=== PATIENT | male | born 1950 | race Caucasian/White ===

== ENCOUNTER 2022-10-03 17:51 | Emergency (ER) | payer OTHER, SELFPAY ==
[2022-10-03] VITALS (7 sets, daily range): BP systolic 94–108; BP diastolic 52–66; PULSE 73–82; RESP 18–25; TEMP 36.7; O2SAT 88–94; BMI 20.7
--- NOTE | 2022-10-03 18:16 | ECG_ITS ---
[facility] Test Date: 2022-10-03 Pat Name: Robbie Rodriguez Department: Room: Gender: Male Electronic Coils Supervisor: : 1950 Requested By: Shan Anaya Order Number: [id number] Yaron MD: Kamila Miguel M.D. Measurements Intervals [place] Rate: 87 P: 10 MO: 140 QRS: -3 QRSD: 87 T: 8 QT: 342 QTc: 412 Interpretive Statements SINUS RHYTHM WITH OCCASIONAL VENTRICULAR PREMATURE COMPLEXES POSSIBLE RIGHT VENTRICULAR CONDUCTION DELAY [RSR (QR) IN V1/V2] No previous ECG available for comparison Electronically Signed On 10-05-2022 12:06:25 VOICE PATHOLOGIST by Kamila Miguel M.D. [id number] f
--- NOTE | 2022-10-03 18:17 | XRR_ITS ---
PROCEDURE INFORMATION: Exam: XR Chest Exam date and time: 10/03/2022 7:27 PM Age: 71 years old Clinical indication: Shortness of breath; Additional info: SOB TECHNIQUE: Imaging protocol: Radiologic exam of the chest. Views: 1 view. COMPARISON: CR XR shoulder RT min 2V* [id number] 12/24/2015 3:21 PM FINDINGS: Tubes, catheters and devices: Left-sided Port-A-Cath. Lungs: Bilateral mid to lower lung field atelectasis versus infiltrate. Pleural spaces: Unremarkable. No pleural effusion. No pneumothorax. Heart/Mediastinum: Unremarkable. No cardiomegaly. Bones/joints: Unremarkable. XR/XR chest 1V portable [id number] IMPRESSION: Bilateral mid to lower lung field atelectasis versus infiltrate.
--- NOTE | 2022-10-03 18:21 | PC.NURSE ---
PT PLACED ON CONTINUOUS NIBP, SPO2, AND CM
[2022-10-03 18:28] LABS: Hemoglobin 9.5 g/dL (11.7-16.6); Mean Corpuscular HGB Conc 31.7 g/dL (30.0-36.0); Mean Corpuscular Hemoglobin 27.8 pg (28.0-34.0); Mean Corpuscular Volume 87.7 fl (80-94); Mean Platelet Volume 10.7 fL (7.4-10.4); Platelet Count 387 10^3/cmm (130-400); Red Blood Count 3.42 10^6/uL (4.1-5.3); Red Cell Distribution Width 16.7 % (12.1-15.1); White Blood Count 7.9 10^3/uL (4.0-10.0)
[2022-10-03] MEDS: ipratropium-albuterol 3 mL Neb INHALATION (18:32)
[2022-10-03 18:53] LABS: ABG PCO2 34.3 mmHg (35-45); Arterial Blood Gas Hematocrit 46.7 % (42-52); Base Excess ABG 3.9 mmol/L (-2.0-2.0); Blood Gas Allen Test Pos; Blood Gas Operator Identificat CAK; Blood Gas Sample Site Radial, left; Blood Gas Sample Type Arterial; Carboxyhemoglobin 1.3 %THgb (0.4-20.1); HCO3 ABG 26.8 mmol/L (22-26); HGB O2 Sat 92.9 % (95-100); Methemoglobin 0.6 % (0.4-1.5); Oxygen Device NC; Total Hemoglobin 15.2 g/dL (14-18)
[2022-10-03 19:14] LABS: Absolute Neutrophil 7.3 10^3/cmm (1.4-6.5); Anisocytosis 1+; Band Neutrophils Absolute 0.3 10^3/cmm (0.0-1.2); Eosinophils 0 %; Lymphocytes 1 %; Lymphocytes Absolute 0.1 10^3/cmm (1.2-3.4); Monocytes Absolute 0.4 10^3/cmm (0.1-0.6); Platelet Estimate Normal (Normal); Poikilocytosis 2+; Segmented Neutrophils 88 %; Total Cells Counted 100 (0-100)
[2022-10-03 19:15] LABS: Ovalocytes 2+; Toxic Granulation 1+; Toxic Vacuolation 1+
[2022-10-03 19:16] LABS: Acanthocytes Trace
[2022-10-03 19:19] LABS: NT Pro B Type Natriuretic Pept 176 pg/mL (0-125); Procalcitonin 0.08 ng/mL (0-0.5)
[2022-10-03 19:30] LABS: Alanine Aminotransferase 91 U/L (0-41); Albumin Level 2.3 g/dL (3.5-5.2); Alkaline Phosphatase 108 U/L (40-130); Anion Gap 14.9 (5-19); Aspartate Amino Transferase 53 U/L (0-40); Blood Urea Nitrogen 10 mg/dL (8-23); C Reactive Protein 114.7 mg/L (0.0-4.9); Calcium 8.7 mg/dL (8.5-10.5); Carbon Dioxide 24 mmol/L (22-29); Chloride 101 mmol/L (98-107); Globulin 2.8 g/dL (1.3-4.6); Glucose 99 mg/dL (65-115); Osmolality Calculated 281 mOsm/kg (285-295); Potassium 3.9 mmol/L (3.5-5.1); Sodium 136 mmol/L (136-145); Total Bilirubin 0.4 mg/dL (0.15-1.2); Total Protein 5.1 g/dL (6.6-8.7)
--- NOTE | 2022-10-03 20:23 | W.ED.SOB ---
HPI - SOB/Dyspnea General: Chief Complaint: Shortness of Breath/Dyspnea Stated Complaint: RESP DISTRESS Time Seen by Provider: 10/03/22 18:14 Source: patient and EMS History of Present Illness: HPI Narrative: 71-year-old male evidently with a history of post COVID lung disease presenting with increased shortness of breath and fever. Evidently his saturations were in the 70s on room air in the assisted, although the patient tells me he is usually on 3 L of oxygen. Currently does not feel short of breath. Received a breathing treatment in route. His temperature is 98.1 here. It was elevated in the assisted and he got medication for this. He says he is feeling better after his temperatures come down. He has had a cough with some sputum production. MD elicited complaint: shortness of breath Pertinent past history: other Exacerbating factors: exertion Relieving factors: oxygen and bronchodilators Associated symptoms: Reports chest congestion, cough, fever(s) and orthopnea; Deny chest pain, diaphoresis, dizziness, extremity pain, nausea or vomiting Treatment prior to arrival: oxygen and bronchodilator Review of Systems Const: Reports: fever(s) and chills; Denies: body aches or diaphoresis Eyes: Denies: change in vision ENMT: Denies: throat pain Card: Reports: orthopnea; Denies: chest pain Resp: Reports: dyspnea, productive cough and chest congestion GI: Denies: nausea or vomiting Musc: Denies: extremity pain Neuro: Denies: dizziness Physical Exam Const: GENERAL APPEARANCE: cooperative, ill appearing (Mildly) and frail appearing HENMT: COMMON NORMALS: normocephalic and Normal external nose present HEAD & SCALP: normocephalic FACE & SINUS: normal facial exam and face symmetric NOSE: Normal external nose present Eye: COMMON NORMALS: Equal, round and reactive pupils present and EOMs intact bilaterally PUPIL: Yes Equal, round and reactive pupils present Neck/C-Spine: GENERAL: Yes trachea midline Chest: CHEST: Yes Symmetrical chest wall rise Resp: COMMON NORMALS: normal respiratory effort, No use of accessory muscles and clear to auscultation bilaterally AUSCULTATION: clear to auscultation bilaterally Cardio: COMMON NORMALS: regular rate and regular rhythm RATE: regular rate RHYTHM: regular rhythm GI: COMMON NORMALS: Normal to inspection, nondistended, normoactive bowel sounds present, Soft to palpation and non-tender PALPATION: Yes Soft to palpation Extremity: COMMON NORMALS: no pedal edema Neuro: WILFREDO COMA SCALE: document GCS findings Forest coma scale eye opening: Spontaneous [place] coma scale verbal response: Orientated Wilfredo coma scale motor response: Obey commands Wilfredo coma scale total score: 15 Skin: COMMON NORMALS: no wounds Course Vital Signs: Vital signs: Vital Signs Temperature 98.1 F 10/03/22 17:57 Pulse Rate 75 10/03/22 20:49 Respiratory Rate 18 10/03/22 20:49 Blood Pressure 99/52 10/03/22 20:49 Pulse Oximetry 91 10/03/22 20:49 Oxygen Delivery Me thod 10/03/22 18:44 Oxygen Flow Rate 4 10/03/22 18:44 MDM - SOB/Dyspnea Medical Decision Making Patient is not in any respiratory distress. He is on 4 L satting 93%. Respiratory rate is fallen. He is sinus at 75 with a blood pressure of 100/60. Hemoglobin is 9-1/2. White blood cell count 7.9. pH is 7.5. PO2 was 69 on 3 L. Chest x-ray reveals bilateral mid to lower lung field atelectasis versus infiltrate. Will cover with antibiotics. We will give him steroids. Nebulizer treatments. Lab Data : 10/03/22 17:59 10/03/22 18:41 Labs/Radiology: Radiology Impressions Chest X-Ray 10/03/22 18:17 IMPRESSION: Bilateral mid to lower lung field atelectasis versus infiltrate. Laboratory Results WBC 7.9 10^3/uL (4.0-10.0) 10/03/22 17:59 RBC 3.42 10^6/uL (4.1-5.3) L 10/03/22 17:59 Hgb 9.5 g/dL (11.7-16.6) L 10/03/22 17:59 Hct 30.0 % (42.0-52.0) L 10/03/22 17:59 MCV 87.7 fl (80-94) 10/03/22 17:59 MCH 27.8 pg (28.0-34.0) L 10/03/22 17:59 MCHC 31.7 g/dL (30.0-36.0) 10/03/22 17:59 RDW 16.7 % (12.1-15.1) H 10/03/22 17:59 Plt Count 387 10^3/cmm (130-400) 10/03/22 17:59 MPV 10.7 fL (7.4-10.4) H 10/03/22 17:59 Lymph % (Auto) Not Reportable 10/03/22 17:59 [place] % (Auto) Not Reportable 10/03/22 17:59 Lymph # (Auto) Not Reportable 10/03/22 17:59 [place] # (Auto) Not Reportable 10/03/22 17:59 Total Counted 100 (0-100) 10/03/22 17:59 Atypical Lymphs % 0.0 % (0-5) 10/03/22 17:59 Absolute Neutrophils 7.3 10^3/cmm (1.4-6.5) H 10/03/22 17:59 Segmented Neutrophils 88 % 10/03/22 17:59 Abs Segm Neuts (Man) 7.0 10/cmm (1.6-7.1) 10/03/22 17:59 Band Neutrophils 4.0 % 10/03/22 17:59 Abs Band Neuts (Man) 0.3 10^3/cmm (0.0-1.2) 10/03/22 17:59 Absolute Lymphocytes 0.1 10^3/cmm (1.2-3.4) L 10/03/22 17:59 Lymphocytes (Manual) 1 % 10/03/22 17:59 Monocytes (Manual) 5.0 % 10/03/22 17:59 Absolute Monocytes 0.4 10^3/cmm (0.1-0.6) 10/03/22 17:59 Eosinophils (Manual) 0 % 10/03/22 17:59 Absolute Eosinophils 0.0 10^3/cmm (0.0-0.7) 10/03/22 17:59 Basophils (Manual) 0.0 % 10/03/22 17:59 Absolute Basophils 0.0 10^3/cmm (0.0-0.2) 10/03/22 17:59 Metamyelocytes 2.0 % 10/03/22 17:59 Toxic Granulation 1+ H 10/03/22 17:59 Toxic Vacuolation 1+ H 10/03/22 17:59 Platelet Estimate Normal (Normal) 10/03/22 17:59 Poikilocytosis 2+ H 10/03/22 17:59 Anisocytosis 1+ H 10/03/22 17:59 Ovalocytes 2+ H 10/03/22 17:59 Acanthocytes (Spur) Trace 11 17:59 PT 19.40 SECONDS (12.1-14.9) H 10/03/22 17:59 INR 1.60 (0.8-1.2) H 10/03/22 17:59 Specimen Type Arterial 10/03/22 18:41 Sample Site Radial, left 10/03/22 18:41 ABG pH 7.50 (7.35-7.45) H 10/03/22 18:41 ABG pCO2 34.3 mmHg (35-45) L 10/03/22 18:41 ABG pO2 69.0 mmHg (80.0-100.0) L 10/03/22 18:41 ABG HCO3 26.8 mmol/L (22-26) H 10/03/22 18:41 ABG Base Excess 3.9 mmol/L (-2.0-2.0) H 10/03/22 18:41 Colt Test Pos 10/03/22 18:41 Hematocrit 46.7 % (42-52) 10/03/22 18:41 Hgb O2 Saturation 92.9 % (95-100) L 10/03/22 18:41 Carboxyhemoglobin 1.3 %THgb (0.4-20.1) 10/03/22 18:41 Methemoglobin 0.6 % (0.4-1.5) 10/03/22 18:41 Total Hemoglobin 15.2 g/dL (14-18) 10/03/22 18:41 O2 Delivery Device Nc 10/03/22 18:41 O2 Liters/Min 3.0 % 10/03/22 18:41 FiO2 32.0 % 10/03/22 18:41 Fine Arts Teacher ID Cak 10/03/22 18:41 Sodium 136 mmol/L (136-145) 10/03/22 18:41 Potassium 3.9 mmol/L (3.5-5.1) 10/03/22 18:41 Chloride 101 mmol/L (98-107) 10/03/22 18:41 Carbon Dioxide 24 mmol/L (22-29) 10/03/22 18:41 Anion Gap 14.9 (5-19) 10/03/22 18:41 BUN 10 mg/dL (8-23) 10/03/22 18:41 Creatinine 0.4 mg/dL (0.7-1.2) L 10/03/22 18:41 GFR Calculation Not Reportable 10/03/22 18:41 Glucose 99 mg/dL (65-115) 10/03/22 18:41 Calculated Osmolality 281 mOsm/kg (285-295) L 10/03/22 18:41 Lactic Acid 1.0 mmol/L (0.5-2.2) 10/03/22 17:59 Calcium 8.7 mg/dL (8.5-10.5) 10/03/22 18:41 Total Bilirubin 0.4 mg/dL (0.15-1.2) 10/03/22 18:41 AST 53 U/L (0-40) H 10/03/22 18:41 ALT 91 U/L (0-41) H 10/03/22 18:41 Alkaline Phosphatase 108 U/L (40-130) 10/03/22 18:41 C-Reactive Protein 114.7 mg/L (0.0-4.9) H 10/03/22 18:41 NT-Pro-B Natriuret Pep 176 pg/mL (0-125) H 10/03/22 18:41 Total Protein 5.1 g/dL (6.6-8.7) L 10/03/22 18:41 Albumin 2.3 g/dL (3.5-5.2) L 10/03/22 18:41 Globulin 2.8 g/dL (1.3-4.6) 10/03/22 18:41 Procalcitonin 0.08 ng/mL (0-0.5) 10/03/22 18:41 Nasal Influ A H1 2008 PCR Not detected (NOT DETECT) 10/03/22 18:41 Adenovirus (PCR) Not detected (NOT DETECT) 10/03/22 18:41 C. pneumoniae DNA (PCR) Not detected (NOT DETECT) 10/03/22 18:41 Coronavirus 229E (PCR) Not detected (NOT DETECT) 10/03/22 18:41 Human Metapneumovir PCR Not detected (NOT DETECT) 10/03/22 18:41 Influenza A (H1) PCR Not detected (NOT DETECT) 10/03/22 18:41 Influenza A (H3) PCR Not detected (NOT DETECT) 10/03/22 18:41 Influenza Type A (PCR) Not detected (NOT DETECT) 11 18:41 Influenza Type B (PCR) Not detected (NOT DETECT) 10/03/22 18:41 M. pneumoniae (PCR) Not detected (NOT DETECT) 10/03/22 18:41 Parainfluenza 1 (PCR) Not detected (NOT DETECT) 11 18:41 Parainfluenza 2 (PCR) Not detected (NOT DETECT) 10/03/22 18:41 Parainfluenza 3 (PCR) Not detected (NOT DETECT) 10/03/22 18:41 Parainfluenza 4 (PCR) Not detected (NOT DETECT) 10/03/22 18:41 RSV Type A (PCR) Not detected (NOT DETECT) 10/03/22 18:41 RSV Type B (PCR) Not detected (NOT DETECT) 10/03/22 18:41 Entero/Rhino (PCR) Not detected (NOT DETECT) 10/03/22 18:41 SARS-CoV-2 (PCR) Detected (NOT DETECT) A 10/03/22 18:41 Discharge Plan Discharge Patient Disposition: Home Clinical Impression: Acute exacerbation of chronic obstructive airways disease Condition: Stable Prescriptions: New Medrol (Shamir) 4 mg tablets,dose pack See Rx Instructions .ROUTE .COMPLEX Qty: 21 0RF Rx Instructions: orally per package directions doxycycline hyclate 100 mg tablet 100 mg PO BID 7 Days Qty: 14 0RF albuterol sulfate 2.5 mg/0.5 mL solution for nebulization 2.5 mg inhalation Q4H PRN (Reason: shortness of breath or wheezing) Qty: 30 0RF Paxlovid (EUA) 300 mg (150 mg x 2)-100 mg tablets,dose pack See Rx Instructions .ROUTE .COMPLEX Qty: 30 0RF Rx Instructions: take TWO 150 mg tablets of nirmatrelvir with ONE 100 mg tablet of ritonavir twice daily for 5 days Discharge Orders: Discharge ED (Routine); Ordered 10/03/22 Ordered By: Shan Kimball Referrals: Rubia Maya MD [Primary Care Provider] - 1-3 days Patient Instructions: Acute Bronchitis (ED), COPD (Chronic Obstructive Pulmonary Disease) (ED), COVID-19 (Coronavirus Disease 2019) (ED) Activity Restrictions/Additional Instructions: Use the albuterol prescribed every 4 hours while awake for the next 48 hours, then as needed. Other medications as directed. Return for worsening shortness of breath despite treatment, continued fever despite 3-4 doses of antibiotics, chest pain, mental status changes, any other concerning symptoms. Oxygen should be a 3 to 4 L by nasal cannula until cleared to move down by physician. Follow-up with your doctor this week. Coding Level of Care Code ED Slope Hoist Operator for Melissa Fwd Exam Comprehensive
[2022-10-03 20:33] LABS: Adenovirus Not Detected (NOT DETECT); Chlamydia Pneumoniae Not Detected (NOT DETECT); Coronavirus 229E,HKU1,NL63,OC4 Not Detected (NOT DETECT); Human Metapneumovirus Not Detected (NOT DETECT); Human Rhinovirus/Enterovirus Not Detected (NOT DETECT); Influenza A Not Detected (NOT DETECT); Influenza A H1 Not Detected (NOT DETECT); Influenza A H1-2009 Not Detected (NOT DETECT); Influenza A H3 Not Detected (NOT DETECT); Influenza B Not Detected (NOT DETECT); Mycoplasma Pneumoniae Not Detected (NOT DETECT); Parainfluenza Virus Type 1 Not Detected (NOT DETECT); Parainfluenza Virus Type 2 Not Detected (NOT DETECT); Parainfluenza Virus Type 3 Not Detected (NOT DETECT); Parainfluenza Virus Type 4 Not Detected (NOT DETECT); Respiratory Syncytial Virus A Not Detected (NOT DETECT); Respiratory Syncytial Virus B Not Detected (NOT DETECT); SARS-COV-2 Detected (NOT DETECT)
[2022-10-03] MEDS: doxycycline 100 mg Tablet PO (21:14)
== END 2022-10-03 21:43 | disposition home or self-care (01) ==
PROVIDERS: Emergency Provider Emergency Medicine; PCP Family Medicine
DX: J44.1 Chronic obstructive pulmonary disease with (acute) exacerbation (principal)
CPT/HCPCS: 36415; 36600; 71045; 80053; 82805; 83605; 83880; 84145; 85007; 85025; 85610; 86140; 87040; 87486; 87581; 87633; 93005; 94640; 96374; 99285; J2930

== ENCOUNTER 2022-10-05 08:10 | Inpatient (IN) | payer OTHER, SELFPAY ==
[2022-10-05] VITALS (12 sets, daily range): BP systolic 94–111; BP diastolic 60–71; PULSE 56–113; RESP 14–24; TEMP 36.4–38.9; O2SAT 89–99
--- NOTE | 2022-10-05 08:13 | XR_ITS ---
WS: [id number] Portable AP upright chest, 10/05/2022 Clinical Data: dyspnea/cough Comparison: Chest, 10/03/2022 Findings: Bilateral patchy opacities have not changed in both lower lobes. These opacities could repr esent atelectasis versus pneumonia. The heart remains enlarged. No nodules, masses or effusions are s een. The pulmonary vascularity is not remarkable. No pneumothorax is present. There is a left Port-A- Cath which ends in the superior vena cava. There are monitor leads on the chest wall. XR/XR chest 1V portable [id number] Impression: 1. No change in bilateral lower lobe opacities. 2. Cardiomegaly.
--- NOTE | 2022-10-05 08:25 | W.ED.SOB ---
HPI - SOB/Dyspnea General: Chief Complaint: Shortness of Breath/Dyspnea Stated Complaint: SOB, Covid, fever Time Seen by Provider: 10/05/22 08:12 Source: patient Mode of arrival: ambulatory History of Present Illness: HPI Narrative: 71-year-old male presents from the group home complaining of shortness of breath fever and hypoxia. He had this onset of symptoms 11 days ago and was tested positive for COVID 2 days ago. He had been hospitalized at [facility] for COVID and complications earlier this year. He was hospitalized later on this summer in June and July as well. On October 03 he had a positive COVID PCR test was given Paxlovid steroids and antibiotics and discharged back to the group home. He came back today hypoxic requiring 5 to 6 L by nasal cannula. He denies any chest pain. He has a history of DVT/PE dating back into the 90s and he is on anticoagulant. MD elicited complaint: shortness of breath and cough Pertinent past history: PE and DVT Onset (ago): day(s) () Timing: constant Severity: severe Exacerbating factors: exertion and coughing Relieving factors: oxygen and rest Associated symptoms: Reports chest congestion, cough and fever(s); Deny abdominal pain, chest pain, diaphoresis, dizziness, extremity pain, hemoptysis, lightheadedness, myalgias, nausea, orthopnea, palpitations, paresthesias, polydipsia, polyuria, rash, sense of impending doom, syncope or vomiting Treatment prior to arrival: oxygen Review of Systems Const: Reports: fever(s), chills, fatigue and malaise; Denies: diaphoresis ENMT: Denies: throat pain, ear or mastoid pain, nasal discharge or nasal congestion Card: Denies: chest pain, palpitations, lightheadedness, syncope or orthopnea Resp: Reports: dyspnea, non-productive cough, wheezing and chest congestion; Denies: productive cough or hemoptysis GI: Denies: abdominal pain, nausea or vomiting : Denies: flank pain, difficulty urinating, dysuria, urinary frequency or urinary urgency Musc: Denies: neck pain, back pain or extremity pain Skin/Breast: Denies: rash or pruritus Neuro: Denies: dizziness Endo: Denies: polyuria or polydipsia PFS ED PFSH: Medical History BPH (benign prostatic hyperplasia) Diastolic CHF DVT (deep venous thrombosis) GERD (gastroesophageal reflux disease) Hyperlipidemia Hypotension Neuropathy Obstructive sleep apnea Pneumonia due to COVID-19 virus Waldenstroms macroglobulinemia Surgical History History of tonsillectomy Family History Other CAD (coronary artery disease) Social History Smoking and tobacco status: former smoker Alcohol intake: never Physical Exam Const: COMMON NORMALS: no acute distress GENERAL APPEARANCE: cooperative and comfortable ORIENTATION/CONSCIOUSNESS: Yes awake, Yes oriented to person, Yes oriented to place and Yes oriented to time HENMT: COMMON NORMALS: normocephalic, atraumatic and hearing grossly normal bilaterally HEAD & SCALP: normocephalic and atraumatic Resp: COMMON NORMALS: normal respiratory effort, No retractions and No use of accessory muscles AUSCULTATION: rhonchi and wheezes Cardio: COMMON NORMALS: regular rhythm and No murmurs present (Cardio) RATE: tachycardic RHYTHM: regular rhythm GI: COMMON NORMALS: Soft to palpation and No hepatosplenomegaly present AUSCULTATION: Yes normoactive bowel sounds PALPATION: Yes Soft to palpation, No Tenderness to palpation present (GI), No Guarding due to palpation present (GI) and Yes No hepatosplenomegaly present Extremity: COMMON NORMALS: normal to inspection, capillary refill normal, no clubbing, cyanosis or edema, no calf tenderness and no pedal edema Neuro: SENSORIUM/ORIENTATION: Yes oriented to person, Yes oriented to place and Yes oriented to time Skin: COMMON NORMALS: no rashes or lesions noted GENERAL SKIN EXAM: no rashes or lesions noted Course Vital Signs: Vital signs: Vital Signs Temperature 97.9 F 10/05/22 15:35 Pulse Rate 76 10/05/22 15:35 Respiratory Rate 18 10/05/22 15:35 Blood Pressure 97/61 10/05/22 15:35 Pulse Oximetry 91 10/05/22 15:35 Oxygen Delivery Me thod 10/05/22 15:35 Oxygen Flow Rate 4 10/05/22 14:00 MDM - SOB/Dyspnea Medical Decision Making To CT shows pneumonia no PE. Patient is still requiring oxygen White count of 14,000 with a left shift cultures done and started on Levaquin Zosyn and vancomycin. Discussed with hospitalist orders written. Medical Records I reviewed the patient's medical records. Lab Data I reviewed the patient's lab results. : 10/05/22 09:03 10/05/22 09:03 Labs/Radiology: Radiology Impressions Chest X-Ray 10/05/22 08:13 Impression: 1. No change in bilateral lower lobe opacities. 2. Cardiomegaly. Chest CTA 10/05/22 08:27 IMPRESSION: 1. No segmental pulmonary embolism or thoracic aortic dissection. No thoracic aortic aneurysm. 2. Bilateral lower lobe and inferior lingula more confluent ground-glass opacities are seen with some small regions of patchy consolidation in bilateral lower lobe posterior basilar regions. These findings may represent post acute covert syndrome or multifocal pneumonia, although lung parenchymal leukemic involvement cannot be excluded. Recommend correlation with clinical findings and follow-up. 3. Multiple nodular 4-5 mm ground-glass opacities are seen in bilateral apical regions. Right upper lobe 3-5 mm 3 nodules are also seen (series 4, images 14 and 15). Recommend short interval follow-up in 3-6 months. 4. Moderate to severe coronary arterial atherosclerotic vascular calcifications. COMMENTS: Consistent with the [place] [employer]'s Incidental Findings Committee white paper (J Am Josefina Radiol 2015): In patients aged 35 years and older with an incidental thyroid nodule equal to or greater than 1.[address], MRI or extrathyroidal US, further evaluation with dedicated thyroid US is recommended for patients with normal life expectancy and without comorbidities. For smaller nodules without suspicious features, no further evaluation or follow up is recommended. Laboratory Results WBC 14.6 10^3/uL (4.0-10.0) H 10/05/22 09:03 RBC 4.63 10^6/uL (4.1-5.3) 10/05/22 09:03 Hgb 12.7 g/dL (11.7-16.6) 10/05/22 09:03 Hct 40.8 % (42.0-52.0) L 10/05/22 09:03 MCV 88.1 fl (80-94) 10/05/22 09:03 MCH 27.4 pg (28.0-34.0) L 10/05/22 09:03 MCHC 31.1 g/dL (30.0-36.0) 10/05/22 09:03 RDW 16.8 % (12.1-15.1) H 10/05/22 09:03 Plt Count 493 10^3/cmm (130-400) H 10/05/22 09:03 MPV 10.2 fL (7.4-10.4) 10/05/22 09:03 Neut % (Auto) 90.9 % 10/05/22 09:03 Lymph % (Auto) 1.0 % 10/05/22 09:03 [place] % (Auto) 5.7 % 10/05/22 09:03 Eos % (Auto) 0.0 % 10/05/22 09:03 Baso % (Auto) 0.1 % 10/05/22 09:03 Neut # (Auto) 13.29 10^3/uL (1.8-7.7) H 10/05/22 09:03 Lymph # (Auto) 0.2 10^3/uL (0.8-4.8) L 10/05/22 09:03 [place] # (Auto) 0.8 10^3/uL (0.2-0.9) 10/05/22 09:03 Eos # (Auto) 0.0 10^3/uL (0.0-0.8) 10/05/22 09:03 Baso # (Auto) 0.0 10^3/uL (0.0-0.1) 10/05/22 09:03 Nucleated RBC % (auto) 0 % 10/05/22 09:03 Nucleated RBCs # 0.0 /100WBC 10/05/22 09:03 Sodium 139 mmol/L (136-145) 10/05/22 09:03 Potassium 4.1 mmol/L (3.5-5.1) 10/05/22 09:03 Chloride 100 mmol/L (98-107) 10/05/22 09:03 Carbon Dioxide 26 mmol/L (22-29) 10/05/22 09:03 Anion Gap 17.1 (5-19) 10/05/22 09:03 BUN 11 mg/dL (8-23) 10/05/22 09:03 Creatinine 0.5 mg/dL (0.7-1.2) L 10/05/22 09:03 GFR Calculation Not Reportable 10/05/22 09:03 Glucose 107 mg/dL (65-115) 10/05/22 09:03 Calculated Osmolality 288 mOsm/kg (285-295) 10/05/22 09:03 Lactic Acid 3.3 mmol/L (0.5-2.2) H 10/05/22 09:03 Lactic Acid (Sepsis) 2.1 mmol/L (0.5-2.2) 10/05/22 11:13 Calcium 9.7 mg/dL (8.5-10.5) 10/05/22 09:03 Total Bilirubin 0.5 mg/dL (0.15-1.2) 10/05/22 09:03 Direct Bilirubin 0.20 mg/dL (0.00-0.30) 10/05/22 09:03 AST 63 U/L (0-40) H 10/05/22 09:03 ALT 99 U/L (0-41) H 10/05/22 09:03 Alkaline Phosphatase 131 U/L (40-130) H 10/05/22 09:03 C-Reactive Protein 60.5 mg/L (0.0-4.9) H 10/05/22 09:03 Total Protein 6.3 g/dL (6.6-8.7) L 10/05/22 09:03 Albumin 3.0 g/dL (3.5-5.2) L 10/05/22 09:03 Globulin 3.3 g/dL (1.3-4.6) 10/05/22 09:03 Procalcitonin 0.15 ng/mL (0-0.5) 10/05/22 09:03 Urine Color Yellow (Yellow) 10/05/22 11:35 Urine Appearance Clear (CLEAR) 10/05/22 11:35 Urine pH 7 (5-7) 10/05/22 11:35 Ur Specific [place] 1.010 (1.005-1.030) 10/05/22 11:35 Urine Protein Neg (Negative) 10/05/22 11:35 Urine Glucose (UA) Norm (Normal) 10/05/22 11:35 Urine Ketones Negative (Negative) 10/05/22 11:35 Urine Blood Neg (Negative) 10/05/22 11:35 Urine Nitrate Negative (Negative) 10/05/22 11:35 Urine Bilirubin Neg (Negative) 10/05/22 11:35 Urine Urobilinogen 4 mg/dL (Negative) H 10/05/22 11:35 Ur Leukocyte Esterase Negative (Negative) 10/05/22 11:35 Influenza Type A Ag negative (Negative) 10/05/22 09:03 Influenza Type B Ag negative (Negative) 10/05/22 09:03 Discharge Plan Discharge Patient Disposition: Admitted As Inpatient Admit Provider: Yohan Krause Clinical Impression: Pneumonia, Acute exacerbation of chronic obstructive airways disease, Pneumonia due to COVID-19 virus, Waldenstroms macroglobulinemia, Diastolic CHF Condition: Stable Coding Level of Care Code ED Bsa Officer for Melissa Maldonado
--- NOTE | 2022-10-05 08:27 | CTR_ITS ---
PROCEDURE INFORMATION: Exam: CTA Chest With Contrast Exam date and time: 10/05/2022 9:36 AM Age: 71 years old Clinical indication: Shortness of breath; Patient HX: Leukemia; Additional info: Post covid hypoxia TECHNIQUE: Imaging protocol: Computed tomographic angiography of the chest with contrast. 3D rendering (Not supervised by radiologist): MIP and/or 3D reconstructed images were created by the technologist. Radiation optimization: All CT scans at this facility use at least one of these dose optimization techniques: automated exposure control; mA and/or kV adjustment per patient size (includes targeted exams where dose is matched to clinical indication); or iterative reconstruction. Contrast material: OMNI 350; Contrast volume: 76 ml; Contrast route: INTRAVENOUS (IV); COMPARISON: CR XR chest 1V portable [id number] 10/05/2022 9:20 AM RADIATION DOSE METRICS: Total DLP (mGy-cm): 292.78 FINDINGS: Pulmonary arteries: No CT evidence for segmental pulmonary emboli. The main pulmonary arteries and outflow trunk are unremarkable. Aorta: No thoracic aortic aneurysm. No thoracic aortic dissection. Thyroid: Heterogeneous attenuation of the thyroid glands is seen with left lower thyroid 1.8 x 1.6 cm irregular nodule. Sonography may be performed for complete assessment. Trachea: The central airway is normal. Lungs: There are normal lung volumes. Moderate centrilobular emphysema is seen, most prominent in the upper lobes. Multiple nodular 4-5 mm ground-glass opacities are seen in bilateral apical regions. Right upper lobe 3-5 mm 3 nodules are also seen (series 4, images 14 and 15). Recommend short interval follow-up in 3-6 months. Bilateral lower lobe and inferior lingula more confluent ground-glass opacities are seen with some small regions of patchy consolidation in bilateral lower lobe posterior basilar regions. These findings may represent post acute COVID syndrome or multifocal pneumonia, although lung parenchymal leukemic involvement cannot be excluded. Recommend correlation with clinical findings and follow-up. Pleural spaces: No pneumothorax. No pleural effusion. Heart: The heart size is within normal limits. The RV/LV ratio is normal (no CT evidence of RV strain). There is no pericardial effusion. Moderate mitral annulus ossifications are seen. Moderate to severe left anterior descending coronary arterial atherosclerotic vascular calcifications. Lymph nodes: No enlarged lymph nodes. Bones/joints: No acute osseous abnormalities. Small degenerative osteophytes and mild degenerative disc disease changes are seen in the lower thoracic spine. Soft tissues: Unremarkable. Other: Some calcified visualized upper abdominal lymph nodes are seen. CT/CT angio chest PE protcl [id number] IMPRESSION: 1. No segmental pulmonary embolism or thoracic aortic dissection. No thoracic aortic aneurysm. 2. Bilateral lower lobe and inferior lingula more confluent ground-glass opacities are seen with some small regions of patchy consolidation in bilateral lower lobe posterior basilar regions. These findings may represent post acute covert syndrome or multifocal pneumonia, although lung parenchymal leukemic involvement cannot be excluded. Recommend correlation with clinical findings and follow-up. 3. Multiple nodular 4-5 mm ground-glass opacities are seen in bilateral apical regions. Right upper lobe 3-5 mm 3 nodules are also seen (series 4, images 14 and 15). Recommend short interval follow-up in 3-6 months. 4. Moderate to severe coronary arterial atherosclerotic vascular calcifications. COMMENTS: Consistent with the [employer]'s Incidental Findings Committee white paper (J Am Josefina Radiol 2015): In patients aged 35 years and older with an incidental thyroid nodule equal to or greater than 1.[address], MRI or extrathyroidal US, further evaluation with dedicated thyroid US is recommended for patients with normal life expectancy and without comorbidities. For smaller nodules without suspicious features, no further evaluation or follow up is recommended.
[2022-10-05] MEDS: sodium chloride 0.9% 1,000 ML 999 ML IV (09:10)
[2022-10-05] MEDS: ondansetron 2 mg/ML SDV 2 mL 4 MG IVP (09:10)
[2022-10-05 09:23] LABS: Basophils % 0.1 %; Hematocrit 40.8 % (42.0-52.0); Hemoglobin 12.7 g/dL (11.7-16.6); Lymphocytes # 0.2 10^3/uL (0.8-4.8); Mean Corpuscular HGB Conc 31.1 g/dL (30.0-36.0); Mean Corpuscular Hemoglobin 27.4 pg (28.0-34.0); Mean Corpuscular Volume 88.1 fl (80-94); Mean Platelet Volume 10.2 fL (7.4-10.4); Monocytes # 0.8 10^3/uL (0.2-0.9); Monocytes % 5.7 %; Neutrophils # 13.29 10^3/uL (1.8-7.7); Neutrophils % 90.9 %; Nucleated Red Blood Cells % 0 %; Platelet Count 493 10^3/cmm (130-400); Red Blood Count 4.63 10^6/uL (4.1-5.3); Red Cell Distribution Width 16.8 % (12.1-15.1); White Blood Count 14.6 10^3/uL (4.0-10.0)
[2022-10-05 09:35] LABS: Blood Urea Nitrogen 11 mg/dL (8-23); Calcium 9.7 mg/dL (8.5-10.5); Carbon Dioxide 26 mmol/L (22-29); Chloride 100 mmol/L (98-107); Glucose 107 mg/dL (65-115); Osmolality Calculated 288 mOsm/kg (285-295); Sodium 139 mmol/L (136-145)
[2022-10-05 09:36] LABS: Anion Gap 17.1 (5-19); Potassium 4.1 mmol/L (3.5-5.1)
[2022-10-05] MEDS: iohexol 350 mg/mL 500 mL Btl (per mL) IV (09:48)
[2022-10-05 10:10] LABS: Lactic Sepsis W/Reflex 3.3 mmol/L (0.5-2.2)
[2022-10-05 10:18] LABS: Influenza A by IFA negative (Negative); Influenza B by IFA negative (Negative)
[2022-10-05 11:02] LABS: Reflex Lactate Order REFLEX LACTIC ORDERD
[2022-10-05 11:42] LABS: Add Urine Microscopic? NO; Charge for UA Resulting for Rev
[2022-10-05 11:45] LABS: Lactic Acid level (Lactate) 2.1 mmol/L (0.5-2.2)
[2022-10-05] MEDS: piperacillin-tazobactam 3.375 GM in sodium chloride 0.9% (plus) 50 ML IV (11:46)
[2022-10-05 11:49] LABS: Bilirubin Urine Neg (Negative); Blood Urine Neg (Negative); Glucose Urine UA Norm (Normal); Ketones Urine Negative (Negative); Leukocyte Esterase Urine Negative (Negative); Nitrate Urine Negative (Negative); Protein Urine Neg (Negative); Urine Appearance Clear (CLEAR); Urine Color Yellow (Yellow); Urobilinogen Urine 4 mg/dL (Negative); pH Urine 7 (5-7)
[2022-10-05] MEDS: vancomycin 1,000 MG in sodium chloride 0.9% 250 ML 250 MG IV (12:21)
[2022-10-05 13:45] LABS: C Reactive Protein 60.5 mg/L (0.0-4.9)
[2022-10-05] MEDS: levofloxacin-dextrose 5 % 750 MG/150 ML PREMIX 100 MG IV (13:50)
[2022-10-05 13:51] LABS: Procalcitonin 0.15 ng/mL (0-0.5)
--- NOTE | 2022-10-05 14:08 | P.HP_ITS ---
Providers/Chief Complaint Admitting Physician: Yohan Krause MD Primary Care Provider: Rubia Smart MD Chief Complaint: SOB, Covid, fever History of Present Illness Robbie Rodriguez is a 71 year old male with past history of Waldenstrom's macroglobulinemia as well as DVT who presents from a local group home with fever, and hypoxia. Patient relates he has had multiple hospitalizations at [facility] for COVID and complications regarding this. He reports he was first sick with with COVID in March, and had hospitalizations in June and July as well. I am unclear from his description whether his test was actually positive at every visit or not. He recently came into the emergency department here on October 03 with shortness of breath and fever. At that time he was given a Medrol Dosepak, doxycycline, and Paxlovid. His last hospitalization at [facility] in July he was ventilated for a short period of time. He denies any chest discomfort. In the emergency department he received Zosyn, vancomycin, and it appears Levaquin. He also received some IV fluids. I was able to confirm with the nursing facility that he had a positive PCR, done at [facility], on July 22. He had a rapid COVID done yesterday at the facility that was negative. I have some references and an incomplete record from [facility] from the group home that he potentially had gram-negative pneumonia at 1 point in July. Will ask for old records to confirm this. Review of Systems General: Reports: 10 or more systems reviewed and unremarkable except in HPI and below Const: Reports: fever(s) Eyes: Denies: change in vision ENMT: Denies: throat pain Card: Denies: chest pain Resp: Reports: dyspnea GI: Denies: abdominal pain, hematochezia or melena : Denies: flank pain Musc: Denies: neck pain Skin/Breast: Denies: rash Neuro: Denies: headache(s) Psych: Denies: anxiety or depression Endo: Denies: polyuria Pavel/Lymph: Denies: easy bruising All/Imm: Denies: urticaria Medications/Allergies Home Medications Medication Instructions Recorded Confirmed Last Taken Type doxycycline hyclate 100 mg tablet 100 mg PO BID 7 days #14 tabs 10/03/22 10/05/22 Unknown Rx methylprednisolone 4 mg tablets in See Rx Instructions PO .COMPLEX 10/03/22 10/05/22 Unknown Rx a dose pack (Medrol (Shamir)) #21 ea nirmatrelvir 300 mg (150 mg See Rx Instructions PO .COMPLEX 10/03/22 10/05/22 Unknown Rx x2)-ritonavir 100 mg tablet,dose #30 ea pack(EUA) (Paxlovid) albuterol sulfate 2.5 mg/0.5 mL 2.5 mg inhalation BID PRN 10/05/22 10/05/22 Unknown History solution for nebulization shortness of breath or wheezing aspirin 81 mg chewable tablet 81 mg PO DAILY@0800 10/05/22 10/05/22 Unknown History atorvastatin 40 mg tablet 40 mg PO DAILY 10/05/22 10/05/22 Unknown History benzonatate 100 mg capsule 100 mg PO TID PRN Cough 10/05/22 10/05/22 Unknown History budesonide-formoterol HFA 160 2 puff inhalation BID 10/05/22 10/05/22 Unknown History mcg-4.5 mcg/actuation aerosol inhaler cetirizine 10 mg tablet 10 mg PO DAILY PRN Allergy Symptoms 10/05/22 10/05/22 Unknown History docusate sodium 100 mg capsule 100 mg PO DAILY 10/05/22 10/05/22 Unknown History (Colace) finasteride 5 mg tablet 5 mg PO DAILY 10/05/22 10/05/22 Unknown History gabapentin 300 mg capsule 300 mg PO BID 10/05/22 10/05/22 Unknown History guaifenesin 600 mg tablet, 600 mg PO BID 10/05/22 10/05/22 Unknown History extended release 12 hr inulin 5 gram/5.8 gram oral powder 5.8 g PO DAILY PRN Fiber 10/05/22 10/05/22 Unknown History ipratropium 0.5 mg-albuterol 3 mg 3 ml inhalation Q6H PRN Shortness 10/05/22 10/05/22 Unknown History (2.5 mg base)/3 mL nebulization Of Breath soln midodrine 2.5 mg tablet 2.5 mg PO TID 10/05/22 10/05/22 Unknown History pantoprazole 40 mg tablet,delayed 40 mg PO DAILY 10/05/22 10/05/22 Unknown History release polyethylene glycol 3350 17 17 g PO DAILY 10/05/22 10/05/22 Unknown History gram/dose oral powder (Miralax) rivaroxaban 20 mg tablet (Xarelto) 20 mg PO DAILY 10/05/22 10/05/22 Unknown History Allergies Allergy/AdvReac Type Severity Reaction Status Date / Time No Known Allergies Allergy Unverified 10/05/22 12:08 PFSH Acute PFSH: Medical History (Updated 10/05/22 @ 14:40 by Yohan Krause MD) BPH (benign prostatic hyperplasia) Diastolic CHF DVT (deep venous thrombosis) GERD (gastroesophageal reflux disease) Hyperlipidemia Hypotension Neuropathy Obstructive sleep apnea Pneumonia due to COVID-19 virus Waldenstroms macroglobulinemia Surgical History (Updated 10/05/22 @ 14:14 by Yohan Krause MD) History of tonsillectomy Family History (Updated 10/05/22 @ 14:14 by Yohan Krause MD) Other CAD (coronary artery disease) Social History (Updated 10/05/22 @ 14:15 by Yohan Krause MD) Smoking and tobacco status: former smoker Alcohol intake: never Other PFSH information: Supplemental PFSH Information: History of port placement, left chest Vitals/I&O/Wt Last Vital Signs Temp 102.1 F H 10/05/22 08:11 Pulse 74 10/05/22 11:45 Resp 16 10/05/22 11:45 BP 98/61 10/05/22 11:45 Pulse Ox 95 10/05/22 11:45 O2 Del Method 10/05/22 11:45 O2 Flow Rate 4 10/05/22 11:45 10/04/22 10/05/22 10/05/22 22:59 06:59 14:59 Intake Total 1300 / 1300 Balance 1300 / 1300 Weight last 48 hrs Weight 68.039 kg Physical Exam Narrative: General exam is a white male, no distress, on 4 L of oxygen with an adequate saturation of 96% HEENT: Atraumatic and normocephalic. Pupils equally round. Oropharynx clear without thrush Neck is supple no lymphadenopathy or thyromegaly Cardiovascular regular rate and rhythm without murmur, no S3 or S4 Lungs few dry crackles. No wheezes, port noted left side of chest Abdomen is soft with positive bowel sounds. No obvious organomegaly exams deferred Extremities no cyanosis clubbing or edema, cap refill brisk Skin no rash Neuro no obvious focal deficits. Data : 10/05/22 09:03 10/05/22 09:03 Other Labs: CTA demonstrates no pulmonary embolism, bilateral lower lobe infiltrates are noted. EKG demonstrates left axis deviation, 1 PVC, no acute changes Calcium is normal CRP 60.5 Lactic acid 3.3 Procalcitonin 0.15 Urinalysis negative Influenza negative Recent COVID PCR + October 03 BNP 2 days ago 176 Liver panel 2 days ago demonstrated albumin of 2.3, AST 53, ALT 91, total bili 0.4 Blood cultures were drawn. Previous blood cultures from October 03 still negative Micro: Microbiology 10/05/22 09:08 Blood Culture - Preliminary Blood SPECIMEN COLLECTED 10/05/22 09:03 Blood Culture - Preliminary Blood SPECIMEN COLLECTED A&P Assessment and plan (1) Pneumonia: I believe the patient has superimposed bacterial pneumonia. Procalcitonin is not elevated, but he is immunocompromised. He recently had a positive COVID PCR on July 22. COVID PCR here is + October 03. I do not think these are separate infections. I do not see a reason to continue steroid use, or prescribe antiviral at this time. Note that he recently received some doses of Paxil of it and dexamethasone. Broad-spectrum antibiotics will be initiated, including vancomycin and meropenem. Sputum culture, MRSA PCR, bacterial antigens will be performed Bacteremia is not excluded. Await cultures which were drawn. Note that he has a port. At this point considering positive COVID PCR l on July 22 I do not think he has to be put in COVID isolation. I do think reverse isolation is appropriate considering his past history of malignancy. He relates that his oxygen level varies quite a bit. Upon admission to the nursing facility from [facility] he was on 5 L of oxygen. Currently he is on 4 L which is an improvement. However, they occasionally get a low oxygen saturation in the 80s. I am not sure if this is a true reading, or in fact he goes low quickly with any exertion which certainly could happen post COVID with development of chronic lung changes/fibrosis Secondary to his recurrent hospitalizations, complicated course, development of chronic lung disease post COVID it will be beneficial for pulmonary to evaluate him to try to determine a treatment plan forward to reduce hospitalizations in the future. (2) Pneumonia due to COVID-19 virus: Past history of pneumonia secondary Covid 19. Last PCR + July 22 at outside facility. Rapid was negative yesterday. COVID PCR positive here on October 03. He did receive initiation of Paxil Lucius, and dexamethasone on the sixth. At this point I do not believe he has another recurrent infection with COVID on October 03, when he had the infection July 22. Will ask for old records (3) Waldenstroms macroglobulinemia: Last chemotherapy in March (4) DVT (deep venous thrombosis): Distant history of DVT No pulmonary embolism on CTA Continue Xarelto (5) Diastolic CHF: No evidence of heart failure currently Does not need large amounts of IV fluids with his chronic lung disease. Discontinue IV fluids. Plan Multiple other medical problems as outlined in past medical history Full code Xarelto will suffice for DVT prophylaxis Attestations Medical Necessity Statement*: Will require greater than 2 midnight stay for evaluation and treatment of pneumonia and hypoxemia with IV antibiotics Coding Level of Care Code Acute Managed Care Liaison for [facility] Fwd Diagnoses Pneumonia J18.9 Pneumonia due to COVID-19 virus U07.1; J12.82 Waldenstroms macroglobulinemia C88.0 DVT (deep venous thrombosis) I82.409 Diastolic CHF I50.30
[2022-10-05 14:52] LABS: Alanine Aminotransferase 99 U/L (0-41); Alkaline Phosphatase 131 U/L (40-130); Aspartate Amino Transferase 63 U/L (0-40); Globulin 3.3 g/dL (1.3-4.6); Total Bilirubin 0.5 mg/dL (0.15-1.2); Total Protein 6.3 g/dL (6.6-8.7)
[2022-10-05] MEDS: meropenem 2,000 MG in sodium chloride 0.9% (100 ml) 100 ML 200 MG IV ×2 (16:29→23:45)
[2022-10-05] MEDS: gabapentin 300 mg Capsule PO (16:29)
[2022-10-05] MEDS: midodrine 5 mg TABLET 2.5 MG PO (20:02)
[2022-10-05] MEDS: ipratropium-albuterol 3 mL Neb INHALATION (21:41)
[2022-10-05] MEDS: budesonide 0.5 mg/2 mL Neb INHALATION (21:41)
[2022-10-06] VITALS (12 sets, daily range): BP systolic 91–101; BP diastolic 48–63; PULSE 60–81; RESP 16–18; TEMP 36.4–36.5; O2SAT 93–98
[2022-10-06] MEDS: vancomycin 1,000 MG in sodium chloride 0.9% 250 ML 250 MG IV ×2 (00:21→13:00)
[2022-10-06] MEDS: ipratropium-albuterol 3 mL Neb INHALATION ×4 (02:16→20:31)
[2022-10-06 05:54] LABS: Basophils % 0.1 %; Hematocrit 27.9 % (42.0-52.0); Hemoglobin 8.4 g/dL (11.7-16.6); Lymphocytes # 0.2 10^3/uL (0.8-4.8); Lymphocytes % 2.2 %; Mean Corpuscular HGB Conc 30.1 g/dL (30.0-36.0); Mean Corpuscular Hemoglobin 27.4 pg (28.0-34.0); Mean Corpuscular Volume 90.9 fl (80-94); Mean Platelet Volume 10.1 fL (7.4-10.4); Monocytes # 0.9 10^3/uL (0.2-0.9); Monocytes % 8.5 %; Neutrophils # 8.49 10^3/uL (1.8-7.7); Neutrophils % 85.1 %; Nucleated Red Blood Cells % 0 %; Platelet Count 365 10^3/cmm (130-400); Red Blood Count 3.07 10^6/uL (4.1-5.3); Red Cell Distribution Width 16.8 % (12.1-15.1)
[2022-10-06 06:14] LABS: Alanine Aminotransferase 67 U/L (0-41); Albumin Level 2.1 g/dL (3.5-5.2); Alkaline Phosphatase 88 U/L (40-130); Anion Gap 14.5 (5-19); Aspartate Amino Transferase 36 U/L (0-40); Blood Urea Nitrogen 9 mg/dL (8-23); Calcium 8.3 mg/dL (8.5-10.5); Carbon Dioxide 24 mmol/L (22-29); Chloride 107 mmol/L (98-107); Globulin 2.4 g/dL (1.3-4.6); Glucose 128 mg/dL (65-115); Magnesium 1.6 mg/dL (1.7-2.3); Osmolality Calculated 294 mOsm/kg (285-295); Potassium 3.5 mmol/L (3.5-5.1); Sodium 142 mmol/L (136-145); Total Bilirubin 0.2 mg/dL (0.15-1.2); Total Protein 4.5 g/dL (6.6-8.7)
--- NOTE | 2022-10-06 06:46 | P.CONIM_ITS ---
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 After talking to the patient and reviewing his records-he has multiple admissions since March 2022 to [facility] [place] for COVID-19 pneumonia. Patient was initially admitted in June 2022 for COVID-19 pneumonia and was treated with dexamethasone and remdesivir and discharged home with 3 L nasal cannula. At that time he also had NSTEMI type I versus type II and underwent a left heart catheterization on 07/27/2022 for nonsustained V. tach and cath did not show any significant abnormalities and did not require coronary intervention. His hospitalization was complicated by Pseudomonas pneumonia which was treated with antibiotics. Later again he was admitted [facility] on 08/16/2022 was discharged to SNF facility on 09/28/2022. On 08/16/2022-patient was having worsening shortness of breath, fevers, chills and he was desaturating to 60s at his home on 3 L home oxygen. Gradually his oxygen requirements increased to high flow nasal cannula and was intubated on 08/16/2022. He was treated with IV antibiotics, baricitinib and IV dexamethasone, supportive care with long-acting inhalers and nebulization. CTA chest was negative for PE and patient was eventually extubated on 08/18/2022 to high flow nasal cannula. He received 10-day course of meropenem. Patient has 3/5 level of confusion for which she got a CT head and MRI on 08/29/2022 which showed acute ischemic changes left medial occipital lobe and left frontal lobe and medial right parietal lobe. There was no residual extremity weakness after this event. At some point he was even treated with nystatin swish for oral candidiasis. Patient was on high flow nasal cannula alternating with BiPAP for extended period of time and CT chest showed chronic interstitial lung disease. He then received 5-day course of IV steroids for possible ILD flare. Once his oxygen requirements came down to 3 to 4 L for few days he was discharged to alf home facility after 42 days of hospitalization on 09/28/2022. He was discharged on Symbicort, midodrine, pantoprazole, antitussives and DuoNeb's. 5 days after discharge he came to emergency room on 10/03/2022 as his saturations were in 70s on room air in care home. He had a positive COVID PCR test was given Paxlovid steroids and antibiotics and discharged back to the care home.? 2 days later on 10/05/2022-he was sent from care home again for fever spikes, hypoxic requiring 5 to 6 L by nasal cannula.? He denies any chest pain.? He has a history of DVT/PE dating back into the 90s and he is on anticoagulant. An echocardiogram 08/17/2022 at [facility]-showed LVEF 45 to 50%. Mildly decreased global LV systolic function, mild right ventricle, dilated right atrium, moderate TR, moderate AV insufficiency, moderate to severe AV stenosis with KIKI 1 cm?, mean gradient 21, moderate pulmonary hypertension with PASP 48 and mean PAP 31. And a follow-up echo on 09/09/2022 showed LVEF by visual estimation 50 to 55% and RVSP/PA SP 25 mmHg. CTA chest PE protocol report 08/17/2022-negative for PE, showed worsening bilateral pulmonary opacities with dense gradient appearance suspicious for changes of ARDS, bilateral upper lobe emphysema. The neck CT 08/29/2022 showed improving aeration of bilateral lung mcelroy. Persistent groundglass opacities and bronchiectasis likely reflecting chronic interstitial lung disease and superimposed emphysema. Chest x-ray in 09/18/2022 showed improving aeration of lung bases. Mild persistent density still seen. Pulmonary consult for bilateral lower lobe interstitial changes with persistent COVID PCR positive. I have seen the patient at bedside -He reported feeling well today He has reported being diagnosed with a Waldenstorm's Macroglobulinemia in 2016 and there currently 6-month maintenance chemo. Last chemo in March 2022. Currently is requiring 3 L nasal cannula No fever spikes since admission. MRSA nares negative. Blood cultures are still pending. Currently on vancomycin and meropenem. There is a concern of aspiration-especially his a CT head and MRI at [facility] admission showing acute ischemic changes and left medial occipital lobe, left frontal lobe and medial right parietal lobe. We will try to obtain barium swallow. Patient also reported that he smoked 1 pack/day for 50 years and quit in March 2022. Was not using any relapse previously but since hospital discharge she was given Symbicort. Review of Systems General: Reports: 10 or more systems reviewed and unremarkable except in HPI and below Medications/Allergies Home Medications Medication Instructions Recorded Confirmed Last Taken Type doxycycline hyclate 100 mg tablet 100 mg PO BID 7 days #14 tabs 10/03/22 10/05/22 Unknown Rx methylprednisolone 4 mg tablets in See Rx Instructions PO .COMPLEX 10/03/22 10/05/22 Unknown Rx a dose pack (Medrol (Shamir)) #21 ea nirmatrelvir 300 mg (150 mg See Rx Instructions PO .COMPLEX 10/03/22 10/05/22 Unknown Rx x2)-ritonavir 100 mg tablet,dose #30 ea pack(EUA) (Paxlovid) albuterol sulfate 2.5 mg/0.5 mL 2.5 mg inhalation BID PRN 10/05/22 10/05/22 Unknown History solution for nebulization shortness of breath or wheezing aspirin 81 mg chewable tablet 81 mg PO DAILY@0800 10/05/22 10/05/22 Unknown History atorvastatin 40 mg tablet 40 mg PO DAILY 10/05/22 10/05/22 Unknown History benzonatate 100 mg capsule 100 mg PO TID PRN Cough 10/05/22 10/05/22 Unknown History budesonide-formoterol HFA 160 2 puff inhalation BID 10/05/22 10/05/22 Unknown History mcg-4.5 mcg/actuation aerosol inhaler cetirizine 10 mg tablet 10 mg PO DAILY PRN Allergy Symptoms 10/05/22 10/05/22 Unknown History docusate sodium 100 mg capsule 100 mg PO DAILY 10/05/22 10/05/22 Unknown History (Colace) finasteride 5 mg tablet 5 mg PO DAILY 10/05/22 10/05/22 Unknown History gabapentin 300 mg capsule 300 mg PO BID 10/05/22 10/05/22 Unknown History guaifenesin 600 mg tablet, 600 mg PO BID 10/05/22 10/05/22 Unknown History extended release 12 hr inulin 5 gram/5.8 gram oral powder 5.8 g PO DAILY PRN Fiber 10/05/22 10/05/22 Unknown History ipratropium 0.5 mg-albuterol 3 mg 3 ml inhalation Q6H PRN Shortness 10/05/22 10/05/22 Unknown History (2.5 mg base)/3 mL nebulization Of Breath soln midodrine 2.5 mg tablet 2.5 mg PO TID 10/05/22 10/05/22 Unknown History pantoprazole 40 mg tablet,delayed 40 mg PO DAILY 10/05/22 10/05/22 Unknown History release polyethylene glycol 3350 17 17 g PO DAILY 10/05/22 10/05/22 Unknown History gram/dose oral powder (Miralax) rivaroxaban 20 mg tablet (Xarelto) 20 mg PO DAILY 10/05/22 10/05/22 Unknown History Allergies Allergy/AdvReac Type Severity Reaction Status Date / Time No Known Allergies Allergy Unverified 10/05/22 12:08 Current Medications Generic Name Dose Route Start Last Admin Trade Name Freq PRN Reason Stop Dose Admin Albuterol/Ipratropium 3 ml 10/05/22 20:00 10/06/22 02:16 Ipratropium-Albuterol 3 Ml Neb INHALATION 3 ml Q6H.RESP MICHELLE Administration Budesonide 0.5 mg 10/05/22 20:00 10/05/22 21:41 Budesonide 0.5 Mg/2 Ml Neb INHALATION 0.5 mg BID.RESPIRATORY MICHELLE Administration Gabapentin 300 mg 10/05/22 18:00 10/05/22 16:29 Gabapentin 300 Mg Capsule PO 300 mg BID MICHELLE Administration Vancomycin HCl 1,000 mg/ 250 mls @ 250 mls/hr 10/06/22 00:00 10/06/22 01:45 Sodium Chloride IV Infused Q12H MICHELLE Infusion Meropenem 2,000 mg/ Sodium 100 mls @ 200 mls/hr 10/05/22 16:30 10/06/22 00:25 Chloride IV Infused Q8H MICHELLE Infusion Midodrine 2.5 mg 10/05/22 21:00 10/05/22 20:02 Midodrine 5 Mg Tablet PO 2.5 mg TID MICHELLE Administration PFSH Acute PFSH: Medical History BPH (benign prostatic hyperplasia) Diastolic CHF DVT (deep venous thrombosis) GERD (gastroesophageal reflux disease) Hyperlipidemia Hypotension Neuropathy Obstructive sleep apnea Pneumonia due to COVID-19 virus Waldenstroms macroglobulinemia Surgical History History of tonsillectomy Family History Other CAD (coronary artery disease) Social History Smoking and tobacco status: former smoker Alcohol intake: never Vitals/I&O/Wt Last Vital Signs Temp 97.5 F L 10/06/22 03:40 Pulse 61 10/06/22 05:26 Resp 17 10/06/22 03:40 BP 101/48 10/06/22 03:40 Pulse Ox 95 10/06/22 03:40 O2 Del Method 10/06/22 03:40 O2 Flow Rate 3 10/06/22 03:40 10/05/22 10/05/22 10/06/22 14:59 22:59 06:59 Intake Total 1300 / 1300 490 / 1790 350 / 2140 Output Total 350 / 350 200 / 550 Balance 1300 / 1300 140 / 1440 150 / 1590 Weight last 48 hrs Weight 150 lb Physical Exam Narrative: General: alert, NAD HEENT: conj clear, EOMI, PERRL, mmm, Neck: supple, no meningismus Heme: no cervical LAP Pulmonary: CTAB, no wheezing, rhonchi, crackles Cardiovascular: rrr, nl s1s2, no mrg Abdomen: soft, nt, nd, no r/g, bs+ Extremities: pulses +, no edema, no c/c : no CVA tenderness Skin: intact, no rash MSK: no back or neck pain Neurologic: grossly intact Data : 10/06/22 05:46 10/06/22 05:46 Other Labs: Radiology Impressions Chest X-Ray 10/05/22 08:13 Impression: 1. No change in bilateral lower lobe opacities. 2. Cardiomegaly. Chest CTA 10/05/22 08:27 IMPRESSION: 1. No segmental pulmonary embolism or thoracic aortic dissection. No thoracic aortic aneurysm. 2. Bilateral lower lobe and inferior lingula more confluent ground-glass opacities are seen with some small regions of patchy consolidation in bilateral lower lobe posterior basilar regions. These findings may represent post acute covert syndrome or multifocal pneumonia, although lung parenchymal leukemic involvement cannot be excluded. Recommend correlation with clinical findings and follow-up. 3. Multiple nodular 4-5 mm ground-glass opacities are seen in bilateral apical regions. Right upper lobe 3-5 mm 3 nodules are also seen (series 4, images 14 and 15). Recommend short interval follow-up in 3-6 months. 4. Moderate to severe coronary arterial atherosclerotic vascular calcifications. COMMENTS: Consistent with the [place] [employer]'s Incidental Findings Committee white paper (J Am Josefina Radiol 2015): In patients aged 35 years and older with an incidental thyroid nodule equal to or greater than 1.[address], MRI or extrathyroidal US, further evaluation with dedicated thyroid US is recommended for patients with normal life expectancy and without comorbidities. For smaller nodules without suspicious features, no further evaluation or follow up is recommended. Laboratory Results WBC 10.0 10^3/uL (4.0-10.0) 10/06/22 05:46 RBC 3.07 10^6/uL (4.1-5.3) L 10/06/22 05:46 Hgb 8.4 g/dL (11.7-16.6) L D 10/06/22 05:46 Hct 27.9 % (42.0-52.0) L D 10/06/22 05:46 MCV 90.9 fl (80-94) 10/06/22 05:46 MCH 27.4 pg (28.0-34.0) L 10/06/22 05:46 MCHC 30.1 g/dL (30.0-36.0) 10/06/22 05:46 RDW 16.8 % (12.1-15.1) H 10/06/22 05:46 Plt Count 365 10^3/cmm (130-400) 10/06/22 05:46 MPV 10.1 fL (7.4-10.4) 10/06/22 05:46 Neut % (Auto) 85.1 % 10/06/22 05:46 Lymph % (Auto) 2.2 % 10/06/22 05:46 [place] % (Auto) 8.5 % 10/06/22 05:46 Eos % (Auto) 0.0 % 10/06/22 05:46 Baso % (Auto) 0.1 % 10/06/22 05:46 Neut # (Auto) 8.49 10^3/uL (1.8-7.7) H 10/06/22 05:46 Lymph # (Auto) 0.2 10^3/uL (0.8-4.8) L 10/06/22 05:46 [place] # (Auto) 0.9 10^3/uL (0.2-0.9) 10/06/22 05:46 Eos # (Auto) 0.0 10^3/uL (0.0-0.8) 10/06/22 05:46 Baso # (Auto) 0.0 10^3/uL (0.0-0.1) 10/06/22 05:46 Nucleated RBC % (auto) 0 % 10/06/22 05:46 Nucleated RBCs # 0.0 /100WBC 10/06/22 05:46 Sodium 142 mmol/L (136-145) 10/06/22 05:46 Potassium 3.5 mmol/L (3.5-5.1) 10/06/22 05:46 Chloride 107 mmol/L (98-107) 10/06/22 05:46 Carbon Dioxide 24 mmol/L (22-29) 10/06/22 05:46 Anion Gap 14.5 (5-19) 10/06/22 05:46 BUN 9 mg/dL (8-23) 10/06/22 05:46 Creatinine 0.4 mg/dL (0.7-1.2) L 10/06/22 05:46 GFR Calculation Not Reportable 10/06/22 05:46 Glucose 128 mg/dL (65-115) H 10/06/22 05:46 Calculated Osmolality 294 mOsm/kg (285-295) 10/06/22 05:46 Lactic Acid 3.3 mmol/L (0.5-2.2) H 10/05/22 09:03 Lactic Acid (Sepsis) 2.1 mmol/L (0.5-2.2) 10/05/22 11:13 Calcium 8.3 mg/dL (8.5-10.5) L 10/06/22 05:46 Magnesium 1.6 mg/dL (1.7-2.3) L 10/06/22 05:46 Iron 35 ug/dL (59-158) L 10/06/22 05:46 TIBC 138 mcg/dl 10/06/22 05:46 % Saturation 25.3 % (20-50) 10/06/22 05:46 Unsat Iron Binding 103 ug/dL (112-347) L 10/06/22 05:46 Ferritin 1959 ng/mL (30-400) H 10/06/22 05:46 Total Bilirubin 0.2 mg/dL (0.15-1.2) 10/06/22 05:46 Direct Bilirubin 0.20 mg/dL (0.00-0.30) 10/05/22 09:03 AST 36 U/L (0-40) 10/06/22 05:46 ALT 67 U/L (0-41) H 10/06/22 05:46 Alkaline Phosphatase 88 U/L (40-130) 10/06/22 05:46 C-Reactive Protein 60.5 mg/L (0.0-4.9) H 10/05/22 09:03 Total Protein 4.5 g/dL (6.6-8.7) L D 10/06/22 05:46 Albumin 2.1 g/dL (3.5-5.2) L 10/06/22 05:46 Globulin 2.4 g/dL (1.3-4.6) 10/06/22 05:46 Procalcitonin 0.15 ng/mL (0-0.5) 10/05/22 09:03 Urine Color Yellow (Yellow) 10/05/22 11:35 Urine Appearance Clear (CLEAR) 10/05/22 11:35 Urine pH 7 (5-7) 10/05/22 11:35 Ur Specific [place] 1.010 (1.005-1.030) 10/05/22 11:35 Urine Protein Neg (Negative) 10/05/22 11:35 Urine Glucose (UA) Norm (Normal) 10/05/22 11:35 Urine Ketones Negative (Negative) 10/05/22 11:35 Urine Blood Neg (Negative) 10/05/22 11:35 Urine Nitrate Negative (Negative) 10/05/22 11:35 Urine Bilirubin Neg (Negative) 10/05/22 11:35 Urine Urobilinogen 4 mg/dL (Negative) H 10/05/22 11:35 Ur Leukocyte Esterase Negative (Negative) 10/05/22 11:35 Influenza Type A Ag negative (Negative) 10/05/22 09:03 Influenza Type B Ag negative (Negative) 10/05/22 09:03 Micro: Microbiology 10/05/22 09:08 Blood Culture - Preliminary Blood SPECIMEN COLLECTED 10/05/22 09:03 Blood Culture - Preliminary Blood SPECIMEN COLLECTED A&P Assessment and plan (1) DVT (deep venous thrombosis): (2) Waldenstroms macroglobulinemia: (3) Pneumonia: (4) Pneumonia due to COVID-19 virus: (5) Acute exacerbation of chronic obstructive airways disease: (6) Pulmonary emphysema with fibrosis of lung: Plan #Bilateral lower lobe interstitial changes on CT scan-likely COVID residual interstitial changes vs emphysema with pulmonary fibrosis #[id number] smoking history quit March 2022 -Patient initially tested positive for COVID in June 2022 and Pseudomonas pneumonia followed by another 42-day hospitalization for acute hypoxic respiratory failure secondary to worsening COVID-19 pneumonia requiring 3-day intubation followed by dependence on high flow nasal cannula/BiPAP for several days -He was discharged recently with 3 L nasal cannula to alf home facility -I believe bilateral lower lobe changes are secondary to post COVID inflammation or may be chronic changes secondary to COPD. We do not have CT scans prior to COVID. Very rarely Waldenstorm's Macroglobulinemia will cause pulmonary involvement-even if pulmonary involvement is present-treatment is to treat underlying Waldenstorm's Macroglobulinemia -Recommended to continue supplemental oxygen as needed to keep saturations > 88% -With multiple ischemic infarcts seen on recent CT/MRI brain in August 28 week- recommended barium swallow/speech evaluation -Patient will benefit from pulmonary rehabilitation -He can be discharged with Symbicort 2 puffs twice daily and DuoNeb nebulization as needed -I will follow-up with patient in pulmonary clinic as outpatient. We can do pulmonary function test as outpatient #Fever spikes on admission -Concern is patient has a port for his chemotherapy-if blood cultures are posit rai we may have to DC port -Another concern is if patient has aspirated given his multiple ischemic infarcts on CT -So far cultures negative-awaiting for final blood cultures -Until then we will continue vancomycin/meropenem #Past medical history of DVT since -Patient is currently on Xarelto 20 Mg daily Recommendations conveyed to hospitalist taking care of the patient We will plan PFTs/barium swallow as outpatient Consult Attestations Medical Necessity Statement: Deferred to hospitalist Time Spent in Patient Care: Greater than 35 minutes (>than 50% of time spent in counselling and/or direct pt care on unit) . Coding Level of Care Code New Pt Acute Wharf Operator for Chg Fwd Patient Type New History Comprehensive Exam Comprehensive Medical Decision Making High Complexity Diagnoses DVT (deep venous thrombosis) I82.409 Waldenstroms macroglobulinemia C88.0 Pneumonia J18.9 Pneumonia due to COVID-19 virus U07.1; J12.82 Acute exacerbation of chronic obstructive airways disease J44.1 Pulmonary emphysema with fibrosis of lung J43.9; J84.10 Time Spent (min) 45
[2022-10-06] MEDS: gabapentin 300 mg Capsule PO ×2 (08:50→17:45)
[2022-10-06] MEDS: finasteride 5 mg Tablet PO (08:51)
[2022-10-06] MEDS: aspirin 81 mg Chew Tablet PO (08:51)
[2022-10-06] MEDS: midodrine 5 mg TABLET 2.5 MG PO ×3 (08:52→20:47)
[2022-10-06] MEDS: pantoprazole DR 40 mg Tablet PO (08:53)
[2022-10-06] MEDS: meropenem 2,000 MG in sodium chloride 0.9% (100 ml) 100 ML 200 MG IV (08:53)
[2022-10-06] MEDS: atorvastatin 40 mg Tablet PO (08:53)
[2022-10-06] MEDS: magnesium sulfate premix 2 GM/50 ML PIGGYBACK IV (08:55)
--- NOTE | 2022-10-06 09:20 | PM.PN ---
Subjective Subjective: Robbie reports he is feeling okay today. No fevers through the night. Occasional cough. No nausea. Denies any choking when he eats. Medications: Reviewed: Yes Vitals/I&O/Wt Last Vital Signs Temp 97.5 F L 10/06/22 08:00 Pulse 60 10/06/22 08:00 Resp 16 10/06/22 08:00 BP 96/56 10/06/22 08:00 Pulse Ox 94 10/06/22 08:00 O2 Del Method 10/06/22 08:00 O2 Flow Rate 3 10/06/22 03:40 10/05/22 10/06/22 10/06/22 22:59 06:59 14:59 Intake Total 490 / 1790 350 / 2140 Output Total 350 / 350 200 / 550 Balance 140 / 1440 150 / 1590 Weight last 48 hrs Weight 68.039 kg Physical Exam Narrative: General exam is a white male, no distress, now on 3 L of oxygen Neck is supple no lymphadenopathy or thyromegaly Cardiovascular regular rate and rhythm without murmur, no S3 or S4 Lungs clear but with some diminished breath sounds at the bases Abdomen is soft with positive bowel sounds. No obvious organomegaly Extremities no cyanosis clubbing or edema, cap refill brisk Skin no rash Data : 10/06/22 05:46 10/06/22 05:46 Micro: Microbiology 10/05/22 09:08 Blood Culture - Preliminary Blood NEGATIVE TO DATE 10/05/22 09:03 Blood Culture - Preliminary Blood NEGATIVE TO DATE 10/05/22 15:48 Bacterial Antigens - Final Urine,Voided A&P Assessment and plan (1) Pneumonia: I believe the patient has superimposed bacterial pneumonia. Procalcitonin is not elevated, but he is immunocompromised. He recently had a positive COVID PCR on July 22. COVID PCR here is + October 03. I do not think these are separate infections. I do not see a reason to continue steroid use, or prescribe antiviral at this time. Note that he recently received some doses of Paxlovid and dexamethasone. Broad-spectrum antibiotics will be initiated, including vancomycin and meropenem. Bacterial antigens negative. Sputum culture pending. Blood culture negative to date. MRSA PCR pending Bacteremia is not excluded. Await cultures which were drawn. Note that he has a port. At this point considering positive COVID PCR l on July 22 I do not think he has to be put in COVID isolation. I do think reverse isolation is appropriate considering his past history of malignancy. He has now tapered down to 3 L of oxygen Secondary to his recurrent hospitalizations, complicated course, development of chronic lung disease post COVID it will be beneficial for pulmonary to evaluate him to try to determine a treatment plan forward to reduce hospitalizations in the future. Pulmonary is in the process of evaluating him, and I have discussed this case with pulmonary in detail. Continue pulmonary toilet (2) Pneumonia due to COVID-19 virus: Past history of pneumonia secondary Covid 19. Last PCR + July 22 at outside facility. Rapid was negative yesterday. COVID PCR positive here on October 03. He did receive initiation of Paxil Lucius, and dexamethasone on the sixth. At this point I do not believe he has another recurrent infection with COVID on October 03, when he had the infection July 22. Therefore steroids were not continued. No further antiviral was prescribed. Await records Barium swallow (3) Waldenstroms macroglobulinemia: Last chemotherapy in March (4) DVT (deep venous thrombosis): Distant history of DVT No pulmonary embolism on CTA Continue Xarelto (5) Diastolic CHF: No evidence of heart failure currently Does not need large amounts of IV fluids with his chronic lung disease. IV fluids were discontinued He appears well compensated today. Plan Anemia. Check iron studies History of hypotension. Continue midodrine Multiple other medical problems as outlined in past medical history Full code Xarelto will suffice for DVT prophylaxis Attestations Medical Necessity Statement*: Needs continued hospitalization for IV antibiotics secondary to pneumonia Coding Level of Care Code Acute Test Engineering Manager for [facility] Diagnoses Pneumonia J18.9 Pneumonia due to COVID-19 virus U07.1; J12.82 Waldenstroms macroglobulinemia C88.0 DVT (deep venous thrombosis) I82.409 Diastolic CHF I50.30
[2022-10-06] MEDS: budesonide 0.5 mg/2 mL Neb INHALATION ×2 (09:42→20:31)
[2022-10-06 10:27] LABS: Iron 35 ug/dL (59-158); Percent Saturation 25.3 % (20-50); Total Iron Binding Capacity 138 mcg/dl; Unsaturated Iron Binding 103 ug/dL (112-347)
[2022-10-06 10:39] LABS: Ferritin 1959 ng/mL (30-400)
[2022-10-06] MEDS: meropenem 1,000 MG in sodium chloride 0.9% (plus) 50 ML 100 MG IV ×2 (17:03→23:43)
[2022-10-06] MEDS: rivaroxaban 10 mg Tablet 20 MG PO (17:44)
[2022-10-06 22:33] LABS: Vancomycin Trough 14.4 ug/mL (10-15)
[2022-10-07] VITALS (14 sets, daily range): BP systolic 96–113; BP diastolic 62–72; PULSE 56–101; RESP 14–18; TEMP 36.4–36.6; O2SAT 92–98
--- NOTE | 2022-10-07 | FL_ITS ---
WS: [id number] Modified barium swallow, 10/07/2022 Clinical Data: Oral dysphagia Comparison: None. Fluoroscopy time: 3min [id number] # of spot films: 1 Findings: The patient had difficulty initiating swallowing. There was premature spillage. There was occasional penetration but no aspiration of contents. There is minimal residual in the vallecula and piriform si nuses which cleared with multiple swallows. The barium tablet propelled normally from the oral cavity into the pharynx and there was delay in the midesophagus. Swallowing liquids assisted the barium tab let passage into the stomach. FL/FL barium swallow modifd [id number] Impression: 1. Difficulty in initiating swallowing. 2. Premature spillage with occasional penetration but no aspiration of contents . 3. Residual in the vallecula and piriform sinuses which cleared with swallowing . 4. Liquid assistance moved the barium tablet from the mid esophagus into the s tomach.
[2022-10-07] MEDS: vancomycin 1,000 MG in sodium chloride 0.9% 250 ML 250 MG IV ×2 (00:24→11:31)
[2022-10-07] MEDS: ipratropium-albuterol 3 mL Neb INHALATION ×3 (02:41→19:23)
[2022-10-07 06:21] LABS: Alanine Aminotransferase 96 U/L (0-41); Albumin Level 2.3 g/dL (3.5-5.2); Alkaline Phosphatase 87 U/L (40-130); Anion Gap 10.6 (5-19); Aspartate Amino Transferase 61 U/L (0-40); Blood Urea Nitrogen 9 mg/dL (8-23); Calcium 8.4 mg/dL (8.5-10.5); Carbon Dioxide 27 mmol/L (22-29); Chloride 107 mmol/L (98-107); Globulin 2.1 g/dL (1.3-4.6); Glucose 109 mg/dL (65-115); Osmolality Calculated 291 mOsm/kg (285-295); Potassium 3.6 mmol/L (3.5-5.1); Sodium 141 mmol/L (136-145); Total Bilirubin 0.2 mg/dL (0.15-1.2); Total Protein 4.4 g/dL (6.6-8.7)
[2022-10-07 07:33] LABS: Magnesium 1.9 mg/dL (1.7-2.3)
--- NOTE | 2022-10-07 08:36 | PM.PN ---
Subjective Subjective: No issues overnight. Still feels significantly short of breath when he gets up and moves. Oxygen saturation drops quickly in the to the 70s although he can be maintained on 3 L when at rest. No chest discomfort. Cough not significantly productive. Medications: Reviewed: Yes Vitals/I&O/Wt Last Vital Signs Temp 97.7 F 10/07/22 07:43 Pulse 66 10/07/22 08:00 Resp 16 10/07/22 08:00 BP 113/72 10/07/22 07:43 Pulse Ox 93 10/07/22 08:00 O2 Del Method 10/07/22 08:00 O2 Flow Rate 3 10/07/22 08:00 10/06/22 10/07/22 10/07/22 22:59 06:59 14:59 Intake Total 450 / 1290 300 / 1590 Output Total 125 / 125 Balance 325 / 1165 300 / 1465 Physical Exam Narrative: General exam is a white male, tachypneic standing, on 3 L oxygen currently with sat of 85% Neck is supple no lymphadenopathy or thyromegaly Cardiovascular regular rate and rhythm without murmur, no S3 or S4 Lungs clear but with some diminished breath sounds at the bases Abdomen is soft with positive bowel sounds. No obvious organomegaly Extremities no cyanosis clubbing or edema, cap refill brisk Skin no rash Data : 10/06/22 05:46 10/07/22 05:54 Micro: Microbiology 10/05/22 15:43 MRSA Culture - Final Nose 10/05/22 09:08 Blood Culture - Preliminary Blood NEGATIVE TO DATE 10/05/22 09:03 Blood Culture - Preliminary Blood NEGATIVE TO DATE 10/05/22 15:48 Bacterial Antigens - Final Urine,Voided A&P Assessment and plan (1) Pneumonia: I believe the patient has superimposed bacterial pneumonia. Procalcitonin is not elevated, but he is immunocompromised. He recently had a positive COVID PCR on July 22. COVID PCR here is + October 03. I do not think these are separate infections. I do not see a reason to continue steroid use, or prescribe antiviral at this time. Note that he recently received some doses of Paxlovid and dexamethasone. Broad-spectrum antibiotics will be initiated, including vancomycin and meropenem. Continue these currently. Bacterial antigens negative. Sputum culture pending. Blood culture negative to date. MRSA PCR negative Bacteremia is not excluded. Await cultures which were drawn. Note that he has a port. Blood cultures negative to date At this point considering positive COVID PCR l on July 22 I do not think he has to be put in COVID isolation. I do think reverse isolation is appropriate considering his past history of malignancy. He has now tapered down to 3 L of oxygen Secondary to his recurrent hospitalizations, complicated course, development of chronic lung disease post COVID it will be beneficial for pulmonary to evaluate him to try to determine a treatment plan forward to reduce hospitalizations in the future. Appreciate pulmonary consultation Continue pulmonary toilet Continue IV antibiotics today. Probable discharge tomorrow. Will need home oxygen evaluation prior to discharge, as well as home health. (2) Pneumonia due to COVID-19 virus: Past history of pneumonia secondary Covid 19. Last PCR + July 22 at outside facility. Rapid was negative yesterday. COVID PCR positive here on October 03. He did receive initiation of Paxlovid and dexamethasone on the sixth. He also received full course of baricitinib and dexa within the last 8 weeks At this point I do not believe he has another recurrent infection with COVID on October 03, when he had the infection July 22. Therefore steroids were not continued. No further antiviral was prescribed. Old records reviewed Await barium swallow (3) Waldenstroms macroglobulinemia: Last chemotherapy in March (4) DVT (deep venous thrombosis): Distant history of DVT No pulmonary embolism on CTA Continue Xarelto (5) Diastolic CHF: No evidence of heart failure currently Does not need large amounts of IV fluids with his chronic lung disease. IV fluids were discontinued He appears well compensated today. Plan Anemia. No evidence of iron deficiency on testing History of hypotension. Continue midodrine Multiple other medical problems as outlined in past medical history Full code Xarelto will suffice for DVT prophylaxis Attestations Medical Necessity Statement*: Needs continued hospitalization for IV antibiotics secondary to pneumonia Coding Level of Care Code Acute Student Support Counselor for [facility] Diagnoses Pneumonia J18.9 Pneumonia due to COVID-19 virus U07.1; J12.82 Waldenstroms macroglobulinemia C88.0 DVT (deep venous thrombosis) I82.409 Diastolic CHF I50.30
[2022-10-07] MEDS: gabapentin 300 mg Capsule PO ×2 (09:44→18:15)
[2022-10-07] MEDS: pantoprazole DR 40 mg Tablet PO (09:45)
[2022-10-07] MEDS: finasteride 5 mg Tablet PO (09:45)
[2022-10-07] MEDS: atorvastatin 40 mg Tablet PO (09:45)
[2022-10-07] MEDS: aspirin 81 mg Chew Tablet PO (09:45)
[2022-10-07] MEDS: midodrine 5 mg TABLET 2.5 MG PO ×3 (09:47→20:37)
[2022-10-07] MEDS: meropenem 1,000 MG in sodium chloride 0.9% (plus) 50 ML 100 MG IV ×2 (13:42→20:34)
[2022-10-07 17:29] LABS: Basophils % 0.4 %; Eosinophils # 0.1 10^3/uL (0.0-0.8); Hematocrit 29.8 % (42.0-52.0); Hemoglobin 9.4 g/dL (11.7-16.6); Lymphocytes # 0.3 10^3/uL (0.8-4.8); Mean Corpuscular HGB Conc 31.5 g/dL (30.0-36.0); Mean Corpuscular Volume 88.7 fl (80-94); Mean Platelet Volume 10.1 fL (7.4-10.4); Monocytes # 0.8 10^3/uL (0.2-0.9); Monocytes % 7.4 %; Neutrophils # 9.14 10^3/uL (1.8-7.7); Neutrophils % 81.5 %; Nucleated Red Blood Cells % 0.3 %; Platelet Count 423 10^3/cmm (130-400); Red Blood Count 3.36 10^6/uL (4.1-5.3); Red Cell Distribution Width 17.1 % (12.1-15.1); White Blood Count 11.2 10^3/uL (4.0-10.0)
[2022-10-07 17:56] LABS: Slide Review Slide Review Perform
[2022-10-07] MEDS: rivaroxaban 10 mg Tablet 20 MG PO (18:15)
[2022-10-07] MEDS: budesonide 0.5 mg/2 mL Neb INHALATION (19:23)
[2022-10-08] VITALS (9 sets, daily range): BP systolic 101–144; BP diastolic 61–88; PULSE 62–92; RESP 16–18; TEMP 36.4–36.9; O2SAT 87–99
[2022-10-08] MEDS: vancomycin 1,000 MG in sodium chloride 0.9% 250 ML 250 MG IV (00:32)
[2022-10-08] MEDS: ipratropium-albuterol 3 mL Neb INHALATION ×2 (02:01→10:13)
[2022-10-08] MEDS: meropenem 1,000 MG in sodium chloride 0.9% (plus) 50 ML 100 MG IV (04:05)
[2022-10-08] MEDS: finasteride 5 mg Tablet PO (08:08)
[2022-10-08] MEDS: gabapentin 300 mg Capsule PO (08:08)
[2022-10-08] MEDS: midodrine 5 mg TABLET 2.5 MG PO (08:09)
[2022-10-08] MEDS: atorvastatin 40 mg Tablet PO (08:09)
[2022-10-08] MEDS: aspirin 81 mg Chew Tablet PO (08:09)
[2022-10-08] MEDS: pantoprazole DR 40 mg Tablet PO (08:09)
--- NOTE | 2022-10-08 09:10 | P.DS_ITS ---
Discharge Providers Date of Admission: 10/05/22 11:57 Date of Discharge: October 08, 2022 Attending Provider at Admission: Yohan Krause MD Attending Provider at Discharge: Yohan Krause MD Primary Care Provider: Rubia Smart MD Diagnoses at Discharge Discharge Diagnosis (1) Pneumonia: Status: Acute (2) Pneumonia due to COVID-19 virus: Status: Acute (3) Waldenstroms macroglobulinemia: Status: Acute (4) DVT (deep venous thrombosis): Status: Acute (5) Diastolic CHF: Status: Acute Reason for Visit Reason for Visit: SOB, Covid, fever Hospital Course Hospital Course Robbie is a 71-year-old white male who presented to the hospital with shortness of breath, and fever. He had had multiple recurrent hospitalizations related to development of COVID in March. COVID PCR was positive on October 03, but he had had COVID within the last 7 weeks at an outside hospital. This was thought a persistently positive PCR. He was started on broad-spectrum antibiotics for pneumonia. Pulmonary consultation was obtained. With this treatment as well as pulmonary toilet oxygen requirement went down to 3 L which was improved from his baseline discharged to a nursing facility a week before. He did not develop any other fevers. Cultures remain negative during his hospital stay. Speech saw him and he had a modified swallow test which demonstrated some concern for aspiration. He was placed on a mechanical soft diet and nectar thick liquids. He will follow-up with pulmonary, as well as his primary care provider. He will finish 7 days of Levaquin. He is to return for any concerns. Low-dose Lasix was added secondary to his history of diastolic heart failure. Bacterial ant igens, MRSA PCR was also performed and negative during his hospital stay. CTA was performed which demonstrated no pulmonary embolism, infiltrates in the lower lobes with groundglass attenuation. Physical Exam Narrative: General exam no distress Neck is supple no lymphadenopathy thyromegaly Cardiovascular regular rate and rhythm, no murmur Lungs clear but with diminished breath sounds at the bases Abdomen is soft with positive bowel sounds Extremities no cyanosis clubbing or edema Skin no rash Discharge Data Studies Completed and Pending Completed Studies During Hospitalization Category Date Time Status CT angio chest PE protcl [id number] Stat Cat Scan 10/05/22 08:27 Completed [place] barium swallow modifd [id number] Routine Exams 10/07/22 Completed XR chest 1V portable [id number] Stat Exams 10/05/22 08:13 Completed Pending at discharge Category Date Time Status Blood Culture Stat Lab 10/05/22 09:08 Results Sputum Culture and Gram Stain Routine Lab 10/05/22 15:22 Uncollected Radiology Impressions Chest X-Ray 10/05/22 08:13 Impression: 1. No change in bilateral lower lobe opacities. 2. Cardiomegaly. Chest CTA 10/05/22 08:27 IMPRESSION: 1. No segmental pulmonary embolism or thoracic aortic dissection. No thoracic aortic aneurysm. 2. Bilateral lower lobe and inferior lingula more confluent ground-glass opacities are seen with some small regions of patchy consolidation in bilateral lower lobe posterior basilar regions. These findings may represent post acute covert syndrome or multifocal pneumonia, although lung parenchymal leukemic involvement cannot be excluded. Recommend correlation with clinical findings and follow-up. 3. Multiple nodular 4-5 mm ground-glass opacities are seen in bilateral apical regions. Right upper lobe 3-5 mm 3 nodules are also seen (series 4, images 14 and 15). Recommend short interval follow-up in 3-6 months. 4. Moderate to severe coronary arterial atherosclerotic vascular calcifications. COMMENTS: Consistent with the [employer]'s Incidental Findings Committee white paper (J Am Josefina Radiol 2015): In patients aged 35 years and older with an incidental thyroid nodule equal to or greater than 1.[address], MRI or extrathyroidal US, further evaluation with dedicated thyroid US is recommended for patients with normal life expectancy and without comorbidities. For smaller nodules without suspicious features, no further evaluation or follow up is recommended. Modified Barium Swallow 10/07/22 00:00 Impression: 1. Difficulty in initiating swallowing. 2. Premature spillage with occasional penetration but no aspiration of contents. 3. Residual in the vallecula and piriform sinuses which cleared with swallowing. 4. Liquid assistance moved the barium tablet from the mid esophagus into the stomach. Laboratory Results WBC 11.2 10^3/uL (4.0-10.0) H 10/07/22 17:00 Corrected WBC Cancelled 10/07/22 05:54 RBC 3.36 10^6/uL (4.1-5.3) L 10/07/22 17:00 Hgb 9.4 g/dL (11.7-16.6) L 10/07/22 17:00 Hct 29.8 % (42.0-52.0) L 10/07/22 17:00 MCV 88.7 fl (80-94) 10/07/22 17:00 MCH 28.0 pg (28.0-34.0) 10/07/22 17:00 MCHC 31.5 g/dL (30.0-36.0) 10/07/22 17:00 RDW 17.1 % (12.1-15.1) H 10/07/22 17:00 Plt Count 423 10^3/cmm (130-400) H 10/07/22 17:00 MPV 10.1 fL (7.4-10.4) 10/07/22 17:00 Gran % Cancelled 10/07/22 05:54 Neut % (Auto) 81.5 % 10/07/22 17:00 Lymph % (Auto) 3.0 % 10/07/22 17:00 Adams % (Auto) 7.4 % 10/07/22 17:00 Eos % (Auto) 1.0 % 10/07/22 17:00 Baso % (Auto) 0.4 % 10/07/22 17:00 Neut # (Auto) 9.14 10^3/uL (1.8-7.7) H 10/07/22 17:00 Lymph # (Auto) 0.3 10^3/uL (0.8-4.8) L 10/07/22 17:00 Adams # (Auto) 0.8 10^3/uL (0.2-0.9) 10/07/22 17:00 Eos # (Auto) 0.1 10^3/uL (0.0-0.8) 10/07/22 17:00 Baso # (Auto) 0.0 10^3/uL (0.0-0.1) 10/07/22 17:00 Absolute Gran (auto) Cancelled 10/07/22 05:54 Nucleated RBC % (auto) 0.3 % 10/07/22 17:00 Nucleated RBCs # 0.0 /100WBC 10/07/22 17:00 Sodium 141 mmol/L (136-145) 10/07/22 05:54 Potassium 3.6 mmol/L (3.5-5.1) 10/07/22 05:54 Chloride 107 mmol/L (98-107) 10/07/22 05:54 Carbon Dioxide 27 mmol/L (22-29) 10/07/22 05:54 Anion Gap 10.6 (5-19) 10/07/22 05:54 BUN 9 mg/dL (8-23) 10/07/22 05:54 Creatinine 0.3 mg/dL (0.7-1.2) L 10/07/22 05:54 GFR Calculation Not Reportable 10/07/22 05:54 Glucose 109 mg/dL (65-115) 10/07/22 05:54 Calculated Osmolality 291 mOsm/kg (285-295) 10/07/22 05:54 Lactic Acid 3.3 mmol/L (0.5-2.2) H 10/05/22 09:03 Lactic Acid (Sepsis) 2.1 mmol/L (0.5-2.2) 10/05/22 11:13 Calcium 8.4 mg/dL (8.5-10.5) L 10/07/22 05:54 Magnesium 1.9 mg/dL (1.7-2.3) 10/07/22 05:54 Iron 35 ug/dL (59-158) L 10/06/22 05:46 TIBC 138 mcg/dl 10/06/22 05:46 % Saturation 25.3 % (20-50) 10/06/22 05:46 Unsat Iron Binding 103 ug/dL (112-347) L 10/06/22 05:46 Ferritin 1959 ng/mL (30-400) H 10/06/22 05:46 Total Bilirubin 0.2 mg/dL (0.15-1.2) 10/07/22 05:54 Direct Bilirubin 0.20 mg/dL (0.00-0.30) 10/05/22 09:03 AST 61 U/L (0-40) H 10/07/22 05:54 ALT 96 U/L (0-41) H 10/07/22 05:54 Alkaline Phosphatase 87 U/L (40-130) 10/07/22 05:54 C-Reactive Protein 60.5 mg/L (0.0-4.9) H 10/05/22 09:03 Total Protein 4.4 g/dL (6.6-8.7) L 10/07/22 05:54 Albumin 2.3 g/dL (3.5-5.2) L 10/07/22 05:54 Globulin 2.1 g/dL (1.3-4.6) 10/07/22 05:54 Procalcitonin 0.15 ng/mL (0-0.5) 10/05/22 09:03 Urine Color Yellow (Yellow) 10/05/22 11:35 Urine Appearance Clear (CLEAR) 10/05/22 11:35 Urine pH 7 (5-7) 10/05/22 11:35 Ur Specific [place] 1.010 (1.005-1.030) 10/05/22 11:35 Urine Protein Neg (Negative) 10/05/22 11:35 Urine Glucose (UA) Norm (Normal) 10/05/22 11:35 Urine Ketones Negative (Negative) 10/05/22 11:35 Urine Blood Neg (Negative) 10/05/22 11:35 Urine Nitrate Negative (Negative) 10/05/22 11:35 Urine Bilirubin Neg (Negative) 10/05/22 11:35 Urine Urobilinogen 4 mg/dL (Negative) H 10/05/22 11:35 Ur Leukocyte Esterase Negative (Negative) 10/05/22 11:35 Vancomycin Trough 14.4 ug/mL (10-15) 10/06/22 21:55 Influenza Type A Ag negative (Negative) 10/05/22 09:03 Influenza Type B Ag negative (Negative) 10/05/22 09:03 Vitals Last Vital Signs Temp 97.6 F 10/08/22 07:25 Pulse 62 10/08/22 07:25 Resp 16 10/08/22 07:25 BP 101/65 10/08/22 07:25 Pulse Ox 96 10/08/22 07:25 O2 Del Method 10/08/22 07:25 O2 Flow Rate 3 10/08/22 07:25 Discharge Plan Discharge Patient Disposition: Home Health Service Condition: Stable Prescriptions: New furosemide 20 mg Tablet 20 mg PO DAILY@0800 Qty: 30 0RF levofloxacin 750 mg tablet 750 mg PO DAILY 7 Days Qty: 7 0RF Continued atorvastatin 40 mg Tablet 40 mg PO DAILY ipratropium-albuterol 0.5 mg-3 mg(2.5 mg base)/3 mL Solution For Nebulization 3 ml INHALATION Q6H PRN (Reason: Shortness Of Breath) cetirizine 10 mg Tablet 10 mg PO DAILY PRN (Reason: Allergy Symptoms) pantoprazole 40 mg Tablet,Delayed Release (Dr/Ec) 40 mg PO DAILY Colace 100 mg Capsule 100 mg PO DAILY gabapentin 300 mg Capsule 300 mg PO BID aspirin 81 mg Tablet,Chewable 81 mg PO DAILY@0800 midodrine 2.5 mg Tablet 2.5 mg PO TID Rx Instructions: do not give last dose of day after 6PM or within 4 hrs of bedtime Miralax 17 gram/dose Powder 17 g PO DAILY finasteride 5 mg Tablet 5 mg PO DAILY budesonide-formoterol 160-4.5 mcg/actuation Hfa Aerosol Inhaler 2 puff INHALATION BID Xarelto 20 mg Tablet 20 mg PO DAILY Rx Instructions: must administer with evening meal Discontinued methylprednisolone [Medrol (Shamir)] 4 mg tablets,dose pack See Rx Instructions .ROUTE .COMPLEX Qty: 21 0RF Rx Instructions: orally per package directions doxycycline hyclate 100 mg tablet 100 mg PO BID 7 Days Qty: 14 0RF Rx Instructions: x 7 days Paxlovid (EUA) 300 mg (150 mg x 2)-100 mg tablets,dose pack See Rx Instructions .ROUTE .COMPLEX Qty: 30 0RF Rx Instructions: take TWO 150 mg tablets of nirmatrelvir with ONE 100 mg tablet of ritonavir twice daily for 5 days benzonatate 100 mg Capsule 100 mg PO TID PRN (Reason: Cough) Metamucil Clear-Natural (inul) 5 gram/5.8 gram Powder 5.8 g PO DAILY PRN (Reason: Fiber) guaifenesin 600 mg Tablet Extended Release 12hr 600 mg PO BID albuterol sulfate 2.5 mg/0.5 mL solution for nebulization 2.5 mg inhalation BID PRN (Reason: shortness of breath or wheezing) Discharge Orders: Discharge Order (Routine); Ordered 10/08/22 Ordered By: Yohan Krause Other Ambulatory Orders: DME: Commode (Order) Location: None Selected Ordered By: Yohan Krause DME: Wheelchair (Order) Location: None Selected Ordered By: Yohan Krause Referrals: [facility] ([facility]) [Outside] Rubia Maya MD [Primary Care Provider] - 4-7 days Datar,Justin Peña MD [Physician] - 7-10 days Discharge Diet: Soft Mechanical Discharge Activity: Increase activity as tolerated Patient Instructions: Opioid Safety Activity Restrictions/Additional Instructions: [place] thick liquids. Keep all follow-up Return for any concerns BMP on follow-up with primary care provider in 4 to 7 days Home oxygen evaluation prior to discharge Patient's Health Concerns: Recurrent hospital stays Assessment: Pneumonia present on admission, possible aspiration Plan of Treatment: Soft mechanical diet, nectar thick liquids Finish antibiotics for 7 days Follow-up with pulmonary and primary care provider Discharge Attestations Time Spent in Discharge Care*: greater than 30 min Quality Metrics Clinical Quality Measures [ No reported AMI, CVA or VTE this stay] Coding Level of Care Code Acute Chg FW [place] note Diagnoses Pneumonia J18.9 Pneumonia due to COVID-19 virus U07.1; J12.82 Waldenstroms macroglobulinemia C88.0 DVT (deep venous thrombosis) I82.409 Diastolic CHF I50.30
--- NOTE | 2022-10-08 09:41 | PC.SOCIAL ---
IMM update IMM updated with patient. Verbalized an understanding. Initialled, dated, timed, and placed in chart.
[2022-10-08] MEDS: budesonide 0.5 mg/2 mL Neb INHALATION (10:12)
[2022-10-08] MEDS: FUROsemide 20 mg Tablet PO (10:46)
--- NOTE | 2022-10-08 12:46 | PC.NURSE ---
Discussed discharge paperwork, new medications, discontinued medications and follow up appointments. All questions answered and verbalized understanding.
== END 2022-10-08 12:50 | disposition home health service (06) | DRG 194 ==
LOC: ER 13:46 → MEDSURG 13:57
PROVIDERS: Admitting Provider Internal Medicine; Emergency Provider Family Medicine; PCP Family Medicine; Visit Provider Internal Medicine
DX: J15.9 Unspecified bacterial pneumonia (principal); I50.30 Unspecified diastolic (congestive) heart failure; Z86.16 Personal history of COVID-19; I35.0 Nonrheumatic aortic (valve) stenosis; Z85.79 Personal history of other malignant neoplasms of lymphoid, hematopoietic and related tissues; Z86.718 Personal history of other venous thrombosis and embolism; N40.0 Benign prostatic hyperplasia without lower urinary tract symptoms; K21.9 Gastro-esophageal reflux disease without esophagitis; E78.5 Hyperlipidemia, unspecified; G62.9 Polyneuropathy, unspecified; G47.33 Obstructive sleep apnea (adult) (pediatric); Z87.01 Personal history of pneumonia (recurrent); Z87.891 Personal history of nicotine dependence; I25.2 Old myocardial infarction; J43.9 Emphysema, unspecified; Z79.01 Long term (current) use of anticoagulants; Z79.82 Long term (current) use of aspirin; R13.10 Dysphagia, unspecified; D64.9 Anemia, unspecified; J84.10 Pulmonary fibrosis, unspecified
CPT/HCPCS: 36415; 71045; 71275; 74230; 80048; 80053; 80076; 80202; 81003; 82728; 83540; 83550; 83605; 83735; 84145; 85025; 86140; 86403; 87040; 87641; 87804; 92526; 92610; 92611; 94640; 94760; 96365; 96367; 96375; 97110; 97161; 97530; 99285; J1956; J2185; J2405; J2543; J3370; J3475; J7030; J7050; J7626; Q9967

== ENCOUNTER 2022-10-30 08:14 | Inpatient (IN) | payer OTHER, SELFPAY ==
[2022-10-30] VITALS (74 sets, daily range): BP systolic 77–205; BP diastolic 54–133; PULSE 66–120; RESP 6–34; TEMP 37; O2SAT 92–100
--- NOTE | 2022-10-30 08:23 | ECG_ITS ---
[facility] Test Date: 2022-10-30 Pat Name: Robbie Rodriguez Department: Room: Gender: Male Soil Tester: : [id number] Requested By: Carmelo De Leon Order Number: [id number] Yaron MD: Joaquim Bernardo M.D. Measurements Intervals Ward Rate: 205 P: 0 MT: 0 QRS: -36 QRSD: 92 T: 0 QT: 227 QTc: 420 Interpretive Statements SUPRAVENTRICULAR TACHYCARDIA LEFT AXIS DEVIATION [QRS AXIS < -30] INCOMPLETE RIGHT BUNDLE BRANCH BLOCK [90+ ms QRS DURATION, TERMINAL R IN V1/V2, 40+ ms S IN I/aVL/V4/V5/V6] MODERATE ST DEPRESSION [0.05+ mV ST DEPRESSION] Compared to ECG 10/03/2022 17:59:05 Left-axis deviation now present Incomplete right bundle-branch block now present ST (T wave) deviation now present Sinus rhythm no longer present Ventricular premature complex(es) no longer present Electronically Signed On 10-31-2022 19:47:34 HUMAN FACTORS SCIENTIST by Joaquim Bernardo M.D. [id number]
[2022-10-30 08:31] LABS: ABG PH Result 7.34 (7.35-7.45); Arterial Blood Gas Hematocrit 30.2 % (42-52); Base Excess ABG -2.9 mmol/L (-2.0-2.0); Blood Gas Allen Test Pos; Blood Gas Sample Type Arterial; Carboxyhemoglobin 0.9 %THgb (0.4-20.1); HCO3 ABG 22.7 mmol/L (22-26); HGB O2 Sat 98.1 % (95-100); Ionized Calcium Level - ABG 1.2 mmol/L (1.1-1.4); Methemoglobin 0.9 % (0.4-1.5); Oxygen Saturation ABG 99.9; Potassium Level - ABG 3.1 mmol/L (3.5-5.0); Total Hemoglobin 9.9 g/dL (14-18)
--- NOTE | 2022-10-30 08:31 | XRR_ITS ---
PROCEDURE INFORMATION: Exam: XR Chest Exam date and time: 10/30/2022 9:17 AM Age: 72 years old Clinical indication: Device placement; Ett placement (vent status); Prior surgery; Additional info: Dyspnea/cough TECHNIQUE: Imaging protocol: Radiologic exam of the chest. Views: 1 view. COMPARISON: CR XR chest 1V portable [id number] 10/05/2022 9:20 AM FINDINGS: Tubes, catheters and devices: Interval placement of an endotracheal tube in the midline with tip 3.7 cm from the sanjeev. Unchanged left internal jugular Port-A-Cath is seen with tip overlying the cavoatrial junction. Lungs: Normal lung volumes. [id number] left and mild right perihilar and basilar interstitial opacities are seen. This may represent asymmetric pulmonary edema. Underlying pneumonia cannot be excluded. Recommend correlation with clinical findings and follow-up. Pleural spaces: No pleural effusion. No pneumothorax. Heart/Mediastinum: Normal heart size. Midline trachea. There is a mildly tortuous thoracic aorta. Bones/joints: No acute osseous abnormalities seen. Small degenerative osteophytes are seen throughout the thoracic spine. Soft tissues: Multiple external densities are seen overlying the chest, limiting assessment. XR/XR chest 1V portable [id number] IMPRESSION: 1. Interval placement of an endotracheal tube with tip 3.7 cm from the sanjeev. 2. [id number] left and mild right perihilar and basilar interstitial opacities. This may represent asymmetric pulmonary edema. Underlying pneumonia cannot be excluded. Recommend correlation with clinical findings and follow-up.
[2022-10-30 08:32] LABS: Blood Gas Operator Identificat CAK; Oxygen Device VENT
--- NOTE | 2022-10-30 08:34 | W.ED.GENADLT ---
HPI - General Adult General: Chief complaint: Shortness of Breath/Dyspnea Stated complaint: RESP DISTRESS Time Seen by Provider: 10/30/22 08:19 Source: EMS Mode of arrival: EMS History of Present Illness: 72-year-old male brought into the emergency room after developing respiratory arrest this morning after he woke up. He has a history of DVTs on Xarelto he seemed to be at his normal state of good health this morning when he woke up he was up and around and then began having shortness of breath EMS reports on arrival he went respiratory began having respiratory distress they did RSI intubation with rocuronium and Versed he arrives here intubated in A. fib with RVR. He has no known history of A. fib and was recently hospitalized for a bacterial pneumonia was septic. History of chronic kidney disease.. Review of Systems General: Reports: ROS unobtainable due to endotracheal tube PFS ED PFSH: Medical History BPH (benign prostatic hyperplasia) Diastolic CHF DVT (deep venous thrombosis) GERD (gastroesophageal reflux disease) Hyperlipidemia Hypotension Neuropathy Obstructive sleep apnea Pneumonia due to COVID-19 virus Waldenstroms macroglobulinemia Surgical History History of tonsillectomy Family History Other CAD (coronary artery disease) Social History Smoking and tobacco status: former smoker Alcohol intake: never Physical Exam Const: COMMON NORMALS: no acute distress GENERAL APPEARANCE: cooperative and comfortable ORIENTATION/CONSCIOUSNESS: Yes awake HENMT: COMMON NORMALS: normocephalic, atraumatic and hearing grossly normal bilaterally HEAD & SCALP: normocephalic and atraumatic Resp: COMMON NORMALS: clear to auscultation bilaterally EFFORT & INSPECTION: Yes other (Fully ventilated with ET tube in place) AUSCULTATION: clear to auscultation bilaterally Cardio: RATE: tachycardic RHYTHM: abnormal rhythm irregularly irregular GI: COMMON NORMALS: Soft to palpation and No hepatosplenomegaly present AUSCULTATION: Yes normoactive bowel sounds PALPATION: Yes Soft to palpation, No Tenderness to palpation present (GI), No Guarding due to palpation present (GI) and Yes No hepatosplenomegaly present Extremity: COMMON NORMALS: normal to inspection, capillary refill normal, no clubbing, cyanosis or edema, no calf tenderness and no pedal edema Skin: COMMON NORMALS: no rashes or lesions noted GENERAL SKIN EXAM: no rashes or lesions noted Course Vital Signs: Vital signs: Vital Signs Pulse Rate 84 10/30/22 11:36 Respiratory Rate 6 L 10/30/22 11:36 Blood Pressure 86/60 10/30/22 11:36 Pulse Oximetry 94 10/30/22 11:36 Oxygen Delivery Me thod 10/30/22 11:30 Fraction of Inspir ed Oxygen 40 10/30/22 11:08 [facility] - General Adult Medical Decision Making Patient clinically looked as if he was in atrial fibrillation given Cardizem he did respond well to have it maintained tachycardic in the 120s and 130s improved with fluid and further sedation. We attempted to wean him off the ventilator as concerned that may be the episode of atrial fibrillation precipitated it and he could be off the vent however attempts at pressure support failed and he desatted his tidal volume was low. Sedation increased as well as starting on vasopressors. He has been started on cefepime and vancomycin for pneumonia. His lactate is significantly elevated. Has been given 2 L of fluid he does sound fluid overloaded now which is a change from when he first arrived not giving any more fluids due to concerns of precipitating worsening heart failure. His white count is markedly elevated as well. Discussed with hospitalist orders written Medical Records I reviewed the patient's medical records. Lab Data I reviewed the patient's lab results. 10/30/22 08:39 10/30/22 08:39 Radiology Impressions Chest X-Ray 10/30/22 08:31 IMPRESSION: 1. Interval placement of an endotracheal tube with tip 3.7 cm from the sanjeev. 2. [id number] left and mild right perihilar and basilar interstitial opacities. This may represent asymmetric pulmonary edema. Underlying pneumonia cannot be excluded. Recommend correlation with clinical findings and follow-up. Chest CTA 10/30/22 08:50 IMPRESSION: 1. No CTA evidence of pulmonary embolism, thoracic aortic aneurysm or thoracic aortic dissection. 2. Interval increased mild right and moderate left upper lobe hazy ground-glass opacities with tiny scattered regions of consolidation in the lingula. Increased bilateral lower lobe mild ground-glass opacities with small regions of consolidation, left greater than right. New tiny right and small left pleural effusions. These findings may represent pulmonary edema, although underlying pneumonia cannot be excluded. 3. Mild 4 chamber cardiomegaly. 4. Endotracheal tube, as noted above. Laboratory Results WBC 26.6 10^3/uL (4.0-10.0) H 10/30/22 08:39 RBC 4.06 10^6/uL (4.1-5.3) L 10/30/22 08:39 Hgb 10.8 g/dL (11.7-16.6) L 10/30/22 08:39 Hct 36.2 % (42.0-52.0) L 10/30/22 08:39 MCV 89.2 fl (80-94) 10/30/22 08:39 MCH 26.6 pg (28.0-34.0) L 10/30/22 08:39 MCHC 29.8 g/dL (30.0-36.0) L 10/30/22 08:39 RDW 17.4 % (12.1-15.1) H 10/30/22 08:39 Plt Count 429 10^3/cmm (130-400) H 10/30/22 08:39 MPV 10.7 fL (7.4-10.4) H 10/30/22 08:39 Neut % (Auto) 93.0 % 10/30/22 08:39 Lymph % (Auto) 0.7 % 10/30/22 08:39 Turner % (Auto) 3.8 % 10/30/22 08:39 Eos % (Auto) 0.0 % 10/30/22 08:39 Baso % (Auto) 0.2 % 10/30/22 08:39 Neut # (Auto) 24.75 10^3/uL (1.8-7.7) H 10/30/22 08:39 Lymph # (Auto) 0.2 10^3/uL (0.8-4.8) L 10/30/22 08:39 Turner # (Auto) 1.0 10^3/uL (0.2-0.9) H 10/30/22 08:39 Eos # (Auto) 0.0 10^3/uL (0.0-0.8) 10/30/22 08:39 Baso # (Auto) 0.0 10^3/uL (0.0-0.1) 10/30/22 08:39 Nucleated RBC % (auto) 0 % 10/30/22 08:39 Nucleated RBCs # 0.0 /100WBC 10/30/22 08:39 Specimen Type Arterial 10/30/22 08:30 ABG pH 7.34 (7.35-7.45) L 10/30/22 08:30 ABG pCO2 42.0 mmHg (35-45) 10/30/22 08:30 ABG pO2 225.0 mmHg (80.0-100.0) H 10/30/22 08:30 ABG HCO3 22.7 mmol/L (22-26) 10/30/22 08:30 ABG O2 Saturation 99.9 10/30/22 08:30 ABG Base Excess -2.9 mmol/L (-2.0-2.0) L 10/30/22 08:30 Colt Test Pos 10/30/22 08:30 A-a O2 Gradient Not Reportable 10/30/22 08:30 Hematocrit 30.2 % (42-52) L 10/30/22 08:30 Hgb O2 Saturation 98.1 % (95-100) 10/30/22 08:30 Carboxyhemoglobin 0.9 %THgb (0.4-20.1) 10/30/22 08:30 Methemoglobin 0.9 % (0.4-1.5) 10/30/22 08:30 Total Hemoglobin 9.9 g/dL (14-18) L 10/30/22 08:30 Sodium 142.0 mmol/L (131-143) 10/30/22 08:30 Potassium 3.1 mmol/L (3.5-5.0) L 10/30/22 08:30 Glucose 109.0 mg/dL (70-115) 10/30/22 08:30 Ionized Calcium 1.2 mmol/L (1.1-1.4) 10/30/22 08:30 O2 Delivery Device Vent 10/30/22 08:30 Supply Chain Development Manager ID Cak 10/30/22 08:30 Sodium 140 mmol/L (136-145) 10/30/22 08:39 Potassium 4.2 mmol/L (3.5-5.1) 10/30/22 08:39 Chloride 101 mmol/L (98-107) 10/30/22 08:39 Carbon Dioxide 19 mmol/L (22-29) L 10/30/22 08:39 Anion Gap 24.2 (5-19) H 10/30/22 08:39 BUN 10 mg/dL (8-23) 10/30/22 08:39 Creatinine 0.6 mg/dL (0.7-1.2) L 10/30/22 08:39 GFR Calculation Not Reportable 10/30/22 08:39 Glucose 95 mg/dL (65-115) 10/30/22 08:39 Calculated Osmolality 289 mOsm/kg (285-295) 10/30/22 08:39 Lactic Acid 8.8 mmol/L (0.5-2.2) H* 10/30/22 08:39 Calcium 8.8 mg/dL (8.5-10.5) 10/30/22 08:39 Magnesium 1.8 mg/dL (1.7-2.3) 10/30/22 08:39 Total Bilirubin 0.7 mg/dL (0.15-1.2) 10/30/22 08:39 AST 133 U/L (0-40) H 10/30/22 08:39 ALT 70 U/L (0-41) H 10/30/22 08:39 Alkaline Phosphatase 163 U/L (40-130) H 10/30/22 08:39 Troponin T Baseline 98 ng/L (0-15) H 10/30/22 08:39 Troponin T 120 Minute 135.7 ng/L (0-15) H 10/30/22 10:34 Delta Troponin T 37.7 ABS# (0-10) H* 10/30/22 10:34 Total Protein 4.8 g/dL (6.6-8.7) L 10/30/22 08:39 Albumin 2.5 g/dL (3.5-5.2) L 10/30/22 08:39 Globulin 2.3 g/dL (1.3-4.6) 10/30/22 08:39 Urine Color Dark yellow (Yellow) 10/30/22 09:33 Urine Appearance Clear (CLEAR) 10/30/22 09:33 Urine pH 5 (5-7) 10/30/22 09:33 Ur Specific [place] 1.020 (1.005-1.030) 10/30/22 09:33 Urine Protein Trace (Negative) 10/30/22 09:33 Urine Glucose (UA) Norm (Normal) 10/30/22 09:33 Urine Ketones 1+ (Negative) H 10/30/22 09:33 Urine Blood Neg (Negative) 10/30/22 09:33 Urine Nitrate Negative (Negative) 10/30/22 09:33 Urine Bilirubin Neg (Negative) 10/30/22 09:33 Urine Urobilinogen 1 mg/dL (Negative) H 10/30/22 09:33 Ur Leukocyte Esterase Negative (Negative) 10/30/22 09:33 Urine RBC None /hpf (0-2) 10/30/22 09:33 Urine WBC 0-4 /hpf (0-5) H 10/30/22 09:33 Ur Squamous Epith Cells None /hpf (0-5) 10/30/22 09:33 Amorphous Sediment Not Reportable 10/30/22 09:33 Urine Bacteria Trace /hpf (NONE) 10/30/22 09:33 Hyaline Casts 15-25 /lpf H 10/30/22 09:33 Coarse Granular Casts 0-4 /lpf H 10/30/22 09:33 Urine Mucus Trace /hpf 10/30/22 09:33 Serum Ketones Negative (Negative) 10/30/22 08:39 Influenza Type A Ag negative (Negative) 10/30/22 10:35 Influenza Type B Ag negative (Negative) 10/30/22 10:35 Discharge Plan Discharge Condition: Stable Prescriptions: No Action atorvastatin 40 mg Tablet 40 mg PO DAILY ipratropium-albuterol 0.5 mg-3 mg(2.5 mg base)/3 mL Solution For Nebulization 3 ml INHALATION Q6H PRN (Reason: Shortness Of Breath) cetirizine 10 mg Tablet 10 mg PO DAILY PRN (Reason: Allergy Symptoms) pantoprazole 40 mg Tablet,Delayed Release (Dr/Ec) 40 mg PO DAILY docusate sodium [Colace] 100 mg Capsule 100 mg PO DAILY gabapentin 300 mg Capsule 300 mg PO BID aspirin 81 mg Tablet,Chewable 81 mg PO DAILY@0800 midodrine 2.5 mg Tablet 2.5 mg PO TID Rx Instructions: do not give last dose of day after 6PM or within 4 hrs of bedtime finasteride 5 mg Tablet 5 mg PO DAILY budesonide-formoterol 160-4.5 mcg/actuation Hfa Aerosol Inhaler 2 puff INHALATION BID Xarelto 20 mg Tablet 20 mg PO DAILY Rx Instructions: must administer with evening meal albuterol sulfate 90 mcg/actuation Hfa Aerosol Inhaler 2 puff INHALATION QID PRN (Reason: Shortness Of Breath) Coding Level of Care Code ED Roll Changer for Chg Fwd Exam Detailed
[2022-10-30] MEDS: propofol 1,000 MG/100 ML INJ 6.53 MG IV (08:35)
[2022-10-30] MEDS: dilTIAZem 5 mg/mL SDV 5 mL 25 MG (08:36)
--- NOTE | 2022-10-30 08:37 | ECG_ITS ---
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 Measurements Intervals [place] Rate: 139 P: 25 MT: 140 QRS: 30 QRSD: 96 T: -4 QT: 331 QTc: 504 Interpretive Statements SINUS TACHYCARDIA WITH FREQUENT SUPRAVENTRICULAR PREMATURE COMPLEXES INCOMPLETE RIGHT BUNDLE BRANCH BLOCK [90+ ms QRS DURATION, TERMINAL R IN V1/V2, 40+ ms S IN I/aVL/V4/V5/V6] NONSPECIFIC ST & T-WAVE ABNORMALITY Compared to ECG 10/30/2022 08:23:27 T-wave abnormality now present Supraventricular tachycardia no longer present Left-axis deviation no longer present ST (T wave) deviation no longer present Electronically Signed On 10-31-2022 19:47:21 DIRECTOR RADIO by Joaquim Bernardo M.D. [id number] f
[2022-10-30] MEDS: dilTIAZem 100 MG in sodium chloride 0.9% (add-van) 100 ML IV (08:47)
--- NOTE | 2022-10-30 08:50 | CTR_ITS ---
PROCEDURE INFORMATION: Exam: CTA Chest With Contrast Exam date and time: 10/30/2022 9:44 AM Age: 72 years old Clinical indication: Shortness of breath; Prior surgery; Surgery date: 6+ months; Surgery type: Port; Additional info: HX dvt, tachycardia, hypoxia TECHNIQUE: Imaging protocol: Computed tomographic angiography of the chest with contrast. 3D rendering (Not supervised by radiologist): MIP and/or 3D reconstructed images were created by the technologist. Radiation optimization: All CT scans at this facility use at least one of these dose optimization techniques: automated exposure control; mA and/or kV adjustment per patient size (includes targeted exams where dose is matched to clinical indication); or iterative reconstruction. Contrast material: OMNI 350; Contrast volume: 86 ml; Contrast route: INTRAVENOUS (IV); COMPARISON: CT angio chest PE protcl [id number] 10/05/2022 9:36 AM RADIATION DOSE METRICS: Total DLP (mGy-cm): 376.01 FINDINGS: Tubes, catheters and devices: Endotracheal tube is seen with tip 3.7 cm from the sanjeev. Pulmonary arteries: No CT evidence for segmental pulmonary emboli. The main pulmonary arteries and outflow trunk are unremarkable. Aorta: No thoracic aortic aneurysm. No thoracic aortic dissection. Trachea: The central airway is normal. Lungs: There are normal lung volumes. Unchanged moderate centrilobular emphysema is seen, most prominent in the upper lobes. Right lower lobe posterior basilar 0.4 x 0.5 cm calcified granuloma is seen. Interval increased mild right and moderate left upper lobe hazy ground-glass opacities with tiny scattered regions of consolidation in the lingula. Increased bilateral lower lobe mild ground-glass opacities are seen with small regions of consolidation, left greater than right. New tiny right and small left pleural effusions. These findings may represent pulmonary edema, although underlying pneumonia cannot be excluded. Pleural spaces: No pneumothorax. Heart: Mild 4 chamber cardiomegaly. [id number] left anterior descending coronary arterial atherosclerotic vascular calcifications. Mild aortic valvular calcifications. No pericardial effusion. Lymph nodes: No enlarged lymph nodes. Bones/joints: No acute osseous abnormalities. Small degenerative osteophytes are seen throughout the thoracic spine. Medium-sized degenerative osteophytes are seen in the visualized upper lumbar spine. Soft tissues: Unremarkable. CT/CT angio chest PE protcl [id number] IMPRESSION: 1. No CTA evidence of pulmonary embolism, thoracic aortic aneurysm or thoracic aortic dissection. 2. Interval increased mild right and moderate left upper lobe hazy ground-glass opacities with tiny scattered regions of consolidation in the lingula. Increased bilateral lower lobe mild ground-glass opacities with small regions of consolidation, left greater than right. New tiny right and small left pleural effusions. These findings may represent pulmonary edema, although underlying pneumonia cannot be excluded. 3. Mild 4 chamber cardiomegaly. 4. Endotracheal tube, as noted above.
[2022-10-30 08:52] LABS: Basophils % 0.2 %; Hematocrit 36.2 % (42.0-52.0); Hemoglobin 10.8 g/dL (11.7-16.6); Lymphocytes # 0.2 10^3/uL (0.8-4.8); Lymphocytes % 0.7 %; Mean Corpuscular HGB Conc 29.8 g/dL (30.0-36.0); Mean Corpuscular Hemoglobin 26.6 pg (28.0-34.0); Mean Corpuscular Volume 89.2 fl (80-94); Mean Platelet Volume 10.7 fL (7.4-10.4); Monocytes % 3.8 %; Neutrophils # 24.75 10^3/uL (1.8-7.7); Nucleated Red Blood Cells % 0 %; Platelet Count 429 10^3/cmm (130-400); Red Blood Count 4.06 10^6/uL (4.1-5.3); Red Cell Distribution Width 17.4 % (12.1-15.1); White Blood Count 26.6 10^3/uL (4.0-10.0)
[2022-10-30] MEDS: potassium chloride premix 100 ML 25 MEQ IV (08:56)
[2022-10-30 08:58] LABS: Ketone (Acetest) Serum Negative (Negative)
[2022-10-30 09:24] LABS: Alanine Aminotransferase 70 U/L (0-41); Albumin Level 2.5 g/dL (3.5-5.2); Alkaline Phosphatase 163 U/L (40-130); Blood Urea Nitrogen 10 mg/dL (8-23); Calcium 8.8 mg/dL (8.5-10.5); Carbon Dioxide 19 mmol/L (22-29); Chloride 101 mmol/L (98-107); Globulin 2.3 g/dL (1.3-4.6); Glucose 95 mg/dL (65-115); Magnesium 1.8 mg/dL (1.7-2.3); Osmolality Calculated 289 mOsm/kg (285-295); Sodium 140 mmol/L (136-145); Total Bilirubin 0.7 mg/dL (0.15-1.2); Total Protein 4.8 g/dL (6.6-8.7)
[2022-10-30 09:26] LABS: Anion Gap 24.2 (5-19); Aspartate Amino Transferase 133 U/L (0-40); Potassium 4.2 mmol/L (3.5-5.1)
[2022-10-30 09:29] LABS: Troponin(5th) Baseline 98 ng/L (0-15)
[2022-10-30 09:32] LABS: Lactic Sepsis W/Reflex 8.8 mmol/L (0.5-2.2)
[2022-10-30] MEDS: sodium chloride 0.9% 1,000 ML 999 ML IV (09:45)
[2022-10-30 10:00] LABS: Urine Appearance Clear (CLEAR); Urine Color Dark Yellow (Yellow); pH Urine 5 (5-7)
[2022-10-30 10:01] LABS: Add Urine Microscopic? YES; Bilirubin Urine Neg (Negative); Blood Urine Neg (Negative); Glucose Urine UA Norm (Normal); Ketones Urine 1+ (Negative); Leukocyte Esterase Urine Negative (Negative); Nitrate Urine Negative (Negative); Protein Urine Trace (Negative); Urobilinogen Urine 1 mg/dL (Negative); WBC Urine 0-4 /hpf (0-5)
[2022-10-30 10:02] LABS: Add Urine Culture? No; Bacteria Urine TRACE /hpf; Coarse Granular Casts Urine 0-4 /lpf; Hyaline Casts Urine 15-25 /lpf; Mucus Urine TRACE /hpf
[2022-10-30] MEDS: iohexol 350 mg/mL 500 mL Btl (per mL) IV (10:14)
--- NOTE | 2022-10-30 10:32 | ECG_ITS ---
[facility] Test Date: 2022-10-30 Pat Name: Robbie Rodriugez Department: Room: Gender: Male Reading Aide: : 1950 Requested By: Carmelo De Leon Order Number: [id number] Yaron MD: Joaquim Bernardo M.D. Measurements Intervals [place] Rate: 117 P: 30 PA: 137 QRS: 18 QRSD: 93 T: 32 QT: 340 QTc: 476 Interpretive Statements SINUS TACHYCARDIA WITH OCCASIONAL SUPRAVENTRICULAR PREMATURE COMPLEXES INCOMPLETE RIGHT BUNDLE BRANCH BLOCK [90+ ms QRS DURATION, TERMINAL R IN V1/V2, 40+ ms S IN I/aVL/V4/V5/V6] NONSPECIFIC T-WAVE ABNORMALITY ABNORMAL RHYTHM ECG Compared to ECG 10/30/2022 08:37:29 No significant changes Electronically Signed On 10-31-2022 19:59:05 METAL SPRAYER by Joaquim Bernardo M.D. [id number]
[2022-10-30 10:36] LABS: Reflex Lactate Order REFLEX LACTIC ORDERD
[2022-10-30 10:56] LABS: Troponin 5 2HR 135.7 ng/L (0-15)
[2022-10-30 10:57] LABS: Troponin 5 2HR Delta 37.7 ABS# (0-10)
[2022-10-30] MEDS: LORazepam 2 mg/mL INJ 1 mL IVP (11:03)
[2022-10-30] MEDS: cefepime 2,000 MG in sodium chloride 0.9% (plus) 50 ML 100 MG IV (11:03)
[2022-10-30 11:05] LABS: Influenza A by IFA negative (Negative); Influenza B by IFA negative (Negative)
[2022-10-30 12:04] LABS: Lactic Acid level (Lactate) 1.2 mmol/L (0.5-2.2)
[2022-10-30] MEDS: enoxaparin 80 mg/0.8 mL Syringe SUBCUT (12:37)
--- NOTE | 2022-10-30 13:30 | P.HP_ITS ---
Providers/Chief Complaint Admitting Physician: Jluis Duffy MD Chief Complaint: RESP DISTRESS History of Present Illness Robbie Rodriguez is a 72 year old male with past medical history of aortic stenosis, WaldenStrom macroglobulinemia, DVT , HFpEF, COVID-19 pneumonia in March, for which he was intubated, likely for about a week, and then had a prolonged hospital recovery course, he was also recently admitted at our facility in September for management of bacterial pneumonia, and was discharged home on 3 Ls oxygen,according to the family, patient has significant desaturation with minimal exertion at home lately, and there are also complaining of transient subjective intermittent fever. when he woke up this morning he was in signific ant respiratory distress for which EMS was called and and patient had to be intubated in route, when patient arrived here he was found to be in A. fib with RVR, for which in the ER, he was placed on Cardizem drip, after receiving Cardizem bolus, he also received, IV fluid bolus in the ER, Along with, a dose of Vanco and cefepime, as well as a dose of therapeutic Lovenox, at 1 point in time in the ER , consideration was given to do synchronized cardioversion for hemodynamically unstable A. fib, patient did not required it. Pertinent imaging studies done in the ER included CTA chest: Which has shown bilateral infiltrates,Interval increased mild right and moderate left upper lobe hazy ground-glass opacities with tiny scattered regions of consolidation in the lingula. Increased bilateral lower lobe mild ground-glass opacities with small regions of consolidation, left greater than right. New tiny right and small left pleural effusions. These findings may represent pulmonary edema, although underlying pneumonia. ? Serial EKG: Results appreciated. Pertinent labs: WBC 26.6, H&H 10.8/ 36 ,plt : 429 , sodium 140, potassium 4.2, BUN serum creatinine 10/0.6 , AST 133, ALT 70, ALP 163 Troponin trend: 98-135-103 Influenza negative Lactic acid: 8.8-repeat lactic acid 1.2 Urinalysis: Result appreciated Review of Systems General: Reports: ROS unobtainable due to endotracheal tube Medications/Allergies Home Medications Medication Instructions Recorded Confirmed Last Taken Type aspirin 81 mg chewable tablet 81 mg PO DAILY@0800 10/05/22 10/30/22 10/29/22 History atorvastatin 40 mg tablet 40 mg PO DAILY 10/05/22 10/30/22 10/29/22 History budesonide-formoterol HFA 160 2 puff inhalation BID 10/05/22 10/30/22 10/29/22 History mcg-4.5 mcg/actuation aerosol inhaler cetirizine 10 mg tablet 10 mg PO DAILY PRN Allergy Symptoms 10/05/22 10/30/22 Unknown History docusate sodium 100 mg capsule 100 mg PO DAILY 10/05/22 10/30/22 10/29/22 History (Colace) finasteride 5 mg tablet 5 mg PO DAILY 10/05/22 10/30/22 10/29/22 History gabapentin 300 mg capsule 300 mg PO BID 10/05/22 10/30/22 10/29/22 History ipratropium 0.5 mg-albuterol 3 mg 3 ml inhalation Q6H PRN Shortness 10/05/22 10/30/22 Unknown History (2.5 mg base)/3 mL nebulization Of Breath soln midodrine 2.5 mg tablet 2.5 mg PO TID 10/05/22 10/30/22 10/29/22 History pantoprazole 40 mg tablet,delayed 40 mg PO DAILY 10/05/22 10/30/22 10/29/22 History release rivaroxaban 20 mg tablet (Xarelto) 20 mg PO DAILY 10/05/22 10/30/22 10/29/22 History albuterol sulfate 90 mcg/actuation 2 puff inhalation QID PRN 10/30/22 10/30/22 Unknown History aerosol inhaler Shortness Of Breath Allergies Allergy/AdvReac Type Severity Reaction Status Date / Time No Known Allergies Allergy Unverified 10/05/22 12:08 PFSH Acute PFSH: Medical History BPH (benign prostatic hyperplasia) Diastolic CHF DVT (deep venous thrombosis) GERD (gastroesophageal reflux disease) Hyperlipidemia Hypotension Neuropathy Obstructive sleep apnea Pneumonia due to COVID-19 virus Waldenstroms macroglobulinemia Surgical History History of tonsillectomy Family History Other CAD (coronary artery disease) Social History Smoking and tobacco status: former smoker Alcohol intake: never Vitals/I&O/Wt Last Vital Signs Pulse 75 10/30/22 12:50 Resp 18 10/30/22 12:50 BP 101/67 10/30/22 12:50 Pulse Ox 97 10/30/22 12:45 O2 Del Method 10/30/22 11:30 FiO2 40 10/30/22 11:08 10/29/22 10/30/22 10/30/22 22:59 06:59 14:59 Intake Total 1017.576 / 1017.576 Balance 1017.576 / 1017.576 Weight last 48 hrs Weight 72.575 kg Physical Exam Narrative: Intubated sedated on mechanical ventilation HENMT: COMMON NORMALS: normocephalic and atraumatic HEAD & SCALP: normocephalic and atraumatic Eye: COMMON NORMALS: no scleral icterus GENERAL EYE: appearance normal, both eyes and all related structures Chest: COMMONS NORMALS: normal inspection of the chest and normal palpation of entire chest wall CHEST: Yes Symmetrical chest wall rise Resp: OTHER: Coarse breath sound bilateral Cardio: COMMON NORMALS: regular rate, regular rhythm, S1 normal heart sound present, S2 normal heart sound present and Peripheral pulses 2+ throughout RATE: regular rate RHYTHM: regular rhythm HEART SOUNDS: S1 normal heart sound present and S2 normal heart sound present PERIPHERAL PULSES: Peripheral pulses 2+ throughout OTHER: ESM in aortic area GI: COMMON NORMALS: Normal to inspection, nondistended, normoactive bowel sounds present, Soft to palpation, non-tender, No hepatosplenomegaly present and no masses AUSCULTATION: Yes normoactive bowel sounds PALPATION: Yes Soft to palpation and Yes No hepatosplenomegaly present RECTAL EXAM: Yes deferred Extremity: COMMON NORMALS: no clubbing, cyanosis or edema and no pedal edema Urinary Catheter Management: Nunez: Cath Placed During This Visit: yes Urinary Catheter Date of Insertion: 10/30/22 Data 10/30/22 08:39 10/30/22 08:39 Micro: Microbiology 10/30/22 08:44 Blood Culture - Preliminary Blood SPECIMEN COLLECTED 10/30/22 08:39 Blood Culture - Preliminary Blood SPECIMEN COLLECTED A&P Assessment and plan (1) Pneumonia: (2) DVT (deep venous thrombosis): (3) Diastolic CHF: Plan 72 year old male with past medical history of aortic stenosis, WaldenStrom macroglobulinemia, DVT on Xarelto at home, HFpEF, COVID-19 pneumonia in March, for which he was intubated, likely for about a week, and then had a prolonged hospital recovery course, was brought in from home today for management of respiratory distress. Currently intubated sedated on mechanical ventilation. Assessment: Acute on chronic hypoxic respiratory failure, secondary to pneumonia NSTEMI likely type II secondary to A. fib with RVR, acute hypoxia, A. fib with RVR Possible sepsis: Patient has elevated WBC, complaining of intermittent subjective fever at home, signs of endorgan dysfunction, elevated lactic acid, though could be secondary to acute hypotension secondary to A. fib with RVR, tachypneic tachycardic,patient has received fluid boluses in the ER. Transaminitis: Possibly secondary to transient hypotension: Shock liver History of COVID-19 pneumonia History of DVT History of heart failure with preserved ejection fraction Aortic stenosis Anemia: Likely ACD Plan: Follow blood culture Urine culture Urine Legionella antigen Bacterial antigen panel MRSA PCR Follow respiratory viral panel Sputum gram stain and culture Follow 2D echo Patient is currently converted to sinus rhythm, Cardizem drip has been discontinued, Currently on vancomycin as well as Zosyn and levofloxacin for double Pseudomonas coverage Levofloxacin will also provide atypical coverage Continue Levophed, titrate to maintain MAP greater than 65 Currently on therapeutic anticoagulation with Lovenox, will also cover him for history of DVT, Continue DuoNebs, continue budesonide inhaler Currently on propofol for sedation Monitor ABG( P/F ratio) , x-ray chest Currently on mechanical ventilation ( VC/AC, tidal volume 480, PEEP of 8, FiO2 40%,R/R: 14, Ti: 0.9,) Monitor CMP, possible ultrasound abdomen. Monitor intake output charting Daily weight Monitor electrolytes We will keep n.p.o. for now: We will plan to initiate tube feed CODE STATUS: Full code DVT prophylaxis not needed on therapeutic anticoagulation Attestations Medical Necessity Statement*: Patient is to be in hospital for management of acute hypoxic respiratory failure, pneumonia. Anticipated length of stay greater than 2 midnights. Time Spent in Patient Care: Greater than 35 minutes (>than 50% of time spent in counselling and/or direct pt care on unit) . Critical Care Time: The high probability of a clinically significant, sudden or life threatening deterioration of the patient's [] system(s) required my full and direct attention, intervention and personal management. The critical care time is as shown. This time is in addition to time spent performing any reported procedures but includes the following: [x] Data and vital sign review and interpretation [x] Patient assessment, examination and intervention [x] Documentation [x] Medication orders and management Critical Care Time (min): 90 Coding Level of Care Code Acute Business Rules Analyst for g Fwd Diagnoses Pneumonia J18.9 DVT (deep venous thrombosis) I82.409 Diastolic CHF I50.30
--- NOTE | 2022-10-30 14:30 | PC.NURSE ---
received from er sedated on vent has levophed infusing in port iv site left arm piid other site infiltrated not started vanc at this time og tube placed when in room and iv sited left hand area propofol started for sedation ... iv right placed started other antibotics order at this time .. very restless gaging slowly increase sedation at this time.
[2022-10-30] MEDS: propofol 1,000 MG/100 ML INJ 21.77 MG IV (14:40)
[2022-10-30] MEDS: piperacillin-tazobactam 3.375 GM in sodium chloride 0.9% (plus) 50 ML IV ×2 (14:42→21:02)
[2022-10-30] MEDS: vancomycin 1,000 MG in sodium chloride 0.9% 250 ML 250 MG IV (14:44)
--- NOTE | 2022-10-30 15:00 | PC.NURSE ---
family in for visit now with sedation adequate .. and resting monitor vs .. noted temp
--- NOTE | 2022-10-30 15:20 | ECG_ITS ---
[facility] Test Date: 2022-10-30 Pat Name: Robbie Rodriguez Department: Room: [facility] Gender: Male Ion Exchange Operator: : 1950 Requested By: Carmelo De Leon Order Number: [id number] Yaron MD: Joaquim Bernardo M.D. Measurements Intervals [place] Rate: 75 P: -15 [place]: 125 QRS: 8 QRSD: 102 T: 10 QT: 387 QTc: 435 Interpretive Statements SINUS RHYTHM Compared to ECG 10/30/2022 09:37:11 Sinus tachycardia no longer present Incomplete right bundle-branch block no longer present T-wave abnormality no longer present Electronically Signed On 10-31-2022 19:58:35 [employer] ADJUSTER by Joaquim Bernardo M.D. [id number]
[2022-10-30] MEDS: levofloxacin-dextrose 5 % 750 MG/150 ML PREMIX 100 MG IV (15:56)
[2022-10-30] MEDS: ipratropium-albuterol 3 mL Neb INHALATION ×3 (15:57→23:23)
[2022-10-30 16:09] LABS: Troponin 5 6HR Delta 5.1 ng/L (0-12)
[2022-10-30 16:10] LABS: Troponin 5 6HR 103.1 ng/L (0-15)
[2022-10-30 17:24] LABS: ABG PCO2 34.9 mmHg (35-45); ABG PH Result 7.45 (7.35-7.45); Alveolar-Arterial Oxygen Gradi 14.9 mmHg (5-10); Arterial Blood Gas Hematocrit 32.1 % (42-52); Base Excess ABG 0.1 mmol/L (-2.0-2.0); Blood Gas Allen Test Pos; Blood Gas Operator Identificat CAK; Blood Gas Sample Site Radial, left; Blood Gas Sample Type Arterial; Blood Gas Tidal Volume 0.48; HCO3 ABG 23.9 mmol/L (22-26); HGB O2 Sat 97.7 % (95-100); Ionized Calcium Level - ABG 1.2 mmol/L (1.1-1.4); Methemoglobin 0.6 % (0.4-1.5); Oxygen Device VENT; Oxygen Saturation ABG 99.3; Potassium Level - ABG 3.5 mmol/L (3.5-5.0); Total Hemoglobin 10.5 g/dL (14-18)
--- NOTE | 2022-10-30 18:02 | PC.NURSE ---
ua specimen and nasal spec obtained and sent to lab at this time
[2022-10-30] MEDS: norepinephrine 8 MG in dextrose 5 % 500 ML 30.48 MG IV (18:47)
[2022-10-30] MEDS: budesonide 0.5 mg/2 mL Neb INHALATION (19:41)
[2022-10-30] MEDS: propofol 1,000 MG/100 ML INJ 10.89 MG IV (23:11)
[2022-10-31] VITALS (96 sets, daily range): BP systolic 82–120; BP diastolic 50–82; PULSE 53–101; RESP 14–41; TEMP 31.8–36.8; O2SAT 66–98
[2022-10-31] MEDS: enoxaparin 60 mg/0.6 mL Syringe SUBCUT ×2 (01:10→14:36)
[2022-10-31 01:38] LABS: Adenovirus Not Detected (NOT DETECT); Chlamydia Pneumoniae Not Detected (NOT DETECT); Coronavirus 229E,HKU1,NL63,OC4 Not Detected (NOT DETECT); Human Metapneumovirus Not Detected (NOT DETECT); Human Rhinovirus/Enterovirus Not Detected (NOT DETECT); Influenza A Not Detected (NOT DETECT); Influenza A H1 Not Detected (NOT DETECT); Influenza A H1-2009 Not Detected (NOT DETECT); Influenza A H3 Not Detected (NOT DETECT); Influenza B Not Detected (NOT DETECT); Mycoplasma Pneumoniae Not Detected (NOT DETECT); Parainfluenza Virus Type 1 Not Detected (NOT DETECT); Parainfluenza Virus Type 2 Not Detected (NOT DETECT); Parainfluenza Virus Type 3 Not Detected (NOT DETECT); Parainfluenza Virus Type 4 Not Detected (NOT DETECT); Respiratory Syncytial Virus A Not Detected (NOT DETECT); Respiratory Syncytial Virus B Not Detected (NOT DETECT); SARS-COV-2 Detected (NOT DETECT)
[2022-10-31] MEDS: vancomycin 1,000 MG in sodium chloride 0.9% 250 ML 250 MG IV (02:41)
[2022-10-31] MEDS: ipratropium-albuterol 3 mL Neb INHALATION ×6 (03:19→23:47)
[2022-10-31 03:25] LABS: ABG PCO2 36.2 mmHg (35-45); ABG PH Result 7.46 (7.35-7.45); Alveolar-Arterial Oxygen Gradi 16.3 mmHg (5-10); Arterial Blood Gas Hematocrit 23.9 % (42-52); Base Excess ABG 1.8 mmol/L (-2.0-2.0); Blood Gas Allen Test Pos; Blood Gas Sample Site Radial, right; Blood Gas Sample Type Arterial; Blood Gas Tidal Volume 0.48; HCO3 ABG 25.7 mmol/L (22-26); HGB O2 Sat 97.6 % (95-100); Ionized Calcium Level - ABG 1.2 mmol/L (1.1-1.4); Methemoglobin 0.7 % (0.4-1.5); Oxygen Device VENT; Oxygen Saturation ABG 99.3; Potassium Level - ABG 3.1 mmol/L (3.5-5.0); Total Hemoglobin 7.8 g/dL (14-18)
[2022-10-31 04:56] LABS: Basophils % 0.2 %; Hematocrit 26.1 % (42.0-52.0); Hemoglobin 7.8 g/dL (11.7-16.6); Lymphocytes # 0.2 10^3/uL (0.8-4.8); Lymphocytes % 1.3 %; Mean Corpuscular HGB Conc 29.9 g/dL (30.0-36.0); Mean Corpuscular Hemoglobin 26.6 pg (28.0-34.0); Mean Corpuscular Volume 89.1 fl (80-94); Mean Platelet Volume 10.7 fL (7.4-10.4); Monocytes # 0.9 10^3/uL (0.2-0.9); Monocytes % 5.5 %; Neutrophils # 14.27 10^3/uL (1.8-7.7); Nucleated Red Blood Cells # 0.1 /100WBC; Nucleated Red Blood Cells % 0.4 %; Platelet Count 360 10^3/cmm (130-400); Red Blood Count 2.93 10^6/uL (4.1-5.3); Red Cell Distribution Width 17.3 % (12.1-15.1); White Blood Count 15.7 10^3/uL (4.0-10.0)
[2022-10-31 05:31] LABS: NT Pro B Type Natriuretic Pept 3547 pg/mL (0-125); Procalcitonin 10.98 ng/mL (0-0.5)
[2022-10-31] MEDS: piperacillin-tazobactam 3.375 GM in sodium chloride 0.9% (plus) 50 ML IV ×3 (05:32→22:39)
[2022-10-31 05:45] LABS: Alanine Aminotransferase 48 U/L (0-41); Albumin Level 1.9 g/dL (3.5-5.2); Alkaline Phosphatase 109 U/L (40-130); Anion Gap 13.4 (5-19); Aspartate Amino Transferase 60 U/L (0-40); Blood Urea Nitrogen 11 mg/dL (8-23); Calcium 8.1 mg/dL (8.5-10.5); Carbon Dioxide 22 mmol/L (22-29); Chloride 103 mmol/L (98-107); Globulin 2.4 g/dL (1.3-4.6); Glucose 103 mg/dL (65-115); Magnesium 1.6 mg/dL (1.7-2.3); Osmolality Calculated 280 mOsm/kg (285-295); Potassium 3.4 mmol/L (3.5-5.1); Sodium 135 mmol/L (136-145); Total Bilirubin 0.4 mg/dL (0.15-1.2); Total Protein 4.3 g/dL (6.6-8.7)
--- NOTE | 2022-10-31 06:00 | USCV_ITS ---
Robbie Rodriguez Age: 72 Gender: M : 1950 Exam Date: 10/31/2022 11:26 Ordering Phys: Jluis Duffy MD Technologist: KAROL Exam Location: [facility] [place] Indication: sob BP: 87 / 52 HR: 69 Rhythm: Sinus Technical Quality: Adequate MEASUREMENTS (Male / Female) Normal Values 2D ECHO LV Diastolic Diameter PLAX 5.7 cm 4.2 - 5.9 / 3.9 - 5.3 cm LV Systolic Diameter PLAX 4.0 cm IVS Diastolic Thickness 0.7 cm 0.6 - 1.0 / 0.6 - 0.9 cm IVS Systolic Thickness 1.0 cm LVPW Diastolic Thickness 0.7 cm 0.6 - 1.0 / 0.6 - 0.9 cm LVPW Systolic Thickness 1.1 cm LVOT Diameter 2.1 cm LV Ejection Fraction 2D Teich 57.6 % LV Ejection Fraction MOD 2C 47.8 % LV Ejection Fraction 2C AL 46.3 % LA Diameter 3.3 cm M-MODE Aortic Annulus Diameter 3.2 cm LA Ao Ratio MM 1.2 MV E Point Septal Separation 1.0 cm DOPPLER AV Peak Velocity 265.8 cm/s LVOT Peak Velocity 114.0 cm/s AV Area Cont Eq vti 1.7 cm squared AV Area Cont Eq pk 1.5 cm squared MV Area PHT 2.9 cm squared Mitral E to A Ratio 0.8 MV E' Velocity 51.5 cm/s Mitral E to MV E' Ratio 13.6 Mitral E to LV E' Lateral Ratio 12.2 Mitral E to LV E' Septal Ratio 15.4 TR Peak Velocity 255.6 cm/s TR Peak Gradient 26.1 mmHg Right Atrial Pressure 6.0 mmHg Pulmonary Artery Systolic Pressu 32.1 mmHg PV Peak Velocity 116.0 cm/s FINDINGS Left Ventricle Left ventricle is normal in size. LV systolic function is normal with EF of 55 to 60%. No regional wall motion abnormalities are seen. Grade 1 diastolic dysfunction Right Ventricle RV is normal in size and function Right Atrium Normal in size Left Atrium Normal in size Mitral Valve Structurally normal mitral valve. Trace mitral regurgitation. Aortic Valve Aortic valve is thickened. Mild aortic stenosis. Aortic valve area is 1.38 cm squared and mean gradient across aortic valve is 17.5 mmHg. Mild aortic regurgitation Tricuspid Valve Mild tricuspid regurgitation. RVSP is 30 to 35 mmHg. Pulmonic Valve Not well visualized Pericardium Normal Aorta Normal in size IVC Appears to be normal CONCLUSIONS LV systolic function is normal with EF 55 to 60%. Grade 1 diastolic dysfunction Trace mitral regurgitation Mild aortic stenosis. Mild aortic regurgitation Mild tricuspid regurgitation No comparison studies are available Joaquim Bernardo MD (Electronically Signed) Final Date: 31 October 2022 19:16 S
[2022-10-31] MEDS: propofol 1,000 MG/100 ML INJ 15.24 MG IV (06:20)
[2022-10-31] MEDS: budesonide 0.5 mg/2 mL Neb INHALATION ×2 (07:58→20:20)
[2022-10-31] MEDS: atorvastatin 40 mg Tablet PO (08:28)
[2022-10-31] MEDS: aspirin 81 mg Chew Tablet PO (08:28)
--- NOTE | 2022-10-31 08:45 | PC.NURSE ---
Dr Duffy here .. propofol off awaken for attempt to extubate today .
[2022-10-31] MEDS: dexmedetomidine 400 MCG in sodium chloride 0.9% (100 ml) 100 ML 8.74 MCG IV ×2 (09:12→18:23)
[2022-10-31] MEDS: vancomycin 1,000 MG in sodium chloride 0.9% 250 ML 200 MG IV (14:37)
[2022-10-31] MEDS: levofloxacin-dextrose 5 % 750 MG/150 ML PREMIX 100 MG IV (15:39)
--- NOTE | 2022-10-31 16:15 | P.PN_ITS ---
Subjective Subjective: Patient was seen and examined this morning, he was afebrile overnight, white cell count has decreased to 15.7, AM ABG : Was reviewed: pH 7.46, PCO2 36, PO2 117, FiO2 40%:P/F: 292, patient tolerated the weaning trial well. Was extubated to heated high flow: Currently saturating well on 40% FiO2 at 30 L. Currently requiring Precedex to help him with anxiety, and to be compliant with the heated high flow. LFTs improving. Medications: Medication Review Details: Generic Name Dose Route Start Last Admin Trade Name Freq PRN Reason Stop Dose Admin Albuterol/Ipratrop ium 3 ml 10/30/22 16:00 10/31/22 16:12 Ipratropium-Albu terol 3 Ml Neb INHALATION 3 ml Q4H.RESPIRATORY S CH Administration Aspirin 81 mg 10/31/22 08:00 10/31/22 08:28 Aspirin 81 Mg Ch ew Tablet PO 81 mg DAILY@0800 MICHELLE Administration Atorvastatin Calci um 40 mg 10/31/22 09:00 10/31/22 08:28 Atorvastatin 40 Mg Tablet PO 40 mg DAILY MICHELLE Administration Budesonide 0.5 mg 10/30/22 20:00 10/31/22 07:58 Budesonide 0.5 M g/2 Ml Neb INHALATION 0.5 mg BID.RESPIRATORY S CH Administration Enoxaparin Sodium 60 mg 10/31/22 01:00 10/31/22 14:36 Enoxaparin 60 Mg /0.6 Ml Syringe SUBCUT 60 mg Q12H MICHELLE Administration Propofol 1,000 mg in 100 m ls @ 0 mls/hr 10/30/22 08:30 10/31/22 08:49 Diprivan IV 0 mcg/kg/min .Q0M MICHELLE 0 mls/hr Titration Protocol Per Protocol Diltiazem HCl 100 mg/ Sodium 100 mls @ 0 mls/h r 10/30/22 08:30 10/30/22 09:02 Chloride IV 0 mg/hr .Q0M MICHELLE 0 mls/hr Titration Protocol Per Protocol Norepinephrine Bit artrate 4 mg 254 mls @ 0 mls/h r 10/30/22 11:15 10/30/22 23:14 / Dextrose IV Infused .Q0M MICHELLE Titration Protocol Per Protocol Piperacillin Sod/T azobactam 50 mls @ 12.5 mls /hr 10/30/22 14:00 10/31/22 14:37 Sod 3.375 gm/ So dium Chloride IV 12.5 mls/hr Q8H MICHELLE Administration Protocol Vancomycin HCl 1,0 00 mg/ 250 mls @ 250 mls /hr 10/30/22 15:00 10/31/22 16:04 Sodium Chloride IV Infused Q12H MICHELLE Infusion Levofloxacin/Dextr ose 750 mg in 150 mls @ 100 mls/hr 10/30/22 16:00 10/31/22 15:39 Levaquin-D5w IV 100 mls/hr Q24H MICHELLE Administration Protocol Norepinephrine Bit artrate 8 mg 508 mls @ 0 mls/h r 10/30/22 18:45 10/31/22 06:11 / Dextrose IV 2 mcg/min .Q0M MICHELLE 7.62 mls/hr Titration Protocol Per Protocol Dexmedetomidine HC l 400 mcg/ 104 mls @ 0 mls/h r 10/31/22 08:45 10/31/22 09:12 Sodium Chloride IV 0.5 mcg/kg/hr .Q0M MICHELLE 8.74 mls/hr Administration Protocol Per Protocol Vitals/I&O/Wt Last Vital Signs Temp 98.2 F 10/31/22 04:00 Pulse 58 L 10/31/22 16:10 Resp 20 H 10/31/22 16:10 BP 90/55 10/31/22 12:15 Pulse Ox 94 10/31/22 16:10 O2 Del Method 10/31/22 16:10 O2 Flow Rate 30 10/31/22 16:10 FiO2 40 10/31/22 16:10 10/31/22 10/31/22 10/31/22 06:59 14:59 22:59 Intake Total 764.270 / 2453.766 85.234 / 85.234 250 / 335.234 Output Total 350 / 350 Balance 414.270 / 2103.766 85.234 / 85.234 250 / 335.234 Weight last 48 hrs Weight 67.245 kg Weight 64.127 kg Weight 72.575 kg Physical Exam HENMT: COMMON NORMALS: normocephalic and atraumatic HEAD & SCALP: normocephalic and atraumatic Eye: GENERAL EYE: appearance normal, both eyes and all related structures Chest: COMMONS NORMALS: normal inspection of the chest and normal palpation of entire chest wall CHEST: Yes Symmetrical chest wall rise Resp: OTHER: Coarse breath sound bilateral Cardio: COMMON NORMALS: regular rate, regular rhythm, S1 normal heart sound present, S2 normal heart sound present and Peripheral pulses 2+ throughout RATE: regular rate RHYTHM: regular rhythm HEART SOUNDS: S1 normal heart sound present and S2 normal heart sound present PERIPHERAL PULSES: Peripheral pulses 2+ throughout OTHER: ESM in aortic area GI: COMMON NORMALS: Normal to inspection, nondistended, normoactive bowel sounds present, Soft to palpation, non-tender, No hepatosplenomegaly present and no masses AUSCULTATION: Yes normoactive bowel sounds PALPATION: Yes Soft to palpation and Yes No hepatosplenomegaly present RECTAL EXAM: Yes deferred Extremity: COMMON NORMALS: no clubbing, cyanosis or edema and no pedal edema Urinary Catheter Management: Nunez: Cath Placed During This Visit: yes Reason for Continuing Indwelling Catheter: Accurate Measurement of Urinary Output in Critically Ill Patients Urinary Catheter Date of Insertion: 10/30/22 Data 10/31/22 04:10 10/31/22 04:10 Micro: Microbiology 10/30/22 17:50 MRSA Culture - Final Nose 10/30/22 08:50 Gram Stain - Final Sputum - Endotracheal Tube Aspirate Sputum Culture - Preliminary 10/30/22 08:44 Blood Culture - Preliminary Blood NEGATIVE TO DATE 10/30/22 08:39 Blood Culture - Preliminary Blood NEGATIVE TO DATE 10/30/22 17:50 Legionella Urinary Antigen - Final Urine,Clean Catch Bacterial Antigens - Final A&P Assessment and plan (1) Pneumonia: (2) DVT (deep venous thrombosis): (3) Diastolic CHF: Plan 72 year old male with past medical history of aortic stenosis, WaldenStrom macroglobulinemia, DVT on Xarelto at home, HFpEF, COVID-19 pneumonia in March, for which he was intubated, likely for about a week, and then had a prolonged hospital recovery course, was brought in from home today for management of respiratory distress. Currently intubated sedated on mechanical ventilation. Assessment: Acute on chronic hypoxic respiratory failure, secondary to pneumonia NSTEMI likely type II secondary to A. fib with RVR, acute hypoxia, A. fib with RVR Possible sepsis: Patient has elevated WBC, complaining of intermittent subjective fever at home, signs of endorgan dysfunction, elevated lactic acid, though could be secondary to acute hypotension secondary to A. fib with RVR, tachypneic tachycardic,patient has received fluid boluses in the ER. Transaminitis: Possibly secondary to transient hypotension: Shock liver History of COVID-19 pneumonia History of DVT History of heart failure with preserved ejection fraction Aortic stenosis Anemia: Likely ACD Plan: Follow blood culture Urine culture Urine Legionella antigen: Negative Bacterial antigen panel: Negative MRSA PCR: Negative Follow respiratory viral panel: Persistently positive COVID PCR Sputum gram stain and culture: Rare white blood cells, no organisms seen Follow 2D echo Patient is currently converted to sinus rhythm, Cardizem drip has been discontinued, Currently on vancomycin as well as Zosyn and levofloxacin for double Pseudomonas coverage Levofloxacin will also provide atypical coverage Continue Levophed, titrate to maintain MAP greater than 65 Currently on therapeutic anticoagulation with Lovenox, will also cover him for history of DVT, Continue DuoNebs, continue budesonide inhaler Currently on propofol for sedation Monitor ABG( P/F ratio) , x-ray chest Was on mechanical ventilation ( VC/AC, tidal volume 480, PEEP of 8, FiO2 40%,R/R: 14, Ti: 0.9,) Monitor CMP, possible ultrasound abdomen. Monitor intake output charting Daily weight Monitor electrolytes We will keep n.p.o. for now: We will plan to initiate tube feed CODE STATUS: Full code DVT prophylaxis not needed on therapeutic anticoagulation Attestations Medical Necessity Statement*: Patient is hospital for management of respiratory failure pneumonia. Critical Care Time: The high probability of a clinically significant, sudden or life threatening deterioration of the patient's [] system(s) required my full and direct attention, intervention and personal management. The critical care time is as shown. This time is in addition to time spent performing any reported procedures but includes the following: [x] Data and vital sign review and interpretation [x] Patient assessment, examination and intervention [x] Documentation [x] Medication orders and management Critical Care Time (min): 45 Coding Level of Care Code Acute Energy And Sustainability Manager for [facility] Fwd Exam Detailed Diagnoses Pneumonia J18.9 DVT (deep venous thrombosis) I82.409 Diastolic CHF I50.30
[2022-10-31] MEDS: lidocaine 1% 5 ML in potassium chloride premix 100 ML 50 ML IV (16:43)
[2022-10-31] MEDS: albumin 12.5 GM/50 ML VIAL IV (16:44)
[2022-11-01] VITALS (54 sets, daily range): BP systolic 74–138; BP diastolic 49–95; PULSE 52–104; RESP 19–38; TEMP 36.3–36.6; O2SAT 80–100
[2022-11-01] MEDS: enoxaparin 60 mg/0.6 mL Syringe SUBCUT ×2 (01:45→14:00)
[2022-11-01] MEDS: vancomycin 1,000 MG in sodium chloride 0.9% 250 ML 200 MG IV ×2 (02:59→15:26)
[2022-11-01 03:03] LABS: Hematocrit 26.1 % (42.0-52.0); Hemoglobin 7.8 g/dL (11.7-16.6); Lymphocytes # 0.1 10^3/uL (0.8-4.8); Lymphocytes % 1.7 %; Mean Corpuscular HGB Conc 29.9 g/dL (30.0-36.0); Mean Corpuscular Hemoglobin 26.4 pg (28.0-34.0); Mean Corpuscular Volume 88.5 fl (80-94); Mean Platelet Volume 10.8 fL (7.4-10.4); Monocytes # 0.4 10^3/uL (0.2-0.9); Monocytes % 5.4 %; Neutrophils # 7.37 10^3/uL (1.8-7.7); Neutrophils % 90.8 %; Nucleated Red Blood Cells % 0.2 %; Platelet Count 284 10^3/cmm (130-400); Red Blood Count 2.95 10^6/uL (4.1-5.3); Red Cell Distribution Width 17.4 % (12.1-15.1); White Blood Count 8.1 10^3/uL (4.0-10.0)
[2022-11-01] MEDS: ipratropium-albuterol 3 mL Neb INHALATION ×6 (03:24→23:04)
[2022-11-01 03:27] LABS: Alanine Aminotransferase 36 U/L (0-41); Albumin Level 2.4 g/dL (3.5-5.2); Alkaline Phosphatase 106 U/L (40-130); Anion Gap 13.2 (5-19); Aspartate Amino Transferase 34 U/L (0-40); Blood Urea Nitrogen 9 mg/dL (8-23); Calcium 8.7 mg/dL (8.5-10.5); Carbon Dioxide 25 mmol/L (22-29); Chloride 112 mmol/L (98-107); Globulin 2.3 g/dL (1.3-4.6); Glucose 95 mg/dL (65-115); Osmolality Calculated 302 mOsm/kg (285-295); Potassium 3.2 mmol/L (3.5-5.1); Sodium 147 mmol/L (136-145); Total Bilirubin 0.5 mg/dL (0.15-1.2); Total Protein 4.7 g/dL (6.6-8.7)
[2022-11-01 03:31] LABS: ABG PCO2 33.6 mmHg (35-45); ABG PH Result 7.49 (7.35-7.45); Alveolar-Arterial Oxygen Gradi 42.2 mmHg (5-10); Arterial Blood Gas Hematocrit 23.4 % (42-52); Blood Gas Allen Test Pos; Blood Gas Sample Site Radial, right; Blood Gas Sample Type Arterial; Carboxyhemoglobin 1.3 %THgb (0.4-20.1); HCO3 ABG 25.4 mmol/L (22-26); HGB O2 Sat 88.6 % (95-100); Ionized Calcium Level - ABG 1.2 mmol/L (1.1-1.4); Methemoglobin 0.5 % (0.4-1.5); Oxygen Device NC; Oxygen Saturation ABG 90.1; PO2 ABG 59.4 mmHg (80.0-100.0); Potassium Level - ABG 3.2 mmol/L (3.5-5.0); Total Hemoglobin 7.6 g/dL (14-18)
[2022-11-01] MEDS: piperacillin-tazobactam 3.375 GM in sodium chloride 0.9% (plus) 50 ML IV ×3 (05:28→22:43)
[2022-11-01] MEDS: dexmedetomidine 400 MCG in sodium chloride 0.9% (100 ml) 100 ML 10.49 MCG IV (05:29)
--- NOTE | 2022-11-01 06:51 | PC.NURSE ---
Addendum entered by Ilene Rocha RN 11/01/22 06:52: 64ml propofol waste witnessed. Original Note: wasted propofol 64ml witnessed by Nurse MALLORIE Odom
[2022-11-01] MEDS: budesonide 0.5 mg/2 mL Neb INHALATION ×2 (07:50→20:24)
[2022-11-01] MEDS: ziprasidone 20 mg/mL SDV 10 MG IM (07:58)
[2022-11-01] MEDS: FUROsemide 10 mg/mL SDV 4mL 20 MG IVP (07:59)
[2022-11-01] MEDS: dextrose 5%-sod chloride 0.9% 1,000 ML 30 ML IV (07:59)
[2022-11-01] MEDS: metoprolol tartrate 1 mg/1 mL SDV 5 mL 5 MG IVP ×2 (08:20→08:25)
--- NOTE | 2022-11-01 08:52 | PC.NURSE ---
This nurse noticed patients heart rate was in the 150's and o2 was in 70's. Dr. Duffy at bedside. HHF turned up at 100%. Geodon given per orders. Heart rate was noted to be at 200. Crash cart at bedside and pads placed on patient. 0816- 6mg adenosine 0818- 12mg adenosine 0820-5mg metoprolol 0825- 5mg metoprolol and levophed started at 2. Heart rate down to 110's and 02 in 90's. at bedside and updated.
--- NOTE | 2022-11-01 13:51 | PM.PN ---
Subjective Subjective: Patient was seen and examined this morning, went into SVT this morning with heart rate in 200s, resulting in hypotension as well as desaturation,received Adenosine x2 6 and 12, followed by metoprolol tartrate x2 5 mg IV. Off Precedex patient is extremely agitated, removes nasal cannula. Even on Precedex sometimes his heart rate drops into 40s, requiring the need to discontinue Precedex. We have given him Geodon 10 mg IM times 1 dose today. Patient also received 20 mg IV Lasix x1 dose today with good urine output: Around 2.[address] chest suggestive of pulmonary edema. When Patient is compliant with heated high flow:He maintains a very decent saturation at 60% FiO2 and 50l flow rate.Has also been started on D5 water 30 cc an hour, as serum sodium this morning is 147. WBC count has normalized. AM ABG: pH 7.49, PCO2 33, PO2 59, FiO2 60%. Medications: Medication Review Details: Generic Name Dose Route Start Last Admin Trade Name Freq PRN Reason Stop Dose Admin Albuterol/Ipratrop ium 3 ml 10/30/22 16:00 11/01/22 11:30 Ipratropium-Albu terol 3 Ml Neb INHALATION 3 ml Q4H.RESPIRATORY S CH Administration Aspirin 81 mg 10/31/22 08:00 11/01/22 08:34 Aspirin 81 Mg Ch ew Tablet PO Not Given DAILY@0800 MICHELLE Atorvastatin Calci um 40 mg 10/31/22 09:00 11/01/22 08:34 Atorvastatin 40 Mg Tablet PO Not Given DAILY MICHELLE Budesonide 0.5 mg 10/30/22 20:00 11/01/22 07:50 Budesonide 0.5 M g/2 Ml Neb INHALATION 0.5 mg BID.RESPIRATORY S CH Administration Enoxaparin Sodium 60 mg 10/31/22 01:00 11/01/22 01:45 Enoxaparin 60 Mg /0.6 Ml Syringe SUBCUT 60 mg Q12H MICHELLE Administration Diltiazem HCl 100 mg/ Sodium 100 mls @ 0 mls/h r 10/30/22 08:30 10/30/22 09:02 Chloride IV 0 mg/hr .Q0M MICHELLE 0 mls/hr Titration Protocol Per Protocol Norepinephrine Bit artrate 4 mg 254 mls @ 0 mls/h r 10/30/22 11:15 10/30/22 23:14 / Dextrose IV Infused .Q0M MICHELLE Titration Protocol Per Protocol Piperacillin Sod/T azobactam 50 mls @ 12.5 mls /hr 10/30/22 14:00 11/01/22 05:28 Sod 3.375 gm/ So dium Chloride IV 12.5 mls/hr Q8H MICHELLE Administration Protocol Vancomycin HCl 1,0 00 mg/ 250 mls @ 250 mls /hr 10/30/22 15:00 11/01/22 06:43 Sodium Chloride IV Infused Q12H MICHELLE Infusion Levofloxacin/Dextr ose 750 mg in 150 mls @ 100 mls/hr 10/30/22 16:00 10/31/22 17:39 Levaquin-D5w IV Infused Q24H MICHELLE Infusion Protocol Norepinephrine Bit artrate 8 mg 508 mls @ 0 mls/h r 10/30/22 18:45 10/31/22 06:11 / Dextrose IV 2 mcg/min .Q0M MICHELLE 7.62 mls/hr Titration Protocol Per Protocol Dexmedetomidine HC l 400 mcg/ 104 mls @ 0 mls/h r 10/31/22 08:45 11/01/22 06:44 Sodium Chloride IV 0.7 mcg/kg/hr .Q0M MICHELLE 12.24 mls/hr Titration Protocol Per Protocol Vitals/I&O/Wt Last Vital Signs Temp 97.4 F L 11/01/22 01:00 Pulse 65 11/01/22 13:00 Resp 24 H 11/01/22 13:00 BP 109/60 11/01/22 13:00 Pulse Ox 100 11/01/22 13:00 O2 Del Method 11/01/22 11:30 O2 Flow Rate 50 11/01/22 11:32 FiO2 70 11/01/22 11:32 10/31/22 11/01/22 11/01/22 22:59 06:59 14:59 Intake Total 622.452 / 707.686 754.923 / 1462.609 Output Total 300 / 300 2300 / 2300 Balance 322.452 / 407.686 754.923 / 1162.609 -2300 / -2300 Weight last 48 hrs Weight 68.266 kg Weight 67.245 kg Weight 64.127 kg Physical Exam Narrative: Intubated sedated on mechanical ventilation HENMT: COMMON NORMALS: normocephalic and atraumatic HEAD & SCALP: normocephalic and atraumatic Eye: COMMON NORMALS: no scleral icterus GENERAL EYE: appearance normal, both eyes and all related structures Chest: COMMONS NORMALS: normal inspection of the chest and normal palpation of entire chest wall CHEST: Yes Symmetrical chest wall rise Resp: OTHER: Coarse breath sound bilateral Cardio: COMMON NORMALS: regular rate, regular rhythm, S1 normal heart sound present, S2 normal heart sound present and Peripheral pulses 2+ throughout RATE: regular rate RHYTHM: regular rhythm HEART SOUNDS: S1 normal heart sound present and S2 normal heart sound present PERIPHERAL PULSES: Peripheral pulses 2+ throughout OTHER: ESM in aortic area GI: COMMON NORMALS: Normal to inspection, nondistended, normoactive bowel sounds present, Soft to palpation, non-tender, No hepatosplenomegaly present and no masses AUSCULTATION: Yes normoactive bowel sounds PALPATION: Yes Soft to palpation and Yes No hepatosplenomegaly present RECTAL EXAM: Yes deferred Extremity: COMMON NORMALS: no clubbing, cyanosis or edema and no pedal edema Urinary Catheter Management: Nunez: Cath Placed During This Visit: yes Reason for Continuing Indwelling Catheter: Accurate Measurement of Urinary Output in Critically Ill Patients Urinary Catheter Date of Insertion: 10/30/22 Data 11/01/22 02:39 11/01/22 02:39 Micro: Microbiology 10/30/22 08:50 Gram Stain - Final Sputum - Endotracheal Tube Aspirate Sputum Culture - Final 10/30/22 17:50 MRSA Culture - Final Nose 10/30/22 08:44 Blood Culture - Preliminary Blood NEGATIVE TO DATE 10/30/22 08:39 Blood Culture - Preliminary Blood NEGATIVE TO DATE A&P Assessment and plan (1) Pneumonia: (2) DVT (deep venous thrombosis): (3) Diastolic CHF: Plan 72 year old male with past medical history of aortic stenosis, WaldenStrom macroglobulinemia, DVT on Xarelto at home, HFpEF, COVID-19 pneumonia in March, for which he was intubated, likely for about a week, and then had a prolonged hospital recovery course, was brought in from home today for management of respiratory distress. Currently intubated sedated on mechanical ventilation. Assessment: Acute on chronic hypoxic respiratory failure, secondary to pneumonia NSTEMI likely type II secondary to A. fib with RVR, acute hypoxia, A. fib with RVR Sepsis: Patient has elevated WBC, complaining of intermittent subjective fever at home, signs of endorgan dysfunction, elevated lactic acid, though could be secondary to acute hypotension secondary to A. fib with RVR, tachypneic tachycardic,patient has received fluid boluses in the ER. Transaminitis: Possibly secondary to transient hypotension: Shock liver History of COVID-19 pneumonia: Persistent positive COVID PCR SVT: History of DVT History of heart failure with preserved ejection fraction Aortic stenosis Anemia: Likely ACD Plan: Follow blood culture:NTD Urine culture: Urine Legionella antigen: Negative Bacterial antigen panel: Negative MRSA PCR: Negative Follow respiratory viral panel: Procalcitonin:10.98 Persistently positive COVID PCR Sputum gram stain and culture: Rare white blood cells, no organisms seen 2D echo: LV systolic function is normal with EF of 55 to 60% grade 1 diastolic dysfunction, mild aortic stenosis. Patient is currently converted to sinus rhythm, Cardizem drip has been discontinued, Currently on vancomycin as well as Zosyn and levofloxacin for double Pseudomonas coverage Levofloxacin will also provide atypical coverage Continue Levophed, titrate to maintain MAP greater than 65 Currently on therapeutic anticoagulation with Lovenox, will also cover him for history of DVT, Continue DuoNebs, continue budesonide inhaler Currently on propofol for sedation Monitor ABG( P/F ratio) , x-ray chest Was on mechanical ventilation ( VC/AC, tidal volume 480, PEEP of 8, FiO2 40%,R/R: 14, Ti: 0.9,) Monitor CMP, possible ultrasound abdomen. Monitor intake output charting Daily weight Monitor electrolytes We will keep n.p.o. for now: We will plan to initiate tube feed CODE STATUS: Full code DVT prophylaxis not needed on therapeutic anticoagulation Disposition: If patient will do well on heated high flow we will plan to send him to LTACH. Attestations Medical Necessity Statement*: Patient is still in hospital for management respiratory failure Time Spent in Patient Care: Greater than 35 minutes (>than 50% of time spent in counselling and/or direct pt care on unit). Critical Care Time: The high probability of a clinically significant, sudden or life threatening deterioration of the patient's [] system(s) required my full and direct attention, intervention and personal management. The critical care time is as shown. This time is in addition to time spent performing any reported procedures but includes the following: [x] Data and vital sign review and interpretation [x] Patient assessment, examination and intervention [x] Documentation [x] Medication orders and management Critical Care Time (min): 90 Coding Level of Care Code Acute Branch Employment Coordinator for [facility] Fwd Exam Detailed Diagnoses Pneumonia J18.9 DVT (deep venous thrombosis) I82.409 Diastolic CHF I50.30
[2022-11-01] MEDS: dextrose 5% 1,000 ML 30 ML IV (13:59)
[2022-11-01 15:09] LABS: Vancomycin Trough 14.4 ug/mL (10-15)
[2022-11-01] MEDS: lidocaine 1% 5 ML in potassium chloride premix 100 ML 50 ML IV (15:25)
[2022-11-01] MEDS: levofloxacin-dextrose 5 % 750 MG/150 ML PREMIX 100 MG IV (15:26)
[2022-11-01] MEDS: dexmedetomidine 400 MCG in sodium chloride 0.9% (100 ml) 100 ML 8.74 MCG IV (17:18)
[2022-11-02] VITALS (65 sets, daily range): BP systolic 88–123; BP diastolic 45–73; PULSE 51–111; RESP 17–48; TEMP 36.3–38; O2SAT 78–99
[2022-11-02] MEDS: enoxaparin 60 mg/0.6 mL Syringe SUBCUT ×2 (01:40→14:59)
[2022-11-02] MEDS: vancomycin 1,000 MG in sodium chloride 0.9% 250 ML 200 MG IV ×2 (02:10→15:00)
[2022-11-02 03:24] LABS: Basophils % 0.1 %; Hematocrit 25.3 % (42.0-52.0); Hemoglobin 7.5 g/dL (11.7-16.6); Lymphocytes # 0.1 10^3/uL (0.8-4.8); Lymphocytes % 0.8 %; Mean Corpuscular HGB Conc 29.6 g/dL (30.0-36.0); Mean Corpuscular Hemoglobin 26.4 pg (28.0-34.0); Mean Corpuscular Volume 89.1 fl (80-94); Monocytes # 0.5 10^3/uL (0.2-0.9); Monocytes % 4.4 %; Neutrophils # 9.98 10^3/uL (1.8-7.7); Neutrophils % 93.3 %; Nucleated Red Blood Cells % 0 %; Platelet Count 266 10^3/cmm (130-400); Red Blood Count 2.84 10^6/uL (4.1-5.3); Red Cell Distribution Width 17.6 % (12.1-15.1); White Blood Count 10.7 10^3/uL (4.0-10.0)
--- NOTE | 2022-11-02 03:31 | PC.NURSE ---
Patient has temp of 100.[address] reddy notified with orders to change Tylenol tablet to liquid.
[2022-11-02] MEDS: dexmedetomidine 400 MCG in sodium chloride 0.9% (100 ml) 100 ML 12.24 MCG IV (03:38)
[2022-11-02] MEDS: dextrose 5% 1,000 ML 30 ML IV (03:48)
[2022-11-02 03:55] LABS: Alanine Aminotransferase 26 U/L (0-41); Albumin Level 2.1 g/dL (3.5-5.2); Alkaline Phosphatase 105 U/L (40-130); Anion Gap 13.5 (5-19); Aspartate Amino Transferase 21 U/L (0-40); Blood Urea Nitrogen 9 mg/dL (8-23); Calcium 8.2 mg/dL (8.5-10.5); Carbon Dioxide 25 mmol/L (22-29); Globulin 2.4 g/dL (1.3-4.6); Glucose 156 mg/dL (65-115); Osmolality Calculated 304 mOsm/kg (285-295); Sodium 146 mmol/L (136-145); Total Bilirubin 0.6 mg/dL (0.15-1.2); Total Protein 4.5 g/dL (6.6-8.7)
[2022-11-02] MEDS: ipratropium-albuterol 3 mL Neb INHALATION ×5 (03:58→19:51)
[2022-11-02 04:08] LABS: Chloride 110 mmol/L (98-107)
[2022-11-02 04:32] LABS: Potassium 2.5 mmol/L (3.5-5.1)
--- NOTE | 2022-11-02 05:00 | XR_ITS ---
WS: [id number] EXAMINATION: XR chest 1V portable [id number] REASON FOR EXAM: Pneumonia COMPARISON: 10/30/2022 ORDER DATE: 11/02/2022 4:42 AM TECHNIQUE: A single, portable frontal chest x-ray was obtained. X-RAY FINDINGS: The endotracheal tube is been removed since previous. Left Port-A-Cath again noted. Diffusely increas ed interstitial alveolar opacities have become more prominent since the previous study with small nicolás ateral pleural effusions obscuring the hemidiaphragm outlines.. XR/XR chest 1V portable [id number] IMPRESSION: Increased pulmonary edema and development of small effusion since previous rubi dy.
[2022-11-02 05:11] LABS: Magnesium 1.6 mg/dL (1.7-2.3)
[2022-11-02] MEDS: piperacillin-tazobactam 3.375 GM in sodium chloride 0.9% (plus) 50 ML IV ×3 (05:16→21:36)
[2022-11-02] MEDS: lidocaine 1% 5 ML in potassium chloride premix 100 ML 25 ML IV (05:16)
[2022-11-02] MEDS: acetaminophen 650 mg/20.3 mL UDC PO (05:17)
--- NOTE | 2022-11-02 06:08 | PC.NURSE ---
Patient rapidly desat multiple times through the night to mid to high 70's requiring fio2 titrated up to 100 to recover. Taking up to 45 minutes at a time to recover. Max temp 100.4 Axillary. Patient was bathed this shift and tuned Q2H.
[2022-11-02] MEDS: budesonide 0.5 mg/2 mL Neb INHALATION ×2 (08:21→19:51)
[2022-11-02] MEDS: magnesium sulfate premix 2 GM/50 ML PIGGYBACK IV (09:41)
[2022-11-02] MEDS: FUROsemide 10 mg/mL SDV 2mL 20 MG IVP ×2 (09:41→21:35)
--- NOTE | 2022-11-02 11:30 | PC.SOCIAL ---
Imm update Imm updated at bedside with and patient. Copy of page 2 provided. patient and verbalized understanding. Copy in chart initialed, dated and timed.
--- NOTE | 2022-11-02 12:51 | PM.PN ---
Subjective Subjective: Patient was seen and examined this morning, continues to be on heated high flow, requiring close to 60% FiO2, 50 L/min flow, has been afebrile, good urine output with Lasix yesterday. A.m. chest x-ray done this morning: Has shown features of pulmonary vascular congestion. Patient is on therapeutic anticoagulation hemoglobin is slowly trending down, at 7.5 today, will get fecal occult blood test, hyponatremia slowly improving, hypokalemia and hypomagnesemia has been corrected. The patient is n.p.o. but much more alert and awake today, will get speech on board, as well as embossing unit operator to assist with nutritional goals. Medications: Medication Review Details: Generic Name Dose Route Start Last Admin Trade Name Freq PRN Reason Stop Dose Admin Acetaminophen 650 mg 11/02/22 03:24 11/02/22 05:17 Acetaminophen 65 0 Mg/20.3 Ml Udc PO 650 mg Q6H PRN Administration MILD PAIN OR INCR EASE TEMP Albuterol/Ipratrop ium 3 ml 10/30/22 16:00 11/02/22 11:49 Ipratropium-Albu terol 3 Ml Neb INHALATION 3 ml Q4H.RESPIRATORY S CH Administration Aspirin 81 mg 10/31/22 08:00 11/02/22 07:59 Aspirin 81 Mg Ch ew Tablet PO Not Given DAILY@0800 MICHELLE Atorvastatin Calci um 40 mg 10/31/22 09:00 11/02/22 07:59 Atorvastatin 40 Mg Tablet PO Not Given DAILY MICHELLE Budesonide 0.5 mg 10/30/22 20:00 11/02/22 08:21 Budesonide 0.5 M g/2 Ml Neb INHALATION 0.5 mg BID.RESPIRATORY S CH Administration Enoxaparin Sodium 60 mg 10/31/22 01:00 11/02/22 01:40 Enoxaparin 60 Mg /0.6 Ml Syringe SUBCUT 60 mg Q12H MICHELLE Administration Furosemide 20 mg 11/02/22 09:15 11/02/22 09:41 Furosemide 10 Mg /Ml Sdv 2ml IVP 20 mg Q12H MICHELLE Administration Diltiazem HCl 100 mg/ Sodium 100 mls @ 0 mls/h r 10/30/22 08:30 10/30/22 09:02 Chloride IV 0 mg/hr .Q0M MICHELLE 0 mls/hr Titration Protocol Per Protocol Norepinephrine Bit artrate 4 mg 254 mls @ 0 mls/h r 10/30/22 11:15 10/30/22 23:14 / Dextrose IV Infused .Q0M MICHELLE Titration Protocol Per Protocol Piperacillin Sod/T azobactam 50 mls @ 12.5 mls /hr 10/30/22 14:00 11/02/22 05:16 Sod 3.375 gm/ So dium Chloride IV 12.5 mls/hr Q8H MICHELLE Administration Protocol Vancomycin HCl 1,0 00 mg/ 250 mls @ 250 mls /hr 10/30/22 15:00 11/02/22 03:36 Sodium Chloride IV Infused Q12H MICHELLE Infusion Levofloxacin/Dextr ose 750 mg in 150 mls @ 100 mls/hr 10/30/22 16:00 11/01/22 17:18 Levaquin-D5w IV Infused Q24H MICHELLE Infusion Protocol Norepinephrine Bit artrate 8 mg 508 mls @ 0 mls/h r 10/30/22 18:45 11/01/22 07:00 / Dextrose IV 0 mcg/min .Q0M MICHELLE 0 mls/hr Titration Protocol Per Protocol Dexmedetomidine HC l 400 mcg/ 104 mls @ 0 mls/h r 10/31/22 08:45 11/02/22 05:00 Sodium Chloride IV 0.4 mcg/kg/hr .Q0M MICHELLE 6.99 mls/hr Titration Protocol Per Protocol Dextrose 1,000 mls @ 50 ml s/hr 11/01/22 08:45 11/02/22 03:48 D5w IV 30 mls/hr .Q20H MICHELLE Administration Vitals/I&O/Wt Last Vital Signs Temp 97.3 F L 11/02/22 07:00 Pulse 63 11/02/22 11:52 Resp 23 H 11/02/22 11:51 BP 96/51 11/02/22 08:30 Pulse Ox 96 11/02/22 11:51 O2 Del Method 11/02/22 11:40 O2 Flow Rate 50 11/02/22 11:51 FiO2 70 11/02/22 11:51 11/01/22 11/02/22 11/02/22 22:59 06:59 14:59 Intake Total 738.511 / 1068.501 783.655 / 1852.156 360 / 360 Output Total 600 / 2900 1600 / 1600 Balance 738.511 / -1231.499 183.655 / -1047.844 -1240 / -1240 Weight last 48 hrs Weight 65.516 kg Weight 68.266 kg Physical Exam Narrative: Alert awake HENMT: COMMON NORMALS: normocephalic and atraumatic HEAD & SCALP: normocephalic and atraumatic Eye: COMMON NORMALS: no scleral icterus GENERAL EYE: appearance normal, both eyes and all related structures Chest: COMMONS NORMALS: normal inspection of the chest and normal palpation of entire chest wall CHEST: Yes Symmetrical chest wall rise Resp: OTHER: Coarse breath sound bilateral Cardio: COMMON NORMALS: regular rate, regular rhythm, S1 normal heart sound present, S2 normal heart sound present and Peripheral pulses 2+ throughout RATE: regular rate RHYTHM: regular rhythm HEART SOUNDS: S1 normal heart sound present and S2 normal heart sound present PERIPHERAL PULSES: Peripheral pulses 2+ throughout OTHER: ESM in aortic area GI: COMMON NORMALS: Normal to inspection, nondistended, normoactive bowel sounds present, Soft to palpation, non-tender, No hepatosplenomegaly present and no masses AUSCULTATION: Yes normoactive bowel sounds PALPATION: Yes Soft to palpation and Yes No hepatosplenomegaly present RECTAL EXAM: Yes deferred Extremity: COMMON NORMALS: no clubbing, cyanosis or edema and no pedal edema Urinary Catheter Management: Nunez: Cath Placed During This Visit: yes Reason for Continuing Indwelling Catheter: Accurate Measurement of Urinary Output in Critically Ill Patients Urinary Catheter Date of Insertion: 10/30/22 Data 11/02/22 02:43 11/02/22 02:43 Micro: Microbiology 10/30/22 08:50 Gram Stain - Final Sputum - Endotracheal Tube Aspirate Sputum Culture - Final A&P Assessment and plan (1) Pneumonia: (2) DVT (deep venous thrombosis): (3) Diastolic CHF: Plan 72 year old male with past medical history of aortic stenosis, WaldenStrom macroglobulinemia, DVT on Xarelto at home, HFpEF, COVID-19 pneumonia in March, for which he was intubated, likely for about a week, and then had a prolonged hospital recovery course, was brought in from home today for management of respiratory distress. Currently intubated sedated on mechanical ventilation. Assessment: Acute on chronic hypoxic respiratory failure, secondary to pneumonia NSTEMI likely type II secondary to A. fib with RVR, acute hypoxia, A. fib with RVR Sepsis: Patient has elevated WBC, complaining of intermittent subjective fever at home, signs of endorgan dysfunction, elevated lactic acid, though could be secondary to acute hypotension secondary to A. fib with RVR, tachypneic tachycardic,patient has received fluid boluses in the ER. Transaminitis: Possibly secondary to transient hypotension: Shock liver: Resolved History of COVID-19 pneumonia: Persistent positive COVID PCR SVT: History of DVT History of heart failure with preserved ejection fraction Aortic stenosis Anemia: Likely ACD Plan: Follow blood culture:NTD Urine culture: Urine Legionella antigen: Negative Bacterial antigen panel: Negative MRSA PCR: Negative Follow respiratory viral panel: Procalcitonin:10.98 Follow repeat procalcitonin Follow FOBT Persistently positive COVID PCR Sputum gram stain and culture: Rare white blood cells, no organisms seen 2D echo: LV systolic function is normal with EF of 55 to 60% grade 1 diastolic dysfunction, mild aortic stenosis. Patient is currently converted to sinus rhythm, Cardizem drip has been discontinued, Currently on vancomycin as well as Zosyn and levofloxacin for double Pseudomonas coverage Levofloxacin will also provide atypical coverage Continue Levophed, titrate to maintain MAP greater than 65 Currently on therapeutic anticoagulation with Lovenox, will also cover him for history of DVT, Continue DuoNebs, continue budesonide inhaler Currently on propofol for sedation Monitor ABG( P/F ratio) , x-ray chest Was on mechanical ventilation ( VC/AC, tidal volume 480, PEEP of 8, FiO2 40%,R/R: 14, Ti: 0.9,) Currently on heated high flow Lasix 20 twice daily Monitor CMP, possible ultrasound abdomen. Monitor intake output charting Daily weight Monitor electrolytes We will keep n.p.o. for now: We will plan to initiate tube feed CODE STATUS: Full code DVT prophylaxis not needed on therapeutic anticoagulation Disposition: If patient will do well on heated high flow we will plan to send him to LTACH. LTAC referral has been sent. Attestations Medical Necessity Statement*: Patient is still in hospital for management of respiratory failure. Time Spent in Patient Care: Greater than 35 minutes Critical Care Time: The high probability of a clinically significant, sudden or life threatening deterioration of the patient's [] system(s) required my full and direct attention, intervention and personal management. The critical care time is as shown. This time is in addition to time spent performing any reported procedures but includes the following: [x] Data and vital sign review and interpretation [x] Patient assessment, examination and intervention [x] Documentation [x] Medication orders and management Critical Care Time (min): 45 Coding Level of Care Code Acute Mandolin Repair Person for [facility] Fwd Diagnoses Pneumonia J18.9 DVT (deep venous thrombosis) I82.409 Diastolic CHF I50.30
[2022-11-02] MEDS: dexmedetomidine 400 MCG in sodium chloride 0.9% (100 ml) 100 ML 6.99 MCG IV (16:39)
[2022-11-02] MEDS: levofloxacin-dextrose 5 % 750 MG/150 ML PREMIX 100 MG IV (16:57)
--- NOTE | 2022-11-02 17:04 | PC.NURSE ---
Patient is more alert this shift. He is able to answer yes and no questions and he is A&O to self and place.
[2022-11-02] MEDS: adenosine 3 mg/mL SDV 2mL 6 MG IVP (18:04)
[2022-11-02] MEDS: adenosine 3 mg/mL SDV 2mL 12 MG IVP (18:05)
--- NOTE | 2022-11-02 18:07 | PC.NURSE ---
PER pharmacy this nurse entered orders for Medications used for even on 11/02.
[2022-11-02] MEDS: lidocaine 1% 5 ML in potassium chloride premix 100 ML 50 ML IV (18:19)
--- NOTE | 2022-11-02 21:25 | PC.NURSE ---
HR While coughing, patient's HR increased into the 180s multiple times and his oxygen saturation decreased into the low 70s. Patient's head of bed elevated further, respiratory therapist contacted, and HHF FIO2 increased to 100%. Additionally, EKG performed which showed SR with PACs. Dr. Hoffman informed; no new orders at this time. Oxygen saturation returned to low 90s approximately 8 minutes after his coughing stopped and HR decreased to prior rates.
--- NOTE | 2022-11-02 21:45 | PC.NURSE ---
Lasix Patient's potassium level 2.5 yesterday morning, replaced with 2 K-riders per JAN. 20 mg Lasix due at 2114. Dr. Hoffman contacted for verification of administration; order received to administer as ordered. See MAR for details.
[2022-11-02] MEDS: morphine 4 mg/mL SDV 1 mL 2 MG IVP (23:42)
[2022-11-02 23:58] LABS: Glucose Point of Care 123 mg/dL (70-110)
[2022-11-03] VITALS (77 sets, daily range): BP systolic 88–139; BP diastolic 46–96; PULSE 16–120; RESP 16–50; TEMP 36.1–37.7; O2SAT 73–98; BMI 19.5
--- NOTE | 2022-11-03 | PC.NURSE ---
Morphine Patient complaining of pain in sacrum with a rating of 10 on a 1-10 numerical scale. PO tylenol ordered, no other pain medication available. PO not administered due to patient's RR in the 30s with labored breathing. Dr. Hoffman contacted and order received for 2 mg morphine IVP PRN Q4HR for severe pain. See MAR for details.
[2022-11-03] MEDS: enoxaparin 60 mg/0.6 mL Syringe SUBCUT ×2 (00:25→14:21)
[2022-11-03] MEDS: ipratropium-albuterol 3 mL Neb INHALATION ×6 (00:41→20:19)
[2022-11-03 03:01] LABS: Basophils % 0.1 %; Hematocrit 24.8 % (42.0-52.0); Hemoglobin 7.6 g/dL (11.7-16.6); Lymphocytes # 0.1 10^3/uL (0.8-4.8); Lymphocytes % 0.4 %; Mean Corpuscular HGB Conc 30.6 g/dL (30.0-36.0); Mean Corpuscular Hemoglobin 26.5 pg (28.0-34.0); Mean Corpuscular Volume 86.4 fl (80-94); Mean Platelet Volume 11.4 fL (7.4-10.4); Monocytes # 0.5 10^3/uL (0.2-0.9); Monocytes % 3.7 %; Neutrophils # 13.42 10^3/uL (1.8-7.7); Neutrophils % 94.3 %; Nucleated Red Blood Cells % 0 %; Platelet Count 266 10^3/cmm (130-400); Red Blood Count 2.87 10^6/uL (4.1-5.3); Red Cell Distribution Width 17.6 % (12.1-15.1); White Blood Count 14.2 10^3/uL (4.0-10.0)
[2022-11-03 03:26] LABS: Vancomycin Trough 20.3 ug/mL (10-15)
[2022-11-03 03:27] LABS: Alanine Aminotransferase 22 U/L (0-41); Albumin Level 2.6 g/dL (3.5-5.2); Alkaline Phosphatase 107 U/L (40-130); Anion Gap 15.2 (5-19); Aspartate Amino Transferase 23 U/L (0-40); Blood Urea Nitrogen 8 mg/dL (8-23); Calcium 8.7 mg/dL (8.5-10.5); Carbon Dioxide 28 mmol/L (22-29); Chloride 108 mmol/L (98-107); Globulin 2.4 g/dL (1.3-4.6); Glucose 114 mg/dL (65-115); Magnesium 1.9 mg/dL (1.7-2.3); Osmolality Calculated 307 mOsm/kg (285-295); Sodium 149 mmol/L (136-145); Total Bilirubin 0.8 mg/dL (0.15-1.2)
[2022-11-03 03:32] LABS: Procalcitonin 1.51 ng/mL (0-0.5)
[2022-11-03 03:37] LABS: Potassium 2.2 mmol/L (3.5-5.1)
--- NOTE | 2022-11-03 03:43 | PC.NURSE ---
Potassium level Patient's potassium level 2.2. Dr. Hoffman contacted and order received for 40 meq KCL IV once to administer over 4 hours.
[2022-11-03] MEDS: lidocaine 1% 5 ML in potassium chloride premix 100 ML 25 ML IV (03:52)
[2022-11-03] MEDS: dextrose 5% 1,000 ML 50 ML IV (03:58)
[2022-11-03] MEDS: dexmedetomidine 400 MCG in sodium chloride 0.9% (100 ml) 100 ML 12.24 MCG IV (03:58)
[2022-11-03] MEDS: piperacillin-tazobactam 3.375 GM in sodium chloride 0.9% (plus) 50 ML IV ×3 (06:07→21:42)
[2022-11-03] MEDS: vancomycin 750 MG in sodium chloride 0.9% 250 ML 250 MG IV ×2 (06:11→19:26)
--- NOTE | 2022-11-03 07:32 | PC.NURSE ---
Patient confused, only alert to self, trying to climb over side rail of bed (other side is down), pulled oxygen off. Oxygen placed back on patient, placed back in bed, attempted to reorient patient, easily redirected. Precedex turned up from 0.7 mcg/kg/min to 1 mcg/kg/min.
[2022-11-03] MEDS: budesonide 0.5 mg/2 mL Neb INHALATION ×2 (08:16→20:19)
[2022-11-03] MEDS: morphine 4 mg/mL SDV 1 mL 2 MG IVP ×2 (10:49→23:00)
[2022-11-03] MEDS: dexmedetomidine 400 MCG in sodium chloride 0.9% (100 ml) 100 ML 20.98 MCG IV ×3 (10:56→21:52)
--- NOTE | 2022-11-03 11:22 | PC.NURSE ---
Patient again pulling off Bipap mask, sats 70s, HR 140-150s, RR 40-50s. Dr. Duffy called and notified, order to place back on HHFNC. Patient given 2 MG IVP Morphine. Patient placed back on Bipap immediately. Patient's vitals not improving and patient very anxious, Dr. Duffy called to room. Patient's son and at bedside. Ordered 2mg IVP ativan.
--- NOTE | 2022-11-03 11:35 | PC.NURSE ---
Metoprolol 5 mg IVP x1, Ativan 2 mg IVP x1, ordered to hold currently because patient's vitals are stable and patient is resting. and son at bedside.
--- NOTE | 2022-11-03 11:43 | PC.CHAP ---
Pastoral Care Encounter/Spiritual Assessment Type of Contact [] Declined professor of environmental engineering visit [] Patient/Family/Request visit [] Outpatient visit [] Follow-up visit [] Physician referral [] Code/Alert [x] Routine visit [] Staff referral [] Actively dying [] Patient sleeping [x] Family support [] [] Out of room [] Palliative care [] [x] Receiving care in room [] Pre-surgical visit [] Trauma [] Long length of stay [x] ICU visit [x] Other: family present Relational/Emotional Strength [] Patient feels connected with others/family/visitors/staff [] Distress [] Loneliness/isolation [] Abandonment Spirituality of Patient [] Person of Sarah [] Attends Rastafarian of their Sarah [] Believes in Prayer [] Reads Bible or Yazdanism materials [] There are Spiritual issues to be addressed Director Of Search Engine Marketing Interventions [x] Prayer [] Active listening [] Non-anxious presence [] Spiritual/emotional support [] Crisis/trauma care [] Spiritual counseling [] Bereavement support [] Provided bereavement packet [] Provided Bible/devotional materials [] Provided toy/stuffed animal, coloring book to patient or family member [] Provided Communion [] Anointing/[place] [] Salvation [x] Completed spiritual assessment [] Other: Impact on Illness or Injury [] Angry [] Fearful [] Anxious [] Often cries [] Exhaustion [] Unable to work [] Unable to attend quaker [] Unable to walk/stand [] Unable to read [] Unable to drive [] Unable to eat/drink [] Unable to sleep [] Unable to be with family [] Patient intubated [] Other: Summary Time spent with patient
[2022-11-03] MEDS: lidocaine 1% 5 ML in potassium chloride premix 100 ML 50 ML IV (12:13)
--- NOTE | 2022-11-03 12:33 | PC.NURSE ---
AND/DNR Patient's , Margret, told nurse she wants patient to not be re intubated or to have CPR performed. Dr. Duffy notified.
--- NOTE | 2022-11-03 13:46 | P.PN_ITS ---
Subjective Subjective: Seen and examined this morning, attempt was made to place patient on BiPAP to assist with work of breathing, but unfortunately patient did not tolerated BiPAP well yesterday, he became extremely anxious tachycardic, and BiPAP had to be discontinued, was placed back on heated high flow. Medications: Medication Review Details: Generic Name Dose Route Start Last Admin Trade Name Freq PRN Reason Stop Dose Admin Acetaminophen 650 mg 11/02/22 03:24 11/02/22 05:17 Acetaminophen 65 0 Mg/20.3 Ml Udc PO 650 mg Q6H PRN Administration MILD PAIN OR INCR EASE TEMP Albuterol/Ipratrop ium 3 ml 10/30/22 16:00 11/03/22 11:31 Ipratropium-Albu terol 3 Ml Neb INHALATION 3 ml Q4H.RESPIRATORY S CH Administration Aspirin 81 mg 10/31/22 08:00 11/03/22 08:27 Aspirin 81 Mg Ch ew Tablet PO Not Given DAILY@0800 MICHELLE Atorvastatin Calci um 40 mg 10/31/22 09:00 11/03/22 08:27 Atorvastatin 40 Mg Tablet PO Not Given DAILY MICHELLE Budesonide 0.5 mg 10/30/22 20:00 11/03/22 08:16 Budesonide 0.5 M g/2 Ml Neb INHALATION 0.5 mg BID.RESPIRATORY S CH Administration Enoxaparin Sodium 60 mg 10/31/22 01:00 11/03/22 00:25 Enoxaparin 60 Mg /0.6 Ml Syringe SUBCUT 60 mg Q12H MICHELLE Administration Diltiazem HCl 100 mg/ Sodium 100 mls @ 0 mls/h r 10/30/22 08:30 10/30/22 09:02 Chloride IV 0 mg/hr .Q0M MICHELLE 0 mls/hr Titration Protocol Per Protocol Norepinephrine Bit artrate 4 mg 254 mls @ 0 mls/h r 10/30/22 11:15 10/30/22 23:14 / Dextrose IV Infused .Q0M MICHELLE Titration Protocol Per Protocol Piperacillin Sod/T azobactam 50 mls @ 12.5 mls /hr 10/30/22 14:00 11/03/22 10:47 Sod 3.375 gm/ So dium Chloride IV Infused Q8H MICHELLE Infusion Protocol Levofloxacin/Dextr ose 750 mg in 150 mls @ 100 mls/hr 10/30/22 16:00 11/02/22 19:36 Levaquin-D5w IV Infused Q24H MICHELLE Infusion Protocol Norepinephrine Bit artrate 8 mg 508 mls @ 0 mls/h r 10/30/22 18:45 11/01/22 07:00 / Dextrose IV 0 mcg/min .Q0M MICHELLE 0 mls/hr Titration Protocol Per Protocol Dexmedetomidine HC l 400 mcg/ 104 mls @ 0 mls/h r 10/31/22 08:45 11/03/22 10:56 Sodium Chloride IV 1.2 mcg/kg/hr .Q0M MICHELLE 20.98 mls/hr Administration Protocol Per Protocol Dextrose 1,000 mls @ 50 ml s/hr 11/01/22 08:45 11/03/22 03:58 D5w IV 50 mls/hr .Q20H MICHELLE Administration Vancomycin HCl 750 mg/ Sodium 250 mls @ 250 mls /hr 11/03/22 07:00 11/03/22 07:31 Chloride IV Infused Q12H MICHELLE Infusion Lidocaine HCl 5 ml / Potassium 105 mls @ 50 mls/ hr 11/03/22 11:56 11/03/22 12:13 Chloride IV 11/03/22 14:01 50 mls/hr ONCE ONE Administration Morphine Sulfate 2 mg 11/02/22 23:23 11/03/22 10:49 Morphine 4 Mg/Ml Sdv 1 Ml IVP 2 mg Q4H PRN Administration SEVERE PAIN Vitals/I&O/Wt Last Vital Signs Temp 97.0 F L 11/03/22 07:00 Pulse 89 11/03/22 11:35 Resp 18 11/03/22 11:32 BP 116/88 11/03/22 11:00 Pulse Ox 94 11/03/22 11:32 O2 Del Method 11/03/22 11:32 O2 Flow Rate 50 11/03/22 11:32 FiO2 100 11/03/22 11:32 11/02/22 11/03/22 11/03/22 22:59 06:59 14:59 Intake Total 1131.319 / 1541.319 649.518 / 2190.837 508.175 / 508.175 Output Total 2425 / 4025 Balance 1131.319 / -58.681 -1775.482 / -1834.163 508.175 / 508.175 Weight last 48 hrs Weight 59.874 kg Weight 65.516 kg Physical Exam Narrative: Alert awake HENMT: COMMON NORMALS: normocephalic and atraumatic HEAD & SCALP: normocephalic and atraumatic Eye: COMMON NORMALS: no scleral icterus GENERAL EYE: appearance normal, both eyes and all related structures Chest: COMMONS NORMALS: normal inspection of the chest and normal palpation of entire chest wall CHEST: Yes Symmetrical chest wall rise Resp: OTHER: Coarse breath sound bilateral Cardio: COMMON NORMALS: regular rate, regular rhythm, S1 normal heart sound present, S2 normal heart sound present and Peripheral pulses 2+ throughout RATE: regular rate RHYTHM: regular rhythm HEART SOUNDS: S1 normal heart sound present and S2 normal heart sound present PERIPHERAL PULSES: Peripheral pulses 2+ throughout OTHER: ESM in aortic area GI: COMMON NORMALS: Normal to inspection, nondistended, normoactive bowel sounds present, Soft to palpation, non-tender, No hepatosplenomegaly present and no masses AUSCULTATION: Yes normoactive bowel sounds PALPATION: Yes Soft to palpation and Yes No hepatosplenomegaly present RECTAL EXAM: Yes deferred Extremity: COMMON NORMALS: no clubbing, cyanosis or edema and no pedal edema Urinary Catheter Management: Nunez: Cath Placed During This Visit: yes Reason for Continuing Indwelling Catheter: Accurate Measurement of Urinary Output in Critically Ill Patients Urinary Catheter Date of Insertion: 10/30/22 Data 11/03/22 01:57 11/03/22 01:57 A&P Assessment and plan (1) Pneumonia: (2) DVT (deep venous thrombosis): (3) Diastolic CHF: Plan 72 year old male with past medical history of aortic stenosis, WaldenStrom macroglobulinemia, DVT on Xarelto at home, HFpEF, COVID-19 pneumonia in March, for which he was intubated, likely for about a week, and then had a prolonged hospital recovery course, was brought in from home today for management of respiratory distress. Currently intubated sedated on mechanical ventilation. Assessment: Acute on chronic hypoxic respiratory failure, secondary to pneumonia NSTEMI likely type II secondary to A. fib with RVR, acute hypoxia, A. fib with RVR Sepsis: Patient has elevated WBC, complaining of intermittent subjective fever at home, signs of endorgan dysfunction, elevated lactic acid, though could be secondary to acute hypotension secondary to A. fib with RVR, tachypneic tachycardic,patient has received fluid boluses in the ER. Transaminitis: Possibly secondary to transient hypotension: Shock liver: Resolved History of COVID-19 pneumonia: Persistent positive COVID PCR SVT: History of DVT History of heart failure with preserved ejection fraction Aortic stenosis Anemia: Likely ACD Severe physical deconditioning Plan: Follow blood culture:NTD Urine culture: Urine Legionella antigen: Negative Bacterial antigen panel: Negative MRSA PCR: Negative Follow respiratory viral panel: Procalcitonin:10.98 Follow repeat procalcitonin Follow FOBT Persistently positive COVID PCR Sputum gram stain and culture: Rare white blood cells, no organisms seen 2D echo: LV systolic function is normal with EF of 55 to 60% grade 1 diastolic dysfunction, mild aortic stenosis. Patient is currently converted to sinus rhythm, Cardizem drip has been discontinued, Currently on vancomycin as well as Zosyn and levofloxacin for double Pseudomonas coverage Levofloxacin will also provide atypical coverage Continue Levophed, titrate to maintain MAP greater than 65 Currently on therapeutic anticoagulation with Lovenox, will also cover him for history of DVT, Continue DuoNebs, continue budesonide inhaler Currently on propofol for sedation Monitor ABG( P/F ratio) , x-ray chest Was on mechanical ventilation ( VC/AC, tidal volume 480, PEEP of 8, FiO2 40%,R/R: 14, Ti: 0.9,) Currently on heated high flow Lasix 20 twice daily Monitor CMP, possible ultrasound abdomen. Monitor intake output charting Daily weight Monitor electrolytes We will keep n.p.o. for now: We will plan to initiate tube feed CODE STATUS: Full code DVT prophylaxis not needed on therapeutic anticoagulation Disposition: If patient will do well on heated high flow we will plan to send him to LTACH. LTAC referral has been sent. Attestations Medical Necessity Statement*: Patient is still in hospital management of respiratory failure. Time Spent in Patient Care: Greater than 35 minutes (>than 50% of time spent in counselling and/or direct pt care on unit) . Critical Care Time: The high probability of a clinically significant, sudden or life threatening deterioration of the patient's [] system(s) required my full and direct attention, intervention and personal management. The critical care time is as shown. This time is in addition to time spent performing any reported procedures but includes the following: [x] Data and vital sign review and interpretation [x] Patient assessment, examination and intervention [x] Documentation [x] Medication orders and management Critical Care Time (min): 35 Coding Level of Care Code Acute Sas Clinical Programmer for g Fwd Exam Detailed Diagnoses Pneumonia J18.9 DVT (deep venous thrombosis) I82.409 Diastolic CHF I50.30
[2022-11-03] MEDS: levofloxacin-dextrose 5 % 750 MG/150 ML PREMIX 100 MG IV (16:51)
--- NOTE | 2022-11-03 20:10 | PC.NURSE ---
Potassium Potassium level 2.2 at 0157 this AM. Replacements administered per JAN. No potassium level rechecked. Dr. Hoffman notified; no new orders received.
[2022-11-03] MEDS: FUROsemide 10 mg/mL SDV 4mL 20 MG IVP (21:40)
[2022-11-03] MEDS: potassium chloride premix 100 ML 50 MEQ IV (21:42)
--- NOTE | 2022-11-03 21:45 | PC.NURSE ---
Physician Communication Dr. Duffy called for update on patient. The following information was discussed: coarse lung sounds, oxygen requirements-HHF at 90% fio2, 50L as well as oxymask at 15 L, and patient still appearing short of breath. Telephone orders received for 20 mg Lasix IVP once now and 20 MEQ potassium chloride IV now. See MAR for medication administration.
[2022-11-04] VITALS (65 sets, daily range): BP systolic 84–123; BP diastolic 47–69; PULSE 67–127; RESP 16–50; TEMP 37–37.6; O2SAT 74–98; BMI 18.8
[2022-11-04] MEDS: ipratropium-albuterol 3 mL Neb INHALATION ×5 (00:08→15:15)
[2022-11-04] MEDS: enoxaparin 60 mg/0.6 mL Syringe SUBCUT ×2 (00:22→13:01)
[2022-11-04] MEDS: dextrose 5% 1,000 ML 50 ML IV (00:25)
[2022-11-04 02:42] LABS: Basophils % 0.1 %; Hematocrit 25.9 % (42.0-52.0); Hemoglobin 7.9 g/dL (11.7-16.6); Lymphocytes # 0.1 10^3/uL (0.8-4.8); Lymphocytes % 0.5 %; Mean Corpuscular HGB Conc 30.5 g/dL (30.0-36.0); Mean Corpuscular Hemoglobin 26.9 pg (28.0-34.0); Mean Corpuscular Volume 88.1 fl (80-94); Mean Platelet Volume 11.2 fL (7.4-10.4); Monocytes # 0.4 10^3/uL (0.2-0.9); Monocytes % 2.6 %; Neutrophils # 14.55 10^3/uL (1.8-7.7); Neutrophils % 95.5 %; Nucleated Red Blood Cells % 0 %; Platelet Count 246 10^3/cmm (130-400); Red Blood Count 2.94 10^6/uL (4.1-5.3); Red Cell Distribution Width 17.8 % (12.1-15.1); White Blood Count 15.2 10^3/uL (4.0-10.0)
[2022-11-04 03:06] LABS: Alanine Aminotransferase 17 U/L (0-41); Albumin Level 2.4 g/dL (3.5-5.2); Alkaline Phosphatase 118 U/L (40-130); Anion Gap 12.6 (5-19); Aspartate Amino Transferase 18 U/L (0-40); Blood Urea Nitrogen 13 mg/dL (8-23); Calcium 8.6 mg/dL (8.5-10.5); Carbon Dioxide 29 mmol/L (22-29); Chloride 110 mmol/L (98-107); Globulin 2.5 g/dL (1.3-4.6); Glucose 114 mg/dL (65-115); Magnesium 1.7 mg/dL (1.7-2.3); Osmolality Calculated 309 mOsm/kg (285-295); Sodium 149 mmol/L (136-145); Total Bilirubin 0.9 mg/dL (0.15-1.2); Total Protein 4.9 g/dL (6.6-8.7)
[2022-11-04] MEDS: morphine 4 mg/mL SDV 1 mL 2 MG IVP ×5 (03:11→20:39)
[2022-11-04 03:21] LABS: Potassium 2.6 mmol/L (3.5-5.1)
--- NOTE | 2022-11-04 03:29 | PC.NURSE ---
Potassium Patient's potassium level critical at 2.6. Dr. Hoffman contacted and telephone order received for 40 meq potassium chloride IV once now. See MAR for details.
[2022-11-04] MEDS: potassium chloride premix 100 ML 25 MEQ IV (03:33)
[2022-11-04] MEDS: dexmedetomidine 400 MCG in sodium chloride 0.9% (100 ml) 100 ML 20.98 MCG IV (04:21)
--- NOTE | 2022-11-04 05:00 | XR_ITS ---
WS: [id number] EXAMINATION: XR chest 1V portable [id number] REASON FOR EXAM: sob COMPARISON: Previous study ORDER DATE: 11/04/2022 5:00 AM TECHNIQUE: A single, portable frontal chest x-ray was obtained. X-RAY FINDINGS: Left Port-A-Cath again noted. Diffusely increased interstitial alveolar opacities are unchanged with unchanged small bilateral pleural effusions obscuring the hemidiaphragm outlines.. XR/XR chest 1V portable [id number] IMPRESSION: No change since previous study.
[2022-11-04] MEDS: vancomycin 750 MG in sodium chloride 0.9% 250 ML 250 MG IV (06:02)
[2022-11-04] MEDS: piperacillin-tazobactam 3.375 GM in sodium chloride 0.9% (plus) 50 ML IV (06:56)
[2022-11-04] MEDS: budesonide 0.5 mg/2 mL Neb INHALATION (08:00)
--- NOTE | 2022-11-04 08:00 | PC.NURSE ---
Patient requiring HHFNC and NRB to maintain SPO2, but still remains in mid to upper 80s%.
[2022-11-04] MEDS: FUROsemide 10 mg/mL SDV 2mL 20 MG IVP ×2 (08:10→19:33)
[2022-11-04] MEDS: lidocaine 1% 5 ML in potassium chloride premix 100 ML 25 ML IV (08:10)
[2022-11-04] MEDS: meropenem 1,000 MG in sodium chloride 0.9% (plus) 50 ML 100 MG IV ×2 (08:29→16:20)
[2022-11-04] MEDS: LORazepam 2 mg/mL INJ 1 mL 1 MG IVP ×2 (09:53→19:32)
--- NOTE | 2022-11-04 09:59 | PC.NURSE ---
Patient voiced to nurse that he is ready to go . Patient asked to explain what he mean. Patient wishes to stop treatment and to be made comfortable and allowed to pass away. Patient requested a preacher. Patient's preacher actually visiting and prayed with the patient. out of room at this time to eat with family.
--- NOTE | 2022-11-04 10:18 | PC.NURSE ---
Precedex Dr. Duffy called and ordered to stop gtt. Precedex turned off.
--- NOTE | 2022-11-04 11:57 | P.PN_ITS ---
Subjective Subjective: Mr. Rodriguez was seen and examined this morning, he continues to require high supplemental oxygen, currently is on heated high flow as well as nonrebreather mask: 80% FiO2 and 50 L/min flow, 15 L/min nonrebreather mask, a.m. chest x-ray done today has shown: Increased interstitial alveolar opacities , White cell count has also trended up, will broaden antibiotic coverage to meropenem, add micafungin, Will continue with levofloxacin. Patient serum albumin is 2.4, will give him 25 g IV albumin every 8, will continue with Lasix 20 IV twice daily, for now we will continue with Vanco, even though MRSA PCR is negative.Serum sodium is 149 for now we will continue with D5 water. Hypokalemia correction has been undertaken. Medications: Medication Review Details: Generic Name Dose Route Start Last Admin Trade Name Freq PRN Reason Stop Dose Admin Acetaminophen 650 mg 11/02/22 03:24 11/02/22 05:17 Acetaminophen 65 0 Mg/20.3 Ml Udc PO 650 mg Q6H PRN Administration MILD PAIN OR INCR EASE TEMP Albuterol/Ipratrop ium 3 ml 10/30/22 16:00 11/04/22 11:50 Ipratropium-Albu terol 3 Ml Neb INHALATION 3 ml Q4H.RESPIRATORY S CH Administration Aspirin 81 mg 10/31/22 08:00 11/04/22 08:04 Aspirin 81 Mg Ch ew Tablet PO Not Given DAILY@0800 MICHELLE Atorvastatin Calci um 40 mg 10/31/22 09:00 11/04/22 08:04 Atorvastatin 40 Mg Tablet PO Not Given DAILY MICHELLE Budesonide 0.5 mg 10/30/22 20:00 11/04/22 08:00 Budesonide 0.5 M g/2 Ml Neb INHALATION 0.5 mg BID.RESPIRATORY S CH Administration Enoxaparin Sodium 60 mg 10/31/22 01:00 11/04/22 00:22 Enoxaparin 60 Mg /0.6 Ml Syringe SUBCUT 60 mg Q12H MICHELLE Administration Furosemide 20 mg 11/04/22 07:30 11/04/22 08:10 Furosemide 10 Mg /Ml Sdv 2ml IVP 20 mg Q12H MICHELLE Administration Diltiazem HCl 100 mg/ Sodium 100 mls @ 0 mls/h r 10/30/22 08:30 10/30/22 09:02 Chloride IV 0 mg/hr .Q0M MICHELLE 0 mls/hr Titration Protocol Per Protocol Norepinephrine Bit artrate 4 mg 254 mls @ 0 mls/h r 10/30/22 11:15 10/30/22 23:14 / Dextrose IV Infused .Q0M MICHELLE Titration Protocol Per Protocol Levofloxacin/Dextr ose 750 mg in 150 mls @ 100 mls/hr 10/30/22 16:00 11/03/22 19:22 Levaquin-D5w IV Infused Q24H MICHELLE Infusion Protocol Norepinephrine Bit artrate 8 mg 508 mls @ 0 mls/h r 10/30/22 18:45 11/01/22 07:00 / Dextrose IV 0 mcg/min .Q0M MICHELLE 0 mls/hr Titration Protocol Per Protocol Dexmedetomidine HC l 400 mcg/ 104 mls @ 0 mls/h r 10/31/22 08:45 11/04/22 10:17 Sodium Chloride IV Infused .Q0M MICHELLE Titration Protocol Per Protocol Dextrose 1,000 mls @ 50 ml s/hr 11/01/22 08:45 11/04/22 00:25 D5w IV 50 mls/hr .Q20H MICHELLE Administration Vancomycin HCl 750 mg/ Sodium 250 mls @ 250 mls /hr 11/03/22 07:00 11/04/22 07:10 Chloride IV Infused Q12H MICHELLE Infusion Albumin Human 25 gm in 100 mls @ 60 mls/hr 11/04/22 07:30 11/04/22 10:17 Albumin IV Infused Q8H MICHELLE Infusion Meropenem 1,000 mg / Sodium 50 mls @ 100 mls/ hr 11/04/22 07:45 11/04/22 08:54 Chloride IV Infused Q8H MICHELLE Infusion Lorazepam 1 mg 11/04/22 08:35 11/04/22 09:53 Lorazepam 2 Mg/M l Inj 1 Ml IVP 1 mg Q8H PRN Administration ANXIETY Morphine Sulfate 2 mg 11/02/22 23:23 11/04/22 09:01 Morphine 4 Mg/Ml Sdv 1 Ml IVP 2 mg Q4H PRN Administration SEVERE PAIN Vitals/I&O/Wt Last Vital Signs Temp 98.8 F 11/04/22 04:00 Pulse 84 11/04/22 11:52 Resp 16 11/04/22 11:52 BP 105/63 11/04/22 10:00 Pulse Ox 94 11/04/22 11:52 O2 Del Method 11/04/22 11:51 O2 Flow Rate 50 11/04/22 11:52 FiO2 80 11/04/22 11:52 11/03/22 11/04/22 11/04/22 22:59 06:59 14:59 Intake Total 761.802 / 5780.821 3484 / 2523.977 904.000 / 904.000 Output Total 450 / 450 1680 / 2130 Balance 311.802 / 819.977 -426 / 393.977 904.000 / 904.000 Weight last 48 hrs Weight 58.014 kg Weight 59.874 kg Physical Exam Narrative: Alert awake HENMT: COMMON NORMALS: normocephalic and atraumatic HEAD & SCALP: normocephalic and atraumatic Eye: COMMON NORMALS: no scleral icterus GENERAL EYE: appearance normal, both eyes and all related structures Chest: COMMONS NORMALS: normal inspection of the chest and normal palpation of entire chest wall CHEST: Yes Symmetrical chest wall rise Resp: OTHER: Coarse breath sound bilateral Cardio: COMMON NORMALS: regular rate, regular rhythm, S1 normal heart sound present, S2 normal heart sound present and Peripheral pulses 2+ throughout RATE: regular rate RHYTHM: regular rhythm HEART SOUNDS: S1 normal heart sound present and S2 normal heart sound present PERIPHERAL PULSES: Peripheral pulses 2+ throughout OTHER: ESM in aortic area GI: COMMON NORMALS: Normal to inspection, nondistended, normoactive bowel sounds present, Soft to palpation, non-tender, No hepatosplenomegaly present and no masses AUSCULTATION: Yes normoactive bowel sounds PALPATION: Yes Soft to palpation and Yes No hepatosplenomegaly present RECTAL EXAM: Yes deferred Extremity: COMMON NORMALS: no clubbing, cyanosis or edema and no pedal edema Urinary Catheter Management: Nunez: Cath Placed During This Visit: yes Reason for Continuing Indwelling Catheter: Accurate Measurement of Urinary Output in Critically Ill Patients Urinary Catheter Date of Insertion: 10/30/22 Data 11/04/22 02:32 11/04/22 02:32 Micro: Microbiology 10/30/22 08:44 Blood Culture - Final Blood NO GROWTH AFTER 5 DAYS 10/30/22 08:39 Blood Culture - Final Blood NO GROWTH AFTER 5 DAYS A&P Assessment and plan (1) Pneumonia: (2) DVT (deep venous thrombosis): (3) Diastolic CHF: Plan 72 year old male with past medical history of aortic stenosis, WaldenStrom macroglobulinemia, DVT on Xarelto at home, HFpEF, COVID-19 pneumonia in March, for which he was intubated, likely for about a week, and then had a prolonged hospital recovery course, was brought in from home today for management of respiratory distress. Currently intubated sedated on mechanical ventilation. Assessment: Acute on chronic hypoxic respiratory failure, secondary to pneumonia NSTEMI likely type II secondary to A. fib with RVR, acute hypoxia, A. fib with RVR Sepsis: Patient has elevated WBC, complaining of intermittent subjective fever at home, signs of endorgan dysfunction, elevated lactic acid, though could be secondary to acute hypotension secondary to A. fib with RVR, tachypneic tachycardic,patient has received fluid boluses in the ER. Transaminitis: Possibly secondary to transient hypotension: Shock liver: Resolved History of COVID-19 pneumonia: Persistent positive COVID PCR SVT: History of DVT History of heart failure with preserved ejection fraction Aortic stenosis Anemia: Likely ACD Severe physical deconditioning Plan: Follow blood culture:NTD Urine culture: Urine Legionella antigen: Negative Bacterial antigen panel: Negative MRSA PCR: Negative Follow respiratory viral panel: Procalcitonin:10.98 Follow repeat procalcitonin Follow FOBT Persistently positive COVID PCR Sputum gram stain and culture: Rare white blood cells, no organisms seen 2D echo: LV systolic function is normal with EF of 55 to 60% grade 1 diastolic dysfunction, mild aortic stenosis. Patient is currently converted to sinus rhythm, Cardizem drip has been discontinued, Currently on vancomycin as well as Zosyn and levofloxacin for double Pseudomonas coverage Levofloxacin will also provide atypical coverage Continue Levophed, titrate to maintain MAP greater than 65 Currently on therapeutic anticoagulation with Lovenox, will also cover him for history of DVT, Continue DuoNebs, continue budesonide inhaler Currently on propofol for sedation Monitor ABG( P/F ratio) , x-ray chest Was on mechanical ventilation ( VC/AC, tidal volume 480, PEEP of 8, FiO2 40%,R/R: 14, Ti: 0.9,) Currently on heated high flow Lasix 20 twice daily Monitor CMP, possible ultrasound abdomen. Monitor intake output charting Daily weight Monitor electrolytes We will keep n.p.o. for now: We will plan to initiate tube feed CODE STATUS: Full code DVT prophylaxis not needed on therapeutic anticoagulation Prognosis: Poor Disposition: If patient will do well on heated high flow we will plan to send him to LTACH. LTAC referral has been sent. Attestations Medical Necessity Statement*: Patient is in hospital management of respiratory failure Time Spent in Patient Care: Greater than 35 minutes Critical Care Time: The high probability of a clinically significant, sudden or life threatening deterioration of the patient's [] system(s) required my full and direct attention, intervention and personal management. The critical care time is as shown. This time is in addition to time spent performing any reported procedures but includes the following: [x] Data and vital sign review and interpretation [x] Patient assessment, examination and intervention [x] Documentation [x] Medication orders and management Critical Care Time (min): 35 Coding Level of Care Code Acute Welding Estimator for Chg Fwd Diagnoses Pneumonia J18.9 DVT (deep venous thrombosis) I82.409 Diastolic CHF I50.30
[2022-11-04] MEDS: HYDROmorphone 1 mg/mL INJ 1 mL 0.3 MG IVP (14:15)
--- NOTE | 2022-11-04 16:36 | PC.NURSE ---
Precedex Patient restless in bed, HR fluctuating from 110 to 170s, SPO2 mid 80s. Dr. Duffy called and notified, ordered to restart precedex gtt.
[2022-11-04] MEDS: dexmedetomidine 400 MCG in sodium chloride 0.9% (100 ml) 100 ML 17.48 MCG IV (17:30)
[2022-11-04] MEDS: levofloxacin-dextrose 5 % 750 MG/150 ML PREMIX 100 MG IV (17:32)
--- NOTE | 2022-11-04 18:41 | PC.NURSE ---
Precedex Patient's family asked that precedex be turned down for a little while to allow patient to talk to them. They understand patients critical condition and are talking to nurse about comfort measures.
--- NOTE | 2022-11-04 20:01 | PC.NURSE ---
Family requested comfort care measures for patient only at this time. Physician notified.
--- NOTE | 2022-11-04 21:16 | W.PM.EVENTAC ---
Event Note Event Note: Called by RN upon request of the family wanting to pursue comfort measures. Went to see patient at bedside. He is tachycardic in the 160s to 180s. Hypoxic. Oxygen saturation 67% on nonrebreather and high flow. Temp 99.7. Patient moaning in pain and appears in distress. Altered. FiO2 80%, 50 L high flow nasal cannula. A lot of family present at bedside including and both daughters, 1 of which is an anesthesiologist critical care physician. All family in agreement that they would like to keep the patient comfortable at this time and pursue comfort measures only. They would like to stop IV fluids, antibiotics and any further treatment with the goal of keeping patient comfortable. They requested for nasal cannula at this time knowing that patient will continue to be hypoxic. Requesting to remove high flow and nonrebreather. Family very well aware of patient's prognosis and current medical issues. Answered all questions family had to their satisfaction. At this time we will pursue comfort measure status for this patient as per family request. Everyone in the room is in agreement. Work Distributor also present. RN present as well. Comfort care orders placed. Event Notes Attestations Time Spent in Patient Care: 30
[2022-11-04] MEDS: morphine 10 mg/0.5 mL oral liq UD SUBLINGUAL (21:22)
[2022-11-04] MEDS: glycopyrrolate 0.2 mg/mL SDV 2 mL IV (21:36)
--- NOTE | 2022-11-04 21:43 | PC.NURSE ---
Patient transitioned to comfort measures per family request. Heated High FLow cannula and Non rebreather removed per family request at 2124.
--- NOTE | 2022-11-04 23:03 | PC.NURSE ---
Patient 2229. Physician and head housekeeper notified. Family at bedside. Body transfer signed by , Margret Gordon for [facility] in [place], [place]. [facility] called at 0. They have released the body. Waiting for saving site to call back.
--- NOTE | 2022-11-04 23:39 | PC.NURSE ---
Saving site called to release the body. [facility] called and will come pharmacy picking technician the body tonight.
--- NOTE | 2022-11-05 00:13 | PC.NURSE ---
Post mortem care performed. Port deaccessed. Nunez catheter removed. Patient discharged to [facility] home. Discharged at 0010.
--- NOTE | 2022-11-05 13:43 | PM.DDS ---
Discharge Providers DDS Date of Admission: 10/30/22 11:48 Date Summary Completed: 11/14/22 Attending Provider at Admission: Jluis Duffy MD Attending Provider at Discharge: Jluis Duffy MD DS Diagnoses Hospital Diagnoses (1) Pneumonia: (2) DVT (deep venous thrombosis): (3) Diastolic CHF: Reason for Visit Reason for Visit RESP DISTRESS Summary Summary Summary: 72 year old male with past medical history of mild aortic stenosis, WaldenStrom macroglobulinemia, DVT on Xarelto at home, HFpEF, COVID-19 pneumonia in March, for which he was intubated, likely for about a week, and then had a prolonged hospital recovery course,thereafter he was discharged home on home oxygen, was brought in from home for management of respiratory distress.Patient was intubated by the EMS in the field due to sever hypoxia.He was admitted for the management of Acute on chronic hypoxic respiratory failure, multifactorial ( pneumonia,decompensated HFpEF),Sepsis,Transaminitis: Possibly secondary to transient hypotension:,History of COVID-19 pneumonia: Persistent positive COVID PCR,SVT:,History of DVT,Aortic stenosis,Anemia: Likely ACD,Severe physical deconditioning, on admission he was also found to be in A.Fib with rvr,for which he was placed on cardizem drip,to which he responded well and converted to SR.During the hospital stay blood culture:were negative,Urine culture:unfortunately was not obtained, Urine Legionella antigen: Negative Bacterial antigen panel: Negative,MRSA PCR: Negative, Follow respiratory viral panel:negative except for COVID -PCR-Positive, Procalcitonin:10.98, repeat procalcitonin: 1.51,Sputum gram stain and culture: Rare white blood cells, no organisms seen 2D echo: LV systolic function is normal with EF of 55 to 60% grade 1 diastolic dysfunction, mild aortic stenosis.patient was kept on broad spectrum abxs during the hospital stay,on therapeutic anticoagulation, DuoNebs, continue budesonide inhaler, abg, xray chest was monitored,patient was initially kept on mechanical ventilation and was later extubated to [facility] , unfortunately patient was not able to keep up with initial improvement in his respiratory status,our initial expectation was that patient will have a long road to recovery and we were hoping to titarte the fio2 requirement down and send him to LTACH,but patient was overall not responding well to above medical management.His spo2 requirement kept increasing later requiring close to 100 % fio2 on HHFONC,as well as NRM.Given his overall poor prognosis due to underlying commorbid conditions,it was no point to try any more aggressive intervention,family was realistic with the goals, and they decided later to pursue comfort care.Patient was transitioned to comfort care and he on 11/04/2022 at 22:30 pm.Family members were at bedside. Additional Data Advance directives?: Yes Discharge Plan Discharge Patient Disposition: Condition: Stable Probable Cause of Probable cause of : Cardiac arrest DS Attestations Time Spent in /Discharge Care*: greater than 30 min Quality - AMI: AMI present?: No Quality - Stroke: CVA present?: No Quality - VTE: VTE present?: No Coding Level of Care Code Acute Video Effects Editor for Reeseg Fwd Diagnoses Pneumonia J18.9 DVT (deep venous thrombosis) I82.409 Diastolic CHF I50.30
== END 2022-11-04 22:30 | disposition expired | DRG 871 ==
LOC: ER 10:00 → ICU 12:39
PROVIDERS: Internal Medicine; Admitting Provider Internal Medicine; Emergency Provider Family Medicine; Visit Provider Internal Medicine
DX: A41.9 Sepsis, unspecified organism (principal); I21.A1 Myocardial infarction type 2; J96.21 Acute and chronic respiratory failure with hypoxia; J18.9 Pneumonia, unspecified organism; I50.33 Acute on chronic diastolic (congestive) heart failure; K72.00 Acute and subacute hepatic failure without coma; I47.1 Supraventricular tachycardia; I48.91 Unspecified atrial fibrillation; I95.89 Other hypotension; I35.0 Nonrheumatic aortic (valve) stenosis; D63.0 Anemia in neoplastic disease; G47.33 Obstructive sleep apnea (adult) (pediatric); E78.5 Hyperlipidemia, unspecified; F41.9 Anxiety disorder, unspecified; R53.81 Other malaise; E87.6 Hypokalemia; Z86.718 Personal history of other venous thrombosis and embolism; Z86.16 Personal history of COVID-19; Z79.01 Long term (current) use of anticoagulants; Z87.891 Personal history of nicotine dependence; Z79.82 Long term (current) use of aspirin; Z51.5 Encounter for palliative care; Z85.72 Personal history of non-Hodgkin lymphomas
CPT/HCPCS: 36415; 36416; 36591; 36600; 51702; 71045; 71275; 80051; 80053; 80202; 81001; 82009; 82330; 82805; 82962; 83605; 83735; 83880; 84145; 84484; 85025; 86403; 87040; 87070; 87205; 87449; 87486; 87581; 87633; 87641; 87804; 92523; 92610; 93005; 93306; 94002; 94003; 94640; 94799; 96365; 96366; 96367; 96372; 99291; A4570; J0153; J0637; J0692; J1170; J1650; J1940; J1956; J2060; J2185; J2270; J2543; J2704; J3370; J3475; J3480; J3486; J3490; J7030; J7042; J7050; J7060; J7070; J7626; P9047; Q9967